=== PATIENT | male | born 1950 | race Caucasian/White ===

== ENCOUNTER 2017-08-03 18:41 | Observation (INO) | payer BC ==
--- OUTSIDE RECORDS SUMMARY | 2017-08-03 18:44 | XMS REPORT | Clinical Summary ---
:1950 Author Organization [facility] Address [address] [place] [address] Phone Care Team Providers Name Role Phone Unavailable Primary Care Provider Unavailable Allergies No Known Allergies Current Medications Prescription Sig. Disp. Refills Start Date End Date Status aspirin 81 MG Take 325 mg by Active chewable tablet mouth daily . cholecalciferol, Take 2,000 Active vitamin D3, 1,000 Units by mouth unit capsule daily . sertraline (ZOLOFT) Take 50 mg by Active 50 MG mouth daily. tabletIndications: Coronary artery disease involving [place] tribe heart without angina pectoris, unspecified vessel or lesion type QUEtiapine Take 50 mg by Active (SEROQUEL) 25 MG mouth nightly. tabletIndications: Coronary artery disease involving [place] heart without angina pectoris, unspecified vessel or lesion type atorvastatin Take 1 tablet 30 tablet 1 01/26/2017 01/26/2018 Active (LIPITOR) 40 MG (40 mg total) tablet by mouth nightly. folic acid Take 1 tablet 30 tablet 1 01/27/2017 01/27/2018 Active (FOLVITE) 1 MG (1 mg total) tablet by mouth daily. furosemide (LASIX) Take 1 tablet 30 tablet 1 01/26/2017 01/26/2018 Active 20 MG tablet (20 mg total) by mouth daily. metoprolol Take 1 tablet 60 tablet 1 01/26/2017 01/26/2018 Active (LOPRESSOR) 50 MG (50 mg total) tablet by mouth 2 (two) times daily. clopidogrel Take 300 mg by 01/11/2017 Discontinued (PLAVIX) 300 mg Tab mouth once. niacin (NIASPAN) Take 1,500 mg 01/11/2017 Discontinued 1000 MG CR tablet by mouth nightly. atorvastatin Take 5 mg by 01/26/2017 Discontinued (LIPITOR) 10 MG mouth daily . tablet multivitamin with Take 1 tablet 01/11/2017 Discontinued minerals tablet by mouth daily. coenzyme Q10 100 mg Take 100 mg by 01/11/2017 Discontinued capsule mouth daily. clopidogrel Take 75 mg by 01/26/2017 Discontinued (PLAVIX) 75 mg mouth daily. tabletIndications: Coronary artery disease involving [place] heart without angina pectoris, unspecified vessel or lesion type acetaminophen-codei Take 1-2 50 tablet 0 01/26/2017 02/05/2017 ne (TYLENOL #3) tablets by 300-30 mg per mouth every 4 tablet (four) hours as needed for up to 10 days. Max Daily Amount: 12 tablets Hospital, Clinic, or Ordered Dose Route Frequency Start Date End Date Status Other Facility Administered Medication chlorhexidine Top Once 01/13/2017 01/26/2017 Discontinued (HIBICLENS) external liquid 4%Indications: Coronary artery disease involving [place] heart without angina pectoris, unspecified vessel or lesion type chlorhexidine Top Once 01/13/2017 01/26/2017 Discontinued (HIBICLENS) external liquid 4%Indications: Coronary artery disease involving [place] heart without angina pectoris, unspecified vessel or lesion type Active Problems Problem Noted Date Acute postoperative pain 01/21/2017 Essential hypertension 01/21/2017 Coronary artery disease involving [place] 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) 01/19/2017 Other shock ([facility]) 01/19/2017 PA (myocardial infarction) ([facility]) 03/08/1997 Overview: Stents x3 2005 x1 Coronary artery disease Carotid artery occlusion High cholesterol Encounters Date Type Specialty Care Team Description 02/03/2017 Clinical Support Cardiology Salvador Burkett, Post-operative state (Primary Dx) 01/19/2017 - Hospital Encounter Cardiology Salvador Burkett, Coronary artery disease 01/26/2017 MD involving [place] tribe heart without angina pectoris, unspecified vessel or lesion type;Other shock ([facility]);Acute blood loss anemia;Acute pulmonary insufficiency following thoracic surgery ([facility]);S/P CABG x 4;Essential hypertension 01/19/2017 Procedure Pass 01/19/2017 Surgery Salvador Burkett, BYPASS,AORTO CORONARY RAVINDRA/SVG 01/11/2017 Hospital Encounter Salvador Burkett MD 01/11/2017 Office Visit Cardiology Salvador Burkett Coronary artery disease involving [place] tribe heart without angina pectoris, unspecified vessel or lesion type (Primary Dx);Coronary artery disease involving s[place]tz tribe coronary artery of s[place] tribe heart without angina pectoris;Occlusion of carotid artery, unspecified laterality;High cholesterol 01/11/2017 Anesthesia Event Isaiah Sloan AA 01/11/2017 Orders Only Cardiology Salvador Burkett Coronary artery disease of s[place]tz tribe artery of [place] tribe heart with stable angina pectoris (HCC) (Primary Dx);Coronary artery disease involving [place] tribe heart without angina pectoris, unspecified vessel or lesion type after 08/02/2016 Family History Medical History Relation Name Comments Heart disease Father Hypertension Mother Relation Name Status Comments Father Mother Social History Tobacco Use Types Packs/Day Years Used Date Former Smoker 2 15 Quit: 1986 Smokeless Tobacco: Never Used Alcohol Use Drinks/Week oz/Week Comments Yes 1 Glasses of wine 5.4 occ 8 Cans of beer 0 Standard drinks or equivalent Sex Assigned at Date Recorded Not on file Last Filed Vital Signs Vital Sign Reading Time Taken Blood Pressure 106/65 02/03/2017 10:37 AM [employer] Pulse 69 02/03/2017 10:37 AM [employer] Temperature 36.7 C (98.1 F) 02/03/2017 10:37 AM [employer] Respiratory Rate 16 02/03/2017 10:37 AM [employer] Oxygen Saturation 99% 02/03/2017 10:37 AM [employer] Inhaled Oxygen Concentration - - Weight 67.6 kg (149 lb) 02/03/2017 10:37 AM [employer] Height 180.3 cm (5' 11") 02/03/2017 10:37 AM [employer] Body Mass Index 20.78 02/03/2017 10:37 AM [employer] Plan of Treatment Health Maintenance Due Date Last Done Comments INFLUENZA VACCINE 12/06/2017 Procedures Procedure Name Priority Date/Time Associated Diagnosis Comments ENDOSCOPIC HARVEST,VEIN 01/19/2017 7:30 AM CAOD [employer] BYPASS,AORTO CORONARY 01/19/2017 7:30 AM CAOD RAVINDRA/SVG [employer] after 08/02/2016 Results RHYTHM STRIP - SCAN (02/18/2017 10:22 AM)Only the most recent of3 resultswithin the time period is included.PERMANENT LAB REPORT - SCAN (01/27/2017 11:20 AM) ECHOCARDIOGRAM REPORT - SCAN (01/26/2017 2:50 PM)CBC (Hemogram only) (2016 4:31 AM) Component Value Ref Range WBC 11.2 (H) 3.5 - 10.5 K/L RBC 2.92 (L) 4.63 - 6.08 M/L Hemoglobin 8.7 (L) 13.7 - 17.5 GM/DL Hematocrit 26.4 (L) 40.1 - 51.0 % MCV 90.4 79.0 - 92.2 fL MCH 29.8 25.7 - 32.2 pg MCHC 33.0 32.3 - 36.5 GM/DL RDW 13.4 11.6 - 14.4 % Platelets 461 (H) 150 - 450 K/CU MM MPV 9.5 9.4 - 12.4 fL nRBC 0 0 - 0 /100 WBC Specimen Performing Laboratory Blood - Arm, [address] [address] Magnesium (01/26/2017 4:31 AM)Only the most recent of6 resultswithin the time period is included. Component Value Ref Range Magnesium 1.7 1.6 - 2.6 mg/dL Specimen Performing Laboratory Blood - Arm, [address] [address] Basic Metabolic Panel (01/26/2017 4:31 AM)Only the most recent of8 resultswithin the time period is included. Component Value Ref Range Sodium 135 (L) 136 - 145 meq/L Potassium 4.2 3.5 - 5.1 meq/L Chloride 101 98 - 107 meq/L CO2 29 22 - 29 meq/L BUN 15 7 - 21 mg/dL Creatinine 0.89 0.57 - 1.25 mg/dL Glucose 91 70 - 105 mg/dL Calcium 8.8 8.4 - 10.2 mg/dL EGFR 86Comment: ESTIMATED GFR IS NOT ACCURATE mL/min/1.73 sq m CREATININE CLEARANCE IN PREDICTING GLOMERULAR FILTRATION RATE. ESTIMATED GFR IS NOT APPLICABLE FOR DIALYSIS PATIENTS. Specimen Performing Laboratory Blood - Arm, [address] [address] 2D Echo W/Doppler(CW/PW/Color) (01/25/2017 11:29 AM) Component Value Ref Range Ejection Fraction Specimen Performing Laboratory [facility] ECHO HEARTLAB MKCKESSON CPACS Narrative Transthoracic Echocardiography Report (TTE) Demographics Patient Name Sandeep MINOR of Study 01/25/2017 KAYLAH [id number] Male Visit Number [id number] Unknown [id number] Room Number 1130 Number Date of Birth2Referring Physician Age66 year(s)Fusion Operator Lazaro Whelan Interpreting Physician DAVE Alejandre Fellow Chayo Crocker Procedure Type of Study TTE procedure:2DECHO W DOPPLER(CW/PW/COLOR) (MI) Indications:Evaluation of LV Function Post AMI. Clinical History HGB 7.9 HCT 23.9 % S/P CABG x4 Acute blood loss anemia acute pulm insufficiency following thoracic surgery HTN PA Contrast Medium: Definity. Amount - 2 ml Height: 71 inches Weight: 65.77 kg (145 lbs) BSA: 1.84 m^2 BMI: 20.22 kg/m^2 HR: 97 bpm BP: 108/64 mmHg Summary LV endocardium is adequately visualized with IV ultrasound enhancing agent. The left ventricle is chamber size (by vol index) is normal. No evidence of LV hypertrophy. All of the LV segments contract normally . Septal motion is abnormal, likely related to prior cardiac surgery . LVEF by Raymundo's method of disk assessment is lower limits of normal (50-55%) . Grade 1 diastolic dysfunction (impaired relaxation and low-normal LA pressure). No significant pericardial effusion is visualized. The estimated RA pressure by IVC dynamics 0-5mmHg . TV structure is normal. A trace of tricuspid regurgitation. Unable to estimate peak systolic PA pressure; inadequate TR velocity signal. Previous Study No prior exam available for comparison. Signature Findings Rhythm/BPRegular sinus rhythm during the exam. Left Ventricle LV endocardium is adequately visualized with IV ultrasound enhancing agent. The left ventricle is chamber size (by vol index) is normal. No evidence of LV hypertrophy. All of the LV segments contract normally . Septal motion is abnormal, likely related to prior cardiac surgery . LVEF by Raymundo's method of disk assessment is lower limits of normal (50-55% ) . Grade 1 diastolic dysfunction (impaired relaxation and low-normal LA pressure). Left AtriumLA is incompletely visualized, but likely normal in size. Right VentricleThe right ventricular chamber size and systolic function are within normal limits. Right Atrium RA size is normal. Aortic Valve Normal AoV structure and function. Mitral Valve Normal MV structure. Trace mitral regurgitation. Tricuspid ValveTV structure is normal. A trace of tricuspid regurgitation. Unable to estimate peak systolic PA pressure; inadequate TR velocity signal. Pulmonic Valve Normal PV structure and function by limited views and Doppler. AortaAortic root size (SInus of Valsalva diameter) is normal . PericardiumNo significant pericardial effusion is visualized. IVC/SVC/PA/PV/PleuralThe estimated RA pressure by IVC dynamics 0-5mmHg . Chambers/Structures Left Ventricle LVEDV Raymundo's:66.38 ml LVESV Raymundo's:32.77 ml LVEF Raymundo's: 50.6 % LVEDVI: 36 ml/m^2 LVOT Diameter: 2.13 cmLVESVI: 18 ml/m^2 Aorta Ao Root S of Claudine.: 2.99 cm Vena Cava IVC Inspirium: 0.76 cmIVC Expirium: 0.88 cm Doppler/Quantitative Measurements Mitral Valve MV Peak E-Wave: 0.5 m/s MV Peak A-Wave: 0.59 m/s E/A Ratio: 0.85 Peak Gradient: 1.01 mmHg MV Iain. Peak: Tissue Doppler E' Lateral Velocity: 0.08 m/s E/E': 6.23 Aortic Valve Peak Velocity: 1.11 m/sMean Velocity: 0.8 m/s Peak Gradient: 4.89 mmHg Mean Gradient: 2.87 mmHg AV Area (continuity): 3.36 cm^2 AV VTI: 14.15 cm AV DVI: 0.94 LVOT Peak Velocity: 0.92 m/s Peak Gradient: 3.41 mmHg Mean Velocity: 0.61 m/s Mean Gradient: 1.7 mmHg LVOT Diameter: 2.13 cmLVOT VTI: 13.34 cm LVOT Area: 3.56 cm^2LVOT SV:47.51 ml LVOT CO: 4.61 l/min LVOT CI: 2.51 l/min/m^2 Tricuspid Valve TR Velocity: 1.31 m/s TR Gradient: 6.82 mmHg Procedure Note Interface, External Ris In - 01/26/2017 2:20 PM [employer] Transthoracic Echocardiography Report (TTE) Demographics Patient Name JERAD MINOR Date of Study 01/25/2017 KAYLAH Gender Male Visit Number [id number] Race Unknown Room Number 1130 Number Date of 1950 Referring Physician Age 66 year(s) Fusion Operator Lazaro Whelan Interpreting Malvin Winkler, Physician Fellow Chayo Crocker Procedure Type of Study TTE procedure:2DECHO W DOPPLER(CW/PW/COLOR) (MI) Indications:Evaluation of LV Function Post AMI. Clinical History HGB 7.9 HCT 23.9 % S/P CABG x4 Acute blood loss anemia acute pulm insufficiency following thoracic surgery HTN PA Contrast Medium: Definity. Amount - 2 ml Height: 71 inches Weight: 65.77 kg (145 lbs) BSA: 1.84 m^2 BMI: 20.22 kg/m^2 HR: 97 bpm BP: 108/64 mmHg Summary LV endocardium is adequately visualized with IV ultrasound enhancing agent. The left ventricle is chamber size (by vol index) is normal. No evidence of LV hypertrophy. All of the LV segments contract normally . Septal motion is abnormal, likely related to prior cardiac surgery . LVEF by Raymundo's method of disk assessment is lower limits of normal (50-55%) . Grade 1 diastolic dysfunction (impaired relaxation and low-normal LA pressure). No significant pericardial effusion is visualized. The estimated RA pressure by IVC dynamics 0-5mmHg . TV structure is normal. A trace of tricuspid regurgitation. Unable to estimate peak systolic PA pressure; inadequate TR velocity signal. Previous Study No prior exam available for comparison. Signature Findings Rhythm/BP Regular sinus rhythm during the exam. Left Ventricle LV endocardium is adequately visualized with IV ultrasound enhancing agent. The left ventricle is chamber size (by vol index) is normal. No evidence of LV hypertrophy. All of the LV segments contract normally . Septal motion is abnormal, likely related to prior cardiac surgery . LVEF by Raymundo's method of disk assessment is lower limits of normal (50-55%) . Grade 1 diastolic dysfunction (impaired relaxation and low-normal LA pressure). Left Atrium LA is incompletely visualized, but likely normal in size. Right Ventricle The right ventricular chamber size and systolic function are within normal limits. Right Atrium RA size is normal. Aortic Valve Normal AoV structure and function. Mitral Valve Normal MV structure. Trace mitral regurgitation. Tricuspid Valve TV structure is normal. A trace of tricuspid regurgitation. Unable to estimate peak systolic PA pressure; inadequate TR velocity signal. Pulmonic Valve Normal PV structure and function by limited views and Doppler. Aorta Aortic root size (SInus of Valsalva diameter) is normal . Pericardium No significant pericardial effusion is visualized. IVC/SVC/PA/PV/Pleural The estimated RA pressure by IVC dynamics 0-5mmHg . Chambers/Structures Left Ventricle LVEDV Raymundo's:66.38 ml LVESV Raymundo's:32.77 ml LVEF Raymundo's: 50.6 % LVEDVI: 36 ml/m^2 LVOT Diameter: 2.13 cm LVESVI: 18 ml/m^2 Aorta Ao Root S of Claudine.: 2.99 cm Vena Cava IVC Inspirium: 0.76 cm IVC Expirium: 0.88 cm Doppler/Quantitative Measurements Mitral Valve MV Peak E-Wave: 0.5 m/s MV Peak A-Wave: 0.59 m/s E/A Ratio: 0.85 Peak Gradient: 1.01 mmHg MV Iain. Peak: Tissue Doppler E' Lateral Velocity: 0.08 m/s E/E': 6.23 Aortic Valve Peak Velocity: 1.11 m/s Mean Velocity: 0.8 m/s Peak Gradient: 4.89 mmHg Mean Gradient: 2.87 mmHg AV Area (continuity): 3.36 cm^2 AV VTI: 14.15 cm AV DVI: 0.94 LVOT Peak Velocity: 0.92 m/s Peak Gradient: 3.41 mmHg Mean Velocity: 0.61 m/s Mean Gradient: 1.7 mmHg LVOT Diameter: 2.13 cm LVOT VTI: 13.34 cm LVOT Area: 3.56 cm^2 LVOT SV:47.51 ml LVOT CO: 4.61 l/min LVOT CI: 2.51 l/min/m^2 Tricuspid Valve TR Velocity: 1.31 m/s TR Gradient: 6.82 mmHg Iron, TIBC, % sat. (without ferritin) (01/25/2017 10:16 AM) Component Value Ref Range Iron 22 (L) 40 - 160 ug/dL TIBC 248 (L) 250 - 450 ug/dL Iron % Saturation 9 (L) 20 - 55 % Specimen Performing Laboratory Blood [address] [address] Ferritin (01/25/2017 10:16 AM) Component Value Ref Range Ferritin 412 (H) 5 - 275 ng/mL Specimen Performing Laboratory Blood [address] [address] XR chest 1 view portable / bedside (01/25/2017 4:52 AM)Only the most recent of9 resultswithin the time period is included. Specimen Performing Laboratory GE RIS Narrative FINAL REPORT Chest one view INDICATION: Pneumothorax COMPARISON: 01/24/2017 IMPRESSION: A small left apical pneumothorax is not significantly changed post chest tube removal. Median sternotomy changes are noted. The cardiomediastinal contours are stable. Bilateral interstitial and groundglass lung opacities are stable with no new consolidation seen. There is pleural thickening with small pleural effusions. Signed: Meme Houston MD Report Verified Date/Time:01/25/2017 07:36:17 Reading Location: [facility] B1 C013V Neuro Reading Room Procedure Note Interface, External Ris In - 01/25/2017 7:38 AM [employer] FINAL REPORT Chest one view INDICATION: Pneumothorax COMPARISON: 01/24/2017 IMPRESSION: A small left apical pneumothorax is not significantly changed post chest tube removal. Median sternotomy changes are noted. The cardiomediastinal contours are stable. Bilateral interstitial and groundglass lung opacities are stable with no new consolidation seen. There is pleural thickening with small pleural effusions. Signed: Meme Houston MD Report Verified Date/Time: 01/25/2017 07:36:17 Reading Location: [facility] C013V Neuro Reading Room with platelet count + automated diff (01/24/2017 5:10 AM)Only the most recent of8 resultswithin the time period is included. Component Value Ref Range WBC 11.2 (H) 3.5 - 10.5 K/L RBC 2.67 (L) 4.63 - 6.08 M/L Hemoglobin 7.9 (L) 13.7 - 17.5 GM/DL Hematocrit 23.9 (L) 40.1 - 51.0 % MCV 89.5 79.0 - 92.2 fL MCH 29.6 25.7 - 32.2 pg MCHC 33.1 32.3 - 36.5 GM/DL RDW 13.4 11.6 - 14.4 % Platelets 340 150 - 450 K/CU MM MPV 9.6 9.4 - 12.4 fL nRBC 0 0 - 0 /100 WBC % Neutros 64 % % Lymphs 13 % % Monos 12 % % Eos 7 % % Baso 1 % # Neutros 7.13 (H) 1.78 - 5.38 K/L # Lymphs 1.50 1.32 - 3.57 K/L # Monos 1.31 (H) 0.30 - 0.82 K/L # Eos 0.79 (H) 0.04 - 0.54 K/L # Baso 0.08 0.01 - 0.08 K/L Immature Granulocytes-Relative 3 (H) 0 - 1 % Specimen Performing Laboratory Blood - Arm, Left [address] [address] CBC with platelet count + automated diff (01/24/2017 5:10 AM)Only the most recent of8 resultswithin the time period is included. Specimen Performing Laboratory Blood Narrative The following orders were created for panel order CBC with platelet count + automated diff. Procedure Abnormality Status --------- ------ CBC with platelet count ...[[id number]]AbnormalFinal result Please view results for these tests on the individual orders. Calcium, Ionized (01/23/2017 4:25 AM)Only the most recent of9 resultswithin the time period is included. Component Value Ref Range Calcium, Ion 1.14 1.12 - 1.27 mmol/L pH, Blood 7.36 Specimen Performing Laboratory Blood [address] [address] TRANSFUSION SERVICE REPORT - SCAN (01/21/2017 5:41 PM)Only the most recent of3 resultswithin the time period is included.Prepare PLT (01/20/2017 11:54 PM) Component Value Ref Range Unit ABO B Pos UNIT NUMBER [id number] Status TRANSFUSED Blood Bank Product PLATELETS PRODUCT CODE W0941E40 Unit ABO O Pos UNIT NUMBER [id number] Status TRANSFUSED Blood Bank Product PLATELETS PRODUCT CODE [id number] Specimen Performing Laboratory [employer] [place] Prepare cryoprecipitate (01/20/2017 11:54 PM) Component Value Ref Range Unit ABO B Pos UNIT NUMBER [id number] Status TRANSFUSED Blood Bank Product CRYOPRECIPITATE PRODUCT CODE [id number] Specimen Performing Laboratory [employer] [place] Prepare RBC (01/20/2017 11:54 PM)Only the most recent of2 resultswithin the time period is included. Component Value Ref Range CROSSMATCH COMPATIBLE Unit ABO O Pos UNIT NUMBER [id number] Status TRANSFUSED Blood Bank Product RED BLOOD CELLS PRODUCT CODE U8671G43 CROSSMATCH COMPATIBLE Unit ABO O Pos UNIT NUMBER [id number] Status TRANSFUSED Blood Bank Product RED BLOOD CELLS PRODUCT CODE [id number] Specimen Performing Laboratory [employer] [place] POC-Glucose meter (01/20/2017 5:47 AM)Only the most recent of5 resultswithin the time period is included. Component Value Ref Range POC-Glucose Meter 149 (H)Comment: TESTED AT [address] 70 - 110 mg/[place] [address] Specimen Performing Laboratory Blood [address] [address] Glucose-Stat Lab (01/19/2017 5:09 PM)Only the most recent of6 resultswithin the time period is included. Component Value Ref Range Glucose 153 (H) 70 - 110 mg/dL Specimen Performing Laboratory Blood, Arterial [address] [address] Blood gas, arterial (01/19/2017 5:09 PM)Only the most recent of7 resultswithin the time period is included. Component Value Ref Range pH, Arterial 7.38 7.35 - 7.45 pCO2, Arterial 42 35 - 45 mmHg pO2, Arterial 187 (H) 80 - 90 mmHg O2 Sat, Arterial 99.3 (H) 96.0 - 97.0 % HCO3, Arterial 25 21 - 29 mmol/L Base Excess, Arterial -0.6 -2.0 - 3.0 mmol/L Patient Temperature 36.7 C FIO2 40.0 % Specimen Performing Laboratory Blood, Arterial [address] [address] ECG 12 lead (01/19/2017 5:09 PM)Only the most recent of2 resultswithin the time period is included. Specimen Performing Laboratory GE MUSE Narrative Ventricular Rate 97 BPM Atrial Rate 97 BPM P-R Interval 158 ms QRS Duration 88 ms Q-T Interval 366 ms QTC Calculation(Bazett) 464 ms P [place] 87 degrees R [place] 76 degrees T [place] 71 degrees Normal sinus rhythm Low voltage QRS ST elevation, consider early repolarization, pericarditis, or injury Prolonged QT Abnormal ECG When compared with ECG of 11-JAN-2017 11:20, Vent. rate has increased BY34 BPM QRS voltage has decreased Criteria for Septal infarct are no longer Present ST elevation now present in Anterolateral leads , consider STEMI QT has lengthened Confirmed by MD DEANDRE, MOISES ([id number]) on 01/20/2017 6:02:59 AM Procedure Note Interface, External Ris In - 01/20/2017 6:03 AM [employer] Ventricular Rate 97 BPM Atrial Rate 97 BPM P-R Interval 158 ms QRS Duration 88 ms Q-T Interval 366 ms QTC Calculation(Bazett) 464 ms P [place] 87 degrees R [place] 76 degrees T [place] 71 degrees Normal sinus rhythm Low voltage QRS ST elevation, consider early repolarization, pericarditis, or injury Prolonged QT Abnormal ECG When compared with ECG of 11-JAN-2017 11:20, Vent. rate has increased BY 34 BPM QRS voltage has decreased Criteria for Septal infarct are no longer Present ST elevation now present in Anterolateral leads , consider STEMI QT has lengthened Confirmed by MD DEANDRE, MOISES ([id number]) on 01/20/2017 6:02:59 AM Hemoglobin and hematocrit (01/19/2017 4:29 PM) Component Value Ref Range Hemoglobin 8.3 (L) 13.7 - 17.5 GM/DL Hematocrit 25.0 (L) 40.1 - 51.0 % Specimen Performing Laboratory Blood [address] [address] Lactic acid, arterial, whole blood (01/19/2017 1:09 PM) Component Value Ref Range Lactate, Art 1.6 0.5 - 2.2 mmol/L Specimen Performing Laboratory Blood, Arterial [address] [address] Narrative Effective 07/10/2015: Units/Reference Range Change New: 0.5-2.2 mmol/LPrevious: 5-20 mg/dL Sodium Na-Stat Lab (01/19/2017 1:07 PM)Only the most recent of6 resultswithin the time period is included. Component Value Ref Range Sodium 136 135 - 148 meq/L Specimen Performing Laboratory Blood, Arterial [address] [address] Oxygen saturation, measured (01/19/2017 1:07 PM) Component Value Ref Range O2 Saturation (Measured) 90.4 % Specimen Performing Laboratory Blood [address] [address] Thromboelastograph (TEG) (01/19/2017 1:07 PM)Only the most recent of2 resultswithin the time period is included. Component Value Ref Range TEG Activated Clotting Time 5.8 4.0 - 7.0 minutes TEG Fibrinogen Activity 71.3 61.0 - 73.0 degrees TEG Platelet Aggregation 59.8 55.0 - 65.0 MM TEG Fibrinolysis 0.1 0.0 - 5.0 % TEG-H Activated Clotting Time 5.4 4.0 - 7.0 minutes TEG-H Fibrinogen Activity 71.8 61.0 - 73.0 degrees TEG-H Platelet Aggregation 64.8 55.0 - 65.0 MM TEG-H Fibrinolysis 0.0 0.0 - 5.0 % Specimen Performing Laboratory Blood [address] [address] aPTT (01/19/2017 1:07 PM)Only the most recent of2 resultswithin the time period is included. Component Value Ref Range PTT 34.2 22.5 - 36.0 seconds Specimen Performing Laboratory [address] [address] Prothrombin time/INR (01/19/2017 1:07 PM)Only the most recent of3 resultswithin the time period is included. Component Value Ref Range Protime 17.4 (H) 11.7 - 14.7 seconds INR 1.4 <=5.9 Specimen Performing Laboratory Blood [address] [address] Narrative RECOMMENDED COUMADIN/WARFARIN INR THERAPY RANGES STANDARD DOSE: 2.0 - 3.0 Includes: PROPHYLAXIS for venous thrombosis, systemic embolization; TREATMENT for venous thrombosis and/or pulmonary embolus. HIGH RISK: Target INR is 2.5-3.5 for patients with mechanical heart valves. Fibrinogen (01/19/2017 1:07 PM)Only the most recent of2 resultswithin the time period is included. Component Value Ref Range Fibrinogen 233 225 - 434 mg/dl Specimen Performing Laboratory Blood [address] [address] [facility] Critical Labs (ABG,NA,K,H&H,GLU) (01/19/2017 12:14 PM)Only the most recent of5 resultswithin the time period is included. Specimen Performing Laboratory Blood, Arterial Narrative The following orders were created for panel order [facility] Critical Labs (ABG,NA,K,H&H,GLU). Procedure Abnormality Status --------- ------ Blood gas, arterial[[id number]]AbnormalFinal result Sodium Na-Stat Lab[[id number]] NormalFinal result Potassium-Stat Lab[[id number]] NormalFinal result Glucose-Stat Lab[[id number]] AbnormalFinal result HGB/HCT (H&H)-Stat Lab[[id number]] Abnormal Final result Please view results for these tests on the individual orders. Potassium-Stat Lab (01/19/2017 12:14 PM)Only the most recent of5 resultswithin the time period is included. Component Value Ref Range Potassium 4.7 3.6 - 5.5 meq/L Specimen Performing Laboratory Blood, Arterial [address] [address] HGB/HCT (H&H)-Stat Lab (01/19/2017 12:14 PM)Only the most recent of5 resultswithin the time period is included. Component Value Ref Range Hemoglobin 9.2 (L) 13.0 - 16.8 g/dL Hematocrit 27.0 (L) 40.0 - 50.0 % Specimen Performing Laboratory Blood, Arterial [address] [address] POC ACTIVATED CLOTTING TIME (01/19/2017 10:00 AM)Only the most recent of3 resultswithin the time period is included. Component Value Ref Range Activated Clotting Time 109Comment: TESTED AT [address] sec [address] Specimen Performing Laboratory Blood [address] [address] Platelet count (01/19/2017 9:48 AM) Component Value Ref Range Platelets 131 (L) 150 - 450 K/CU MM Specimen Performing Laboratory Blood [address] [address] Blood gas, venous (01/19/2017 9:03 AM) Component Value Ref Range pH, Joe 7.36 7.32 - 7.42 pCO2, Joe 42 41 - 51 mmHg pO2, Joe 41 (H) 25 - 40 mmHg O2 Sat, Joe 88.5 (H) 40.0 - 70.0 % HCO3, Joe 25 21 - 29 mmol/L Base Excess, Joe -1.7 -2.0 - 3.0 mmol/L Patient Temperature 31.1 C FIO2 80.0 % Specimen Performing Laboratory Blood [address] [address] Platelet Aggregation: Function Screen (01/19/2017 6:16 AM) Component Value Ref Range Weak ADP 67 60 - 91 % Plt. Function Screen Interpretation 60-100% indicates normal platelet function Pathologist: Nando Olmedo MD (electronic signature) Platelets 272 150 - 450 K/CU MM Specimen Performing Laboratory Blood [address] [address] XR chest 2 views (01/11/2017 11:23 AM) Specimen Performing Laboratory GE RIS Narrative FINAL REPORT Chest x-ray, PA and lateral views Clinical History: Pre-Op Comparison:Correlated with CT dated August 09, 2014 Findings: Cardiomediastinal contours are unremarkable. There is a peripheral opacity in the right upper lung, possibly reflecting scarring versus a persistent cavitary lesion. Suggest CT correlation. Several additional tiny nodular opacities are seen at the right apex. Left lung is clear. No pneumothorax, or pleural effusion. Appear hyperinflated with increased retrosternal space and flattening of the diaphragm. Osseous structures the hamstring mild degenerative changes. Impression: Hyperinflation, suggestive of COPD/emphysema. Peripheral opacity in the right upper lung may reflect scarring versus persistent cavitary lesion. Small nodular opacities at the right apex. Suggest CT correlation if clinically appropriate. Signed: Fiona Walker MD Report Verified Date/Time:01/11/2017 12:03:27 Reading Location: [facility] Radiology Reading Room Procedure Note Interface, External Ris In - 01/11/2017 12:05 PM [employer] FINAL REPORT Chest x-ray, PA and lateral views Clinical History: Pre-Op Comparison: Correlated with CT dated August 09, 2014 Findings: Cardiomediastinal contours are unremarkable. There is a peripheral opacity in the right upper lung, possibly reflecting scarring versus a persistent cavitary lesion. Suggest CT correlation. Several additional tiny nodular opacities are seen at the right apex. Left lung is clear. No pneumothorax, or pleural effusion. Appear hyperinflated with increased retrosternal space and flattening of the diaphragm. Osseous structures the hamstring mild degenerative changes. Impression: Hyperinflation, suggestive of COPD/emphysema. Peripheral opacity in the right upper lung may reflect scarring versus persistent cavitary lesion. Small nodular opacities at the right apex. Suggest CT correlation if clinically appropriate. Signed: Fiona Walker MD Report Verified Date/Time: 01/11/2017 12:03:27 Reading Location: [facility] Radiology Reading Room Type and screen, automated (01/11/2017 10:48 AM) Component Value Ref Range ABO/RH AUTOMATED (BEAKER) O POSITIVE Ab Scrn NEGATIVE Specimen Performing Laboratory Blood [address] [address] Hemoglobin A1c (01/11/2017 10:48 AM) Component Value Ref Range Hemoglobin A1C 5.5 4.3 - 6.1 % Specimen Performing Laboratory Blood [address] [address] after 08/02/2016 Advance Directives Patient has advance directives. For more information, please contact:[address] [phone]
--- OUTSIDE RECORDS SUMMARY | 2017-08-03 18:45 | XMS REPORT ---
:1950 Author Organization [facility] Address [address] [place] [address] Care Team Providers Name Role Phone BEA LEIVA Unavailable Unavailable Problems This patient has no known problems. Allergies, Adverse Reactions, Alerts This patient has no known allergies or adverse reactions. Medications This patient has no known medications. Results Test Description Test Time Test Comments Text Results Atomic Results Result Comments MAGNESIUM 2017-01-26 07:36:00 Test Item Value Reference Range Comments MAGNESIUM (BEAKER) (test qjgd=085) 1.7 mg/dL 1.6-2.6 BASIC METABOLIC [id number] 07:36:00 Test Item Value Reference Range Comments SODIUM (BEAKER) (test 135 meq/L 136-145 oggl=574) POTASSIUM (BEAKER) (test 4.2 meq/L 3.5-5.1 gnjd=202) CHLORIDE (BEAKER) (test 101 meq/L 98-107 uxvy=144) CO2 (BEAKER) (test 29 meq/L 22-29 vfzu=436) BLOOD UREA NITROGEN 15 mg/dL 7-21 (BEAKER) (test esfy=813) CREATININE (BEAKER) (test 0.89 mg/dL 0.57-1.25 kkqn=661) GLUCOSE RANDOM (BEAKER) 91 mg/dL 70-105 (test ztfm=224) CALCIUM (BEAKER) (test 8.8 mg/dL 8.4-10.2 rwsz=149) EGFR (BEAKER) (test 86 mL/min/1.73 sq m ESTIMATED GFR IS NOT xghy=2674) ACCURATE CREATININE CLEARANCE IN PREDICTING GLOMERULAR FILTRATION RATE. ESTIMATED GFR IS NOT APPLICABLE FOR DIALYSIS PATIENTS. CBC (HEMOGRAM ONLY)2017-01-26 07:09:00 Test Item Value Reference Range Comments WHITE BLOOD CELL COUNT (BEAKER) (test fosy=669) 11.2 K/ L 3.5-10.5 RED BLOOD CELL COUNT (BEAKER) (test ohsx=121) 2.92 M/ L 4.63-6.08 HEMOGLOBIN (BEAKER) (test xcjm=051) 8.7 GM/DL 13.7-17.5 HEMATOCRIT (BEAKER) (test txvh=746) 26.4 % 40.1-51.0 MEAN CORPUSCULAR VOLUME (BEAKER) (test aglt=793) 90.4 fL 79.0-92.2 MEAN CORPUSCULAR HEMOGLOBIN (BEAKER) (test 29.8 pg 25.7-32.2 eobm=348) MEAN CORPUSCULAR HEMOGLOBIN CONC (BEAKER) (test 33.0 GM/DL 32.3-36.5 pojv=343) RED CELL DISTRIBUTION WIDTH (BEAKER) (test 13.4 % 11.6-14.4 dsbq=414) PLATELET COUNT (BEAKER) (test zhdi=759) 461 K/CU MM 150-450 MEAN PLATELET VOLUME (BEAKER) (test uruz=339) 9.5 fL 9.4-12.4 NUCLEATED RED BLOOD CELLS (BEAKER) (test 0 /100 WBC 0-0 pdvb=002) [id number] 11:04:00 Test Item Value Reference Range Comments FERRITIN (BEAKER) (test lpio=343) 412 ng/mL 5-275 IRON, TIBC, % SAT. (WITHOUT FERRITIN)2017-01-25 10:47:00 Test Item Value Reference Range Comments IRON (BEAKER) (test rpnt=359) 22 ug/dL 40-160 TOTAL IRON BINDING CAPACITY (BEAKER) (test 248 ug/dL 250-450 arap=138) IRON % SATURATION (2) (BEAKER) (test shnr=5224) 9 % 20-55 RAD, CHEST, 1 VIEW, NON [id number] 07:36:00Reason for exam:->ptxShould this be performed at the bedside?->YesFINAL REPORT Chest one view INDICATION: Pneumothorax COMPARISON: 01/24/2017 IMPRESSION: A small left apical pneumothorax is not significantly changed post chest tube removal. Median sternotomy changes are noted. The cardiomediastinal contours are stable. Bilateral interstitial and groundglass lung opacities are stable with no new consolidation seen. There is pleural thickening with small pleural effusions. Signed: Meme Houston MDReport Verified Date/Time: 2016 07:36:17 Reading Location: [address] Neuro Reading Room RAD, CHEST, 1 VIEW, NON [id number] 08:28:00Reason for exam:->ptxShould this be performed at the bedside?->YesFINAL REPORT CLINICAL HISTORY: ptx TECHNIQUE: 1 view of the chest. COMPARISON: 01/23/2017 IMPRESSION: A trace left apical pneumothorax is unchanged. Left lower chest tube is again seen. Minimal lower lung airspace opacities and trace bilateral pleural effusions are unchanged. The cardiomediastinal silhouette is magnified by technique with sternotomy wires. Signed: Marbella Baird MDReport Verified Date/Time: 01/24/2017 08:28:50 Reading Location: [address] Neuro Reading Room BASIC METABOLIC [id number] 06:24:00 Test Item Value Reference Range Comments SODIUM (BEAKER) (test 135 meq/L 136-145 fgoy=107) POTASSIUM (BEAKER) (test 4.0 meq/L 3.5-5.1 ggct=250) CHLORIDE (BEAKER) (test 104 meq/L 98-107 nmsh=042) CO2 (BEAKER) (test 26 meq/L 22-29 bmmd=046) BLOOD UREA NITROGEN 15 mg/dL 7-21 (BEAKER) (test mpzs=162) CREATININE (BEAKER) (test 0.86 mg/dL 0.57-1.25 iwil=875) GLUCOSE RANDOM (BEAKER) 97 mg/dL 70-105 (test hipf=545) CALCIUM (BEAKER) (test 8.4 mg/dL 8.4-10.2 ftzd=708) EGFR (BEAKER) (test 89 mL/min/1.73 sq m ESTIMATED GFR IS NOT cogo=4073) ACCURATE CREATININE CLEARANCE IN PREDICTING GLOMERULAR FILTRATION RATE. ESTIMATED GFR IS NOT APPLICABLE FOR DIALYSIS PATIENTS. CBC W/PLT COUNT & AUTO [id number] 05:30:00 Test Item Value Reference Range Comments WHITE BLOOD CELL COUNT (BEAKER) (test hazx=861) 11.2 K/ L 3.5-10.5 RED BLOOD CELL COUNT (BEAKER) (test hgdu=102) 2.67 M/ L 4.63-6.08 HEMOGLOBIN (BEAKER) (test srfw=143) 7.9 GM/DL 13.7-17.5 HEMATOCRIT (BEAKER) (test egxf=795) 23.9 % 40.1-51.0 MEAN CORPUSCULAR VOLUME (BEAKER) (test pixg=520) 89.5 fL 79.0-92.2 MEAN CORPUSCULAR HEMOGLOBIN (BEAKER) (test 29.6 pg 25.7-32.2 rosj=293) MEAN CORPUSCULAR HEMOGLOBIN CONC (BEAKER) (test 33.1 GM/DL 32.3-36.5 slfy=950) RED CELL DISTRIBUTION WIDTH (BEAKER) (test 13.4 % 11.6-14.4 jttd=235) PLATELET COUNT (BEAKER) (test vyiy=103) 340 K/CU MM 150-450 MEAN PLATELET VOLUME (BEAKER) (test bxfh=910) 9.6 fL 9.4-12.4 NUCLEATED RED BLOOD CELLS (BEAKER) (test 0 /100 WBC 0-0 mfmc=514) NEUTROPHILS RELATIVE PERCENT (BEAKER) (test 64 % bmeg=008) LYMPHOCYTES RELATIVE PERCENT (BEAKER) (test 13 % kybt=088) MONOCYTES RELATIVE PERCENT (BEAKER) (test 12 % hnra=626) EOSINOPHILS RELATIVE PERCENT (BEAKER) (test 7 % xmfw=811) BASOPHILS RELATIVE PERCENT (BEAKER) (test 1 % epov=540) NEUTROPHILS ABSOLUTE COUNT (BEAKER) (test 7.13 K/ L 1.78-5.38 tghm=379) LYMPHOCYTES ABSOLUTE COUNT (BEAKER) (test 1.50 K/ L 1.32-3.57 hiid=258) MONOCYTES ABSOLUTE COUNT (BEAKER) (test 1.31 K/ L 0.30-0.82 gtwb=722) EOSINOPHILS ABSOLUTE COUNT (BEAKER) (test 0.79 K/ L 0.04-0.54 xtki=740) BASOPHILS ABSOLUTE COUNT (BEAKER) (test 0.08 K/ L 0.01-0.08 lyuy=567) IMMATURE GRANULOCYTES-RELATIVE PERCENT (BEAKER) 3 % 0-1 (test sksq=2305) CBC W/PLT COUNT & AUTO [id number] 06:40:00 Test Item Value Reference Range Comments WHITE BLOOD CELL COUNT (BEAKER) (test mpri=716) 10.7 K/ L 3.5-10.5 RED BLOOD CELL COUNT (BEAKER) (test qkga=425) 3.05 M/ L 4.63-6.08 HEMOGLOBIN (BEAKER) (test frpe=060) 8.9 GM/DL 13.7-17.5 HEMATOCRIT (BEAKER) (test wyma=272) 27.4 % 40.1-51.0 MEAN CORPUSCULAR VOLUME (BEAKER) (test cjub=051) 89.8 fL 79.0-92.2 MEAN CORPUSCULAR HEMOGLOBIN (BEAKER) (test 29.2 pg 25.7-32.2 vskt=183) MEAN CORPUSCULAR HEMOGLOBIN CONC (BEAKER) (test 32.5 GM/DL 32.3-36.5 rukq=822) RED CELL DISTRIBUTION WIDTH (BEAKER) (test 13.5 % 11.6-14.4 psao=065) PLATELET COUNT (BEAKER) (test ybvq=262) 295 K/CU MM 150-450 MEAN PLATELET VOLUME (BEAKER) (test bvut=393) 10.1 fL 9.4-12.4 NUCLEATED RED BLOOD CELLS (BEAKER) (test 0 /100 WBC 0-0 sxnx=403) NEUTROPHILS RELATIVE PERCENT (BEAKER) (test 66 % fjuz=547) LYMPHOCYTES RELATIVE PERCENT (BEAKER) (test 12 % jrwe=313) MONOCYTES RELATIVE PERCENT (BEAKER) (test 11 % ivqv=023) EOSINOPHILS RELATIVE PERCENT (BEAKER) (test 10 % kflt=306) BASOPHILS RELATIVE PERCENT (BEAKER) (test 1 % tqve=517) NEUTROPHILS ABSOLUTE COUNT (BEAKER) (test 7.02 K/ L 1.78-5.38 fxbq=851) LYMPHOCYTES ABSOLUTE COUNT (BEAKER) (test 1.29 K/ L 1.32-3.57 oihn=897) MONOCYTES ABSOLUTE COUNT (BEAKER) (test 1.19 K/ L 0.30-0.82 zgmw=831) EOSINOPHILS ABSOLUTE COUNT (BEAKER) (test 1.04 K/ L 0.04-0.54 hyqh=924) BASOPHILS ABSOLUTE COUNT (BEAKER) (test 0.09 K/ L 0.01-0.08 zxro=789) IMMATURE GRANULOCYTES-RELATIVE PERCENT (BEAKER) 1 % 0-1 (test omgf=0236) [id number] 06:27:00 Test Item Value Reference Range Comments MAGNESIUM (BEAKER) (test 2.0 mg/dL 1.6-2.6 Specimen slightly hemolyzed zzbr=492) BASIC METABOLIC [id number] 06:27:00 Test Item Value Reference Range Comments SODIUM (BEAKER) (test 133 meq/L 136-145 yfut=321) POTASSIUM (BEAKER) (test 4.3 meq/L 3.5-5.1 Specimen slightly hftg=031) hemolyzed CHLORIDE (BEAKER) (test 102 meq/L 98-107 czen=097) CO2 (BEAKER) (test 27 meq/L 22-29 eqdo=272) BLOOD UREA NITROGEN 14 mg/dL 7-21 (BEAKER) (test zand=020) CREATININE (BEAKER) (test 0.84 mg/dL 0.57-1.25 Specimen slightly mjhe=099) hemolyzed GLUCOSE RANDOM (BEAKER) 101 mg/dL 70-105 (test modf=367) CALCIUM (BEAKER) (test 8.2 mg/dL 8.4-10.2 yswz=668) EGFR (BEAKER) (test 92 mL/min/1.73 sq m ESTIMATED GFR IS NOT qdtd=7111) ACCURATE CREATININE CLEARANCE IN PREDICTING GLOMERULAR FILTRATION RATE. ESTIMATED GFR IS NOT APPLICABLE FOR DIALYSIS PATIENTS. RAD, CHEST, 1 VIEW, NON [id number] 05:59:00Reason for exam:->s/p CABG, Chest tube in placeReason for exam:->chest tube found to be clampedShould this be performed at the bedside?->YesFINAL REPORT RAD , CHEST, 1 VIEW, NON DEPT INDICATION: s/p CABG, Chest tube inplacechest tube found to be clamped COMPARISON: Chest x-ray from yesterday TECHNIQUE: Single frontalview of the chest. IMPRESSION:Stable chest tube.Stable to slight improvement in the left apical pneumothorax.Stable cardiomegaly. Silhouette.Stable fibrotic changes in the lung apices and bronchiectasis in the mid and upper lungs which could reflect a remote prior mycobacterial infection.No acute osseous abnormality. Signed: Joe Real MDReport Verified Date/Time: 01/23/2017 05:59:29 Reading Location: [facility] [id number] Ortho Consult Reading Room Electronically signed by: JOE REAL MD on 2016 05:59 AMCALCIUM, [id number] 05:34:00 Test Item Value Reference Range Comments CALCIUM IONIZED (BEAKER) (test ynxy=221) 1.14 mmol/L 1.12-1.27 PH, BLOOD (BEAKER) (test lmvl=0056) 7.36 RAD, CHEST, 1 VIEW, NON [id number] 15:23:00Reason for exam:->ptxShould this be performed at the bedside?->YesFINAL REPORT Chest one view. Clinical history: ptx Comparison: 01/22/2017 Discussion: A frontal chest is provided. Cardiomediastinal contours are unchanged. A left chest tube is in stable position. A tiny left apical pneumothorax is unchanged. There is mild bibasilar atelectasis. Right upper lung lesion is again seen. No large effusion. Signed: Fiona Walker Verified Date/Time: 01/22/2017 15:23: 39 Reading Location: [facility] [id number] Consult Reading Room RAD, CHEST, 1 VIEW, NON [id number] 07:57:00Reason for exam:->s/p ACBx4, chest tubesFINAL REPORT Chest one view. Clinical history: s/p ACBx4, chest tubes Comparison: 01/21/2017 Discussion: A frontal chest is provided. Cardiomediastinal contours are unchanged.Lines and tubes are in stable position. No new consolidation. Small left apical pneumothorax is grossly unchanged. Probable small bilateral effusions. Signed: Fiona Walker Verified Date/Time: 01/22/2017 07:57:14 Reading Location: [facility] Radiology Reading Room Electronically signed by: FIONA WALKER M.D. on 01/22 07:57 [id number] 07:13:00 Test Item Value Reference Range Comments MAGNESIUM (BEAKER) (test hmkt=441) 1.5 mg/dL 1.6-2.6 BASIC METABOLIC [id number] 07:13:00 Test Item Value Reference Range Comments SODIUM (BEAKER) (test 132 meq/L 136-145 iitf=085) POTASSIUM (BEAKER) (test 3.7 meq/L 3.5-5.1 moip=565) CHLORIDE (BEAKER) (test 101 meq/L 98-107 mdpj=384) CO2 (BEAKER) (test 24 meq/L 22-29 mohx=572) BLOOD UREA NITROGEN 13 mg/dL 7-21 (BEAKER) (test cvto=006) CREATININE (BEAKER) (test 0.81 mg/dL 0.57-1.25 asmu=347) GLUCOSE RANDOM (BEAKER) 97 mg/dL 70-105 (test xjja=296) CALCIUM (BEAKER) (test 8.4 mg/dL 8.4-10.2 qsnq=508) EGFR (BEAKER) (test 96 mL/min/1.73 sq m ESTIMATED GFR IS NOT nlzt=3627) ACCURATE CREATININE CLEARANCE IN PREDICTING GLOMERULAR FILTRATION RATE. ESTIMATED GFR IS NOT APPLICABLE FOR DIALYSIS PATIENTS. CBC W/PLT COUNT & AUTO [id number] 07:02:00 Test Item Value Reference Range Comments WHITE BLOOD CELL COUNT (BEAKER) (test hjwg=073) 12.3 K/ L 3.5-10.5 RED BLOOD CELL COUNT (BEAKER) (test ckwm=969) 2.85 M/ L 4.63-6.08 HEMOGLOBIN (BEAKER) (test jhah=479) 8.4 GM/DL 13.7-17.5 HEMATOCRIT (BEAKER) (test hevb=245) 25.5 % 40.1-51.0 MEAN CORPUSCULAR VOLUME (BEAKER) (test jlxr=179) 89.5 fL 79.0-92.2 MEAN CORPUSCULAR HEMOGLOBIN (BEAKER) (test 29.5 pg 25.7-32.2 ipgu=998) MEAN CORPUSCULAR HEMOGLOBIN CONC (BEAKER) (test 32.9 GM/DL 32.3-36.5 aery=919) RED CELL DISTRIBUTION WIDTH (BEAKER) (test 13.5 % 11.6-14.4 efxv=217) PLATELET COUNT (BEAKER) (test nrfa=408) 196 K/CU MM 150-450 MEAN PLATELET VOLUME (BEAKER) (test dcsm=985) 10.6 fL 9.4-12.4 NUCLEATED RED BLOOD CELLS (BEAKER) (test 0 /100 WBC 0-0 kntg=245) NEUTROPHILS RELATIVE PERCENT (BEAKER) (test 74 % xbly=102) LYMPHOCYTES RELATIVE PERCENT (BEAKER) (test 10 % umih=344) MONOCYTES RELATIVE PERCENT (BEAKER) (test 10 % urnt=884) EOSINOPHILS RELATIVE PERCENT (BEAKER) (test 6 % qtrm=714) BASOPHILS RELATIVE PERCENT (BEAKER) (test 0 % jiri=067) NEUTROPHILS ABSOLUTE COUNT (BEAKER) (test 9.12 K/ L 1.78-5.38 mbne=470) LYMPHOCYTES ABSOLUTE COUNT (BEAKER) (test 1.18 K/ L 1.32-3.57 grme=161) MONOCYTES ABSOLUTE COUNT (BEAKER) (test 1.17 K/ L 0.30-0.82 nwwv=760) EOSINOPHILS ABSOLUTE COUNT (BEAKER) (test 0.70 K/ L 0.04-0.54 qgna=871) BASOPHILS ABSOLUTE COUNT (BEAKER) (test 0.04 K/ L 0.01-0.08 memm=438) IMMATURE GRANULOCYTES-RELATIVE PERCENT (BEAKER) 1 % 0-1 (test taez=4349) CALCIUM, [id number] 06:41:00 Test Item Value Reference Range Comments CALCIUM IONIZED (BEAKER) (test ldsx=493) 1.04 mmol/L 1.12-1.27 PH, BLOOD (BEAKER) (test vnic=9064) 7.41 RAD, CHEST, 1 VIEW, NON [id number] 07:38:00Reason for exam:->s/p ACBx4, chest tubesFINAL REPORT Chest one view AP 01/21/2017 7: 37 AM CLINICAL INDICATION: s/p ACBx4, chest tubes COMPARISON: 01/20/2017 IMPRESSION: There is an increasing small volume left pneumothorax, now with a basilar component. Hazy opacity in the right lung base suggests a combination of atelectasis and trace pleural fluid. Cardiomediastinal contours are stable. There is central pulmonary vasculature congestion without remarkable peripheral edema. Remaining support hardware is unchanged inposition. Signed: Magnus Zepeda MDReport Verified Date/Time: 01/21/2017 07:38:09 Reading Location: [address] Neuro Reading Room CALCIUM, [id number] 07:21:00 Test Item Value Reference Range Comments CALCIUM IONIZED (BEAKER) (test life=299) 1.08 mmol/L 1.12-1.27 PH, BLOOD (BEAKER) (test cdrj=3883) 7.44 [id number] 07:00:00 Test Item Value Reference Range Comments MAGNESIUM (BEAKER) (test bonl=093) 1.7 mg/dL 1.6-2.6 BASIC METABOLIC [id number] 07:00:00 Test Item Value Reference Range Comments SODIUM (BEAKER) (test 130 meq/L 136-145 rwwa=835) POTASSIUM (BEAKER) (test 3.9 meq/L 3.5-5.1 jbjt=580) CHLORIDE (BEAKER) (test 98 meq/L 98-107 esvd=503) CO2 (BEAKER) (test 25 meq/L 22-29 jqod=219) BLOOD UREA NITROGEN 10 mg/dL 7-21 (BEAKER) (test iaic=910) CREATININE (BEAKER) (test 0.84 mg/dL 0.57-1.25 upfg=592) GLUCOSE RANDOM (BEAKER) 129 mg/dL 70-105 (test watr=940) CALCIUM (BEAKER) (test 8.6 mg/dL 8.4-10.2 cheg=185) EGFR (BEAKER) (test 92 mL/min/1.73 sq m ESTIMATED GFR IS NOT pzbz=4311) ACCURATE CREATININE CLEARANCE IN PREDICTING GLOMERULAR FILTRATION RATE. ESTIMATED GFR IS NOT APPLICABLE FOR DIALYSIS PATIENTS. CBC W/PLT COUNT & AUTO [id number] 06:43:00 Test Item Value Reference Range Comments WHITE BLOOD CELL COUNT (BEAKER) (test rpml=158) 13.0 K/ L 3.5-10.5 RED BLOOD CELL COUNT (BEAKER) (test wrgc=347) 2.90 M/ L 4.63-6.08 HEMOGLOBIN (BEAKER) (test xtni=102) 8.6 GM/DL 13.7-17.5 HEMATOCRIT (BEAKER) (test wwrr=160) 25.9 % 40.1-51.0 MEAN CORPUSCULAR VOLUME (BEAKER) (test lcmg=595) 89.3 fL 79.0-92.2 MEAN CORPUSCULAR HEMOGLOBIN (BEAKER) (test 29.7 pg 25.7-32.2 ytsv=412) MEAN CORPUSCULAR HEMOGLOBIN CONC (BEAKER) (test 33.2 GM/DL 32.3-36.5 niri=583) RED CELL DISTRIBUTION WIDTH (BEAKER) (test 14.1 % 11.6-14.4 wsqm=061) PLATELET COUNT (BEAKER) (test sccv=126) 195 K/CU MM 150-450 MEAN PLATELET VOLUME (BEAKER) (test pfst=262) 10.4 fL 9.4-12.4 NUCLEATED RED BLOOD CELLS (BEAKER) (test 0 /100 WBC 0-0 ctup=915) NEUTROPHILS RELATIVE PERCENT (BEAKER) (test 82 % rfpm=140) LYMPHOCYTES RELATIVE PERCENT (BEAKER) (test 6 % rdrv=832) MONOCYTES RELATIVE PERCENT (BEAKER) (test 10 % efhp=215) EOSINOPHILS RELATIVE PERCENT (BEAKER) (test 2 % nnnz=167) BASOPHILS RELATIVE PERCENT (BEAKER) (test 0 % jazn=270) NEUTROPHILS ABSOLUTE COUNT (BEAKER) (test 10.62 K/ L 1.78-5.38 vbcu=281) LYMPHOCYTES ABSOLUTE COUNT (BEAKER) (test 0.81 K/ L 1.32-3.57 sgqk=942) MONOCYTES ABSOLUTE COUNT (BEAKER) (test 1.23 K/ L 0.30-0.82 yetq=341) EOSINOPHILS ABSOLUTE COUNT (BEAKER) (test 0.23 K/ L 0.04-0.54 zoet=594) BASOPHILS ABSOLUTE COUNT (BEAKER) (test 0.01 K/ L 0.01-0.08 reka=475) IMMATURE GRANULOCYTES-RELATIVE PERCENT (BEAKER) 1 % 0-1 (test bcyg=5592) RAD, CHEST, 1 VIEW, NON [id number] 13:36:00Reason for exam:-> pneumothoraxReason for exam:->chest tubes placed to gravityShould this be performed at the bedside?->YesFINAL REPORT Chest one view. Clinical history: pneumothoraxchest tubes placed to gravity Comparison: Discussion: A frontal chest is provided. Cardiomediastinal contours are unchanged. Lines and tubes are in stable position. There is a tiny left apical pneumothorax, marginally smaller since the previous study. No new consolidation. Mild bibasilar atelectasis. Unchanged lesion in the right upper lung. Signed: Fiona Walkereport Verified Date/Time: 01/20/2017 13:36:34 Reading Location: [address] Consult Reading Room RAD, CHEST, 1 VIEW, NON [id number] 07:51:00Reason for exam:->s/p ACBx4, chest tubesFINAL REPORT Chest one view. Clinical history: s/p ACBx4, chest tubes Comparison: 01/19/2017 Discussion: A frontal chest is provided. Cardiomediastinal contours are unchanged.ET and feeding tube have been removed. Other lines and tubes are unchanged. Tiny left apical pneumothorax is stable. There is mild nonspecific interstitial prominence, as before. No large effusion. Signed: Fiona Walkereport Verified Date/Time: 01/20/2017 07:51:20 Reading Location: [facility] Radiology Reading Room POCT-GLUCOSE [id number] 05 :56:00 Test Item Value Reference Range Comments POC-GLUCOSE METER (BEAKER) 149 mg/dL 70-110 TESTED AT [facility] [address] [facility] (test kpte=7585) [facility] [address] [id number] 04:56:00 Test Item Value Reference Range Comments MAGNESIUM (BEAKER) (test xbux=677) 2.0 mg/dL 1.6-2.6 BASIC METABOLIC [id number] 04:56:00 Test Item Value Reference Range Comments SODIUM (BEAKER) (test 135 meq/L 136-145 plfs=208) POTASSIUM (BEAKER) (test 4.5 meq/L 3.5-5.1 elxx=279) CHLORIDE (BEAKER) (test 106 meq/L 98-107 nkol=331) CO2 (BEAKER) (test 23 meq/L 22-29 mmxu=692) BLOOD UREA NITROGEN 11 mg/dL 7-21 (BEAKER) (test szpl=024) CREATININE (BEAKER) (test 0.83 mg/dL 0.57-1.25 hyyh=381) GLUCOSE RANDOM (BEAKER) 149 mg/dL 70-105 (test nvxs=878) CALCIUM (BEAKER) (test 8.3 mg/dL 8.4-10.2 rohh=088) EGFR (BEAKER) (test 93 mL/min/1.73 sq m ESTIMATED GFR IS NOT yhph=9237) ACCURATE CREATININE CLEARANCE IN PREDICTING GLOMERULAR FILTRATION RATE. ESTIMATED GFR IS NOT APPLICABLE FOR DIALYSIS PATIENTS. CBC W/PLT COUNT & AUTO [id number] 04:50:00 Test Item Value Reference Range Comments WHITE BLOOD CELL COUNT (BEAKER) (test dgjd=535) 11.7 K/ L 3.5-10.5 RED BLOOD CELL COUNT (BEAKER) (test pxyp=604) 3.02 M/ L 4.63-6.08 HEMOGLOBIN (BEAKER) (test gfhh=529) 8.8 GM/DL 13.7-17.5 HEMATOCRIT (BEAKER) (test mujs=292) 26.3 % 40.1-51.0 MEAN CORPUSCULAR VOLUME (BEAKER) (test ejpf=621) 87.1 fL 79.0-92.2 MEAN CORPUSCULAR HEMOGLOBIN (BEAKER) (test 29.1 pg 25.7-32.2 hide=472) MEAN CORPUSCULAR HEMOGLOBIN CONC (BEAKER) (test 33.5 GM/DL 32.3-36.5 fors=621) RED CELL DISTRIBUTION WIDTH (BEAKER) (test 14.8 % 11.6-14.4 mnkh=689) PLATELET COUNT (BEAKER) (test bqlx=840) 217 K/CU MM 150-450 MEAN PLATELET VOLUME (BEAKER) (test kwva=772) 9.9 fL 9.4-12.4 NUCLEATED RED BLOOD CELLS (BEAKER) (test 0 /100 WBC 0-0 xlfp=718) NEUTROPHILS RELATIVE PERCENT (BEAKER) (test 87 % dvvq=553) LYMPHOCYTES RELATIVE PERCENT (BEAKER) (test 5 % pjeo=090) MONOCYTES RELATIVE PERCENT (BEAKER) (test 8 % bvhv=608) EOSINOPHILS RELATIVE PERCENT (BEAKER) (test 0 % zffe=902) BASOPHILS RELATIVE PERCENT (BEAKER) (test 0 % byxt=031) NEUTROPHILS ABSOLUTE COUNT (BEAKER) (test 10.15 K/ L 1.78-5.38 pkpw=895) LYMPHOCYTES ABSOLUTE COUNT (BEAKER) (test 0.55 K/ L 1.32-3.57 jrpm=403) MONOCYTES ABSOLUTE COUNT (BEAKER) (test 0.87 K/ L 0.30-0.82 xyit=046) EOSINOPHILS ABSOLUTE COUNT (BEAKER) (test 0.00 K/ L 0.04-0.54 ilra=974) BASOPHILS ABSOLUTE COUNT (BEAKER) (test 0.05 K/ L 0.01-0.08 alrf=251) IMMATURE GRANULOCYTES-RELATIVE PERCENT (BEAKER) 0 % 0-1 (test lbob=7600) CALCIUM, [id number] 04:40:00 Test Item Value Reference Range Comments CALCIUM IONIZED (BEAKER) (test oizu=751) 1.11 mmol/L 1.12-1.27 PH, BLOOD (BEAKER) (test isvn=7023) 7.42 POCT-GLUCOSE [id number] 02:43:00 Test Item Value Reference Range Comments POC-GLUCOSE METER (BEAKER) 157 mg/dL 70-110 TESTED AT [address] (test tpvz=5838) [facility] [address] POCT-GLUCOSE [id number] 00:53:00 Test Item Value Reference Range Comments POC-GLUCOSE METER (BEAKER) 149 mg/dL 70-110 TESTED AT [address] (test zclq=0589) [place] [id number] POCT-GLUCOSE [id number] 18:55:00 Test Item Value Reference Range Comments POC-GLUCOSE METER (BEAKER) 158 mg/dL 70-110 TESTED AT [address] (test oktu=3000) [place] [id number] POCT-GLUCOSE [id number] 18:55:00 Test Item Value Reference Range Comments POC-GLUCOSE METER (BEAKER) 153 mg/dL 70-110 TESTED AT [facility] [address] (test bigg=4835) [facility] [address] BLOOD GAS, [id number] 17:14:00 Test Item Value Reference Range Comments PH ARTERIAL (BEAKER) (test zdpt=997) 7.38 7.35-7.45 PCO2 ARTERIAL (BEAKER) (test ukpp=632) 42 mmHg 35-45 PO2 ARTERIAL (BEAKER) (test ioyq=944) 187 mmHg 80-90 O2 SATURATION ARTERIAL (BEAKER) (test pgmj=190) 99.3 % 96.0-97.0 HCO3 ARTERIAL (BEAKER) (test ehwz=888) 25 mmol/L 21-29 BASE EXCESS ARTERIAL (BEAKER) (test wpmi=590) -0.6 mmol/L -2.0-3.0 PATIENT TEMPERATURE (BEAKER) (test vpec=2837) 36.7 C FIO2 (BEAKER) (test msah=2830) 40.0 % GLUCOSE-STAT [id number] 17:14:00 Test Item Value Reference Range Comments GLUCOSE RANDOM (BEAKER) (test eocw=785) 153 mg/dL 70-110 HEMOGLOBIN AND [id number] 16:51:00 Test Item Value Reference Range Comments HEMOGLOBIN (BEAKER) (test lbtk=830) 8.3 GM/DL 13.7-17.5 HEMATOCRIT (BEAKER) (test xpei=928) 25.0 % 40.1-51.0 CBC W/PLT COUNT & AUTO [id number] 15:46:00 Test Item Value Reference Range Comments WHITE BLOOD CELL COUNT (BEAKER) (test evos=882) 12.1 K/ L 3.5-10.5 RED BLOOD CELL COUNT (BEAKER) (test hqcf=324) 2.78 M/ L 4.63-6.08 HEMOGLOBIN (BEAKER) (test dlaq=344) 8.4 GM/DL 13.7-17.5 HEMATOCRIT (BEAKER) (test jpln=179) 25.1 % 40.1-51.0 MEAN CORPUSCULAR VOLUME (BEAKER) (test dbfj=523) 90.3 fL 79.0-92.2 MEAN CORPUSCULAR HEMOGLOBIN (BEAKER) (test 30.2 pg 25.7-32.2 eixa=072) MEAN CORPUSCULAR HEMOGLOBIN CONC (BEAKER) (test 33.5 GM/DL 32.3-36.5 iwoc=225) RED CELL DISTRIBUTION WIDTH (BEAKER) (test 14.3 % 11.6-14.4 tgpq=366) PLATELET COUNT (BEAKER) (test fnpm=421) 197 K/CU MM 150-450 MEAN PLATELET VOLUME (BEAKER) (test uims=355) 9.9 fL 9.4-12.4 NUCLEATED RED BLOOD CELLS (BEAKER) (test 0 /100 WBC 0-0 sfyp=405) NEUTROPHILS RELATIVE PERCENT (BEAKER) (test 87 % kmtm=252) LYMPHOCYTES RELATIVE PERCENT (BEAKER) (test 5 % qbcc=887) MONOCYTES RELATIVE PERCENT (BEAKER) (test 7 % pvob=477) EOSINOPHILS RELATIVE PERCENT (BEAKER) (test 0 % pxwx=579) BASOPHILS RELATIVE PERCENT (BEAKER) (test 0 % xaax=384) NEUTROPHILS ABSOLUTE COUNT (BEAKER) (test 10.55 K/ L 1.78-5.38 crhq=843) LYMPHOCYTES ABSOLUTE COUNT (BEAKER) (test 0.55 K/ L 1.32-3.57 wqkl=012) MONOCYTES ABSOLUTE COUNT (BEAKER) (test 0.85 K/ L 0.30-0.82 mgft=681) EOSINOPHILS ABSOLUTE COUNT (BEAKER) (test 0.02 K/ L 0.04-0.54 ylif=653) BASOPHILS ABSOLUTE COUNT (BEAKER) (test 0.01 K/ L 0.01-0.08 dznr=928) IMMATURE GRANULOCYTES-RELATIVE PERCENT (BEAKER) 1 % 0-1 (test hmga=7706) THROMBOELASTOGRAPH (TEG)[id number] 14:40:00 Test Item Value Reference Range Comments TEG ACTIVATED CLOTTING TIME (BEAKER) (test 5.8 minutes 4.0-7.0 zdit=4116) TEG FIBRINOGEN ACTIVITY (BEAKER) (test 71.3 degrees 61.0-73.0 aezl=0179) TEG PLT. AGGREGATION (BEAKER) (test nycf=4292) 59.8 MM 55.0-65.0 TEG FIBRINOLYSIS (BEAKER) (test ttwr=3493) 0.1 % 0.0-5.0 TGH ACTIVATED CLOTTING TIME (BEAKER) (test 5.4 minutes 4.0-7.0 xpgy=7931) [facility] FIBRINOGEN ACTIVITY (BEAKER) (test 71.8 degrees 61.0-73.0 uddd=1759) TGH PLT. AGGREGATION (BEAKER) (test mffj=7569) 64.8 MM 55.0-65.0 TGH FIBRINOLYSIS (BEAKER) (test iixq=8169) 0.0 % 0.0-5.0 [id number] 13:46:00 Test Item Value Reference Range Comments FIBRINOGEN LEVEL (BEAKER) (test ujbp=786) 233 mg/dl 225-434 [id number] 13:46:00 Test Item Value Reference Range Comments PARTIAL THROMBOPLASTIN TIME (BEAKER) (test 34.2 seconds 22.5-36.0 yxto=547) PROTHROMBIN TIME/[id number] 13:45:00 Test Item Value Reference Range Comments PROTIME (BEAKER) (test owky=538) 17.4 seconds 11.7-14.7 INR (BEAKER) (test pdoa=766) 1.4 <=5.9 RECOMMENDED COUMADIN/WARFARIN INR THERAPY RANGESSTANDARD DOSE: 2.0 - 3.0 Includes: PROPHYLAXIS forvenous thrombosis, systemic embolization; TREATMENT for venous thrombosis and/or pulmonary embolus.HIGH RISK: Target INR is 2.5-3.5 for patients with mechanical heart valves.LACTIC ACID, ARTERIAL, WHOLE [id number] 13:43:00 Test Item Value Reference Range Comments LACTATE BLOOD ARTERIAL (2) (BEAKER) (test 1.6 mmol/L 0.5-2.2 aoew=8251) Effective 07/10/2015: Units/Reference Range ChangeNew: 0.5-2.2 mmol/L Previous: 5 -20 mg/[id number] 13:43:00 Test Item Value Reference Range Comments MAGNESIUM (BEAKER) (test hmnt=014) 1.8 mg/dL 1.6-2.6 BASIC METABOLIC [id number] 13:43:00 Test Item Value Reference Range Comments SODIUM (BEAKER) (test 138 meq/L 136-145 nnsb=537) POTASSIUM (BEAKER) (test 4.4 meq/L 3.5-5.1 kwdx=580) CHLORIDE (BEAKER) (test 108 meq/L 98-107 wdfy=230) CO2 (BEAKER) (test 23 meq/L 22-29 fknv=334) BLOOD UREA NITROGEN 14 mg/dL 7-21 (BEAKER) (test filu=819) CREATININE (BEAKER) (test 0.88 mg/dL 0.57-1.25 szlr=469) GLUCOSE RANDOM (BEAKER) 148 mg/dL 70-105 (test ybcl=846) CALCIUM (BEAKER) (test 8.4 mg/dL 8.4-10.2 wuhg=826) EGFR (BEAKER) (test 87 mL/min/1.73 sq m ESTIMATED GFR IS NOT vslu=8201) ACCURATE CREATININE CLEARANCE IN PREDICTING GLOMERULAR FILTRATION RATE. ESTIMATED GFR IS NOT APPLICABLE FOR DIALYSIS PATIENTS. CBC W/PLT COUNT & AUTO [id number] 13:35:00 Test Item Value Reference Range Comments WHITE BLOOD CELL COUNT (BEAKER) (test udnc=329) 14.4 K/ L 3.5-10.5 RED BLOOD CELL COUNT (BEAKER) (test uagj=952) 3.05 M/ L 4.63-6.08 HEMOGLOBIN (BEAKER) (test vlxx=104) 9.2 GM/DL 13.7-17.5 HEMATOCRIT (BEAKER) (test rfwh=481) 27.5 % 40.1-51.0 MEAN CORPUSCULAR VOLUME (BEAKER) (test fbjp=526) 90.2 fL 79.0-92.2 MEAN CORPUSCULAR HEMOGLOBIN (BEAKER) (test 30.2 pg 25.7-32.2 oxdr=769) MEAN CORPUSCULAR HEMOGLOBIN CONC (BEAKER) (test 33.5 GM/DL 32.3-36.5 mvlj=610) RED CELL DISTRIBUTION WIDTH (BEAKER) (test 13.8 % 11.6-14.4 sbrw=226) PLATELET COUNT (BEAKER) (test mspx=630) 232 K/CU MM 150-450 MEAN PLATELET VOLUME (BEAKER) (test jtak=723) 9.7 fL 9.4-12.4 NUCLEATED RED BLOOD CELLS (BEAKER) (test 0 /100 WBC 0-0 ryjb=754) NEUTROPHILS RELATIVE PERCENT (BEAKER) (test 79 % avma=829) LYMPHOCYTES RELATIVE PERCENT (BEAKER) (test 13 % zapq=711) MONOCYTES RELATIVE PERCENT (BEAKER) (test 7 % pmgm=326) EOSINOPHILS RELATIVE PERCENT (BEAKER) (test 1 % onde=355) BASOPHILS RELATIVE PERCENT (BEAKER) (test 0 % ihpk=449) NEUTROPHILS ABSOLUTE COUNT (BEAKER) (test 11.32 K/ L 1.78-5.38 qpbm=484) LYMPHOCYTES ABSOLUTE COUNT (BEAKER) (test 1.84 K/ L 1.32-3.57 rvcs=017) MONOCYTES ABSOLUTE COUNT (BEAKER) (test 0.99 K/ L 0.30-0.82 jhvx=344) EOSINOPHILS ABSOLUTE COUNT (BEAKER) (test 0.08 K/ L 0.04-0.54 dbli=336) BASOPHILS ABSOLUTE COUNT (BEAKER) (test 0.01 K/ L 0.01-0.08 yhsd=385) IMMATURE GRANULOCYTES-RELATIVE PERCENT (BEAKER) 1 % 0-1 (test pktt=9132) RAD, CHEST, 1 VIEW, NON [id number] 13:16:00Reason for exam:->s/p ACBx4 immediate post opFINAL REPORT Chest one view. Clinical history: s/p ACBx4 immediate post op Comparison: January 11, 2017 Discussion: A frontal chest is provided. Cardiomediastinal contours are unchanged. ET is approximately 5 cm above the fer. A feeding tube projects over the level of trachea, repositioning is needed. A right IJ line projects over the proximal SVC. There is a left-sided chest tube, and a mediastinal drain. A rounded opacity in the right upper lung is again seen. There mynor small left-sided apical pneumothorax. There is mild nonspecific interstitial prominence. No significant effusion. Status post median sternotomy. Signed: Fiona Walker Verified Date/Time: 01/19/2017 13:16:37 Reading Location: [facility] C0[facility] [place] Consult Reading Room 01: 16 PMSODIUM NA-STAT [id number] 13:14:00 Test Item Value Reference Range Comments SODIUM (BEAKER) (test ewzk=775) 136 meq/L 135-148 OXYGEN SATURATION, [id number] 13:14:00 Test Item Value Reference Range Comments O2 SATURATION (MEASURED) (BEAKER) (test etaz=4696) 90.4 % CALCIUM, [id number] 13:14:00 Test Item Value Reference Range Comments CALCIUM IONIZED (BEAKER) (test oaov=904) 1.17 mmol/L 1.12-1.27 PH, BLOOD (BEAKER) (test zeuf=9287) 7.32 BLOOD GAS, [id number] 13:14:00 Test Item Value Reference Range Comments PH ARTERIAL (BEAKER) (test mymq=199) 7.33 7.35-7.45 PCO2 ARTERIAL (BEAKER) (test hhii=252) 48 mmHg 35-45 PO2 ARTERIAL (BEAKER) (test ewkr=956) 191 mmHg 80-90 O2 SATURATION ARTERIAL (BEAKER) (test vkcx=007) 99.2 % 96.0-97.0 HCO3 ARTERIAL (BEAKER) (test liok=170) 25 mmol/L 21-29 BASE EXCESS ARTERIAL (BEAKER) (test xrrr=017) -1.6 mmol/L -2.0-3.0 PATIENT TEMPERATURE (BEAKER) (test cajp=8387) 36.1 C FIO2 (BEAKER) (test pcoo=4137) 60.0 % BLOOD GAS, [id number] 12:20:00 Test Item Value Reference Range Comments PH ARTERIAL (BEAKER) (test mtqu=549) 7.28 7.35-7.45 PCO2 ARTERIAL (BEAKER) (test gbvb=579) 55 mmHg 35-45 PO2 ARTERIAL (BEAKER) (test kcca=344) 421 mmHg 80-90 O2 SATURATION ARTERIAL (BEAKER) (test syxg=642) 99.8 % 96.0-97.0 HCO3 ARTERIAL (BEAKER) (test jddt=593) 25 mmol/L 21-29 BASE EXCESS ARTERIAL (BEAKER) (test ekiz=264) -1.9 mmol/L -2.0-3.0 PATIENT TEMPERATURE (BEAKER) (test kloq=3635) 36.4 C FIO2 (BEAKER) (test simg=9095) 100.0 % GLUCOSE-STAT [id number] 12:20:00 Test Item Value Reference Range Comments GLUCOSE RANDOM (BEAKER) (test mokl=336) 142 mg/dL 70-110 HGB/HCT (H&H) - STAT [id number] 12:20:00 Test Item Value Reference Range Comments HEMOGLOBIN (BEAKER) (test lira=864) 9.2 g/dL 13.0-16.8 HEMATOCRIT (BEAKER) (test txkw=609) 27.0 % 40.0-50.0 CALCIUM, [id number] 12:20:00 Test Item Value Reference Range Comments CALCIUM IONIZED (BEAKER) (test pxgp=411) 1.03 mmol/L 1.12-1.27 PH, BLOOD (BEAKER) (test sxji=7396) 7.27 SODIUM NA-STAT [id number] 12:18:00 Test Item Value Reference Range Comments SODIUM (BEAKER) (test iuin=842) 137 meq/L 135-148 POTASSIUM-STAT [id number] 12:18:00 Test Item Value Reference Range Comments POTASSIUM (BEAKER) (test mrgj=791) 4.7 meq/L 3.6-5.5 THROMBOELASTOGRAPH (TEG)[id number] 11:10:00 Test Item Value Reference Range Comments TEG ACTIVATED CLOTTING TIME (BEAKER) (test 6.8 minutes 4.0-7.0 ebox=3123) TEG FIBRINOGEN ACTIVITY (BEAKER) (test 68.8 degrees 61.0-73.0 jiag=1263) TEG PLT. AGGREGATION (BEAKER) (test dldt=1553) 46.6 MM 55.0-65.0 TGH ACTIVATED CLOTTING TIME (BEAKER) (test 6.2 minutes 4.0-7.0 igrw=3680) TGH FIBRINOGEN ACTIVITY (BEAKER) (test 68.6 degrees 61.0-73.0 qvup=3083) TGH PLT. AGGREGATION (BEAKER) (test jild=5914) 58.4 MM 55.0-65.0 CALCIUM, [id number] 10:55:00 Test Item Value Reference Range Comments CALCIUM IONIZED (BEAKER) (test otay=595) 1.08 mmol/L 1.12-1.27 PH, BLOOD (BEAKER) (test hlcf=4973) 7.23 BLOOD GAS, [id number] 10:55:00 Test Item Value Reference Range Comments PH ARTERIAL (BEAKER) (test lcqv=873) 7.24 7.35-7.45 PCO2 ARTERIAL (BEAKER) (test qezm=497) 59 mmHg 35-45 PO2 ARTERIAL (BEAKER) (test higk=404) 379 mmHg 80-90 O2 SATURATION ARTERIAL (BEAKER) (test fdln=944) 99.7 % 96.0-97.0 HCO3 ARTERIAL (BEAKER) (test bheb=180) 25 mmol/L 21-29 BASE EXCESS ARTERIAL (BEAKER) (test cqji=383) -2.6 mmol/L -2.0-3.0 PATIENT TEMPERATURE (BEAKER) (test syco=8299) 35.9 C FIO2 (BEAKER) (test euch=3305) 100.0 % GLUCOSE-STAT [id number] 10:55:00 Test Item Value Reference Range Comments GLUCOSE RANDOM (BEAKER) (test jgjb=980) 131 mg/dL 70-110 HGB/HCT (H&H) - STAT [id number] 10:55:00 Test Item Value Reference Range Comments HEMOGLOBIN (BEAKER) (test qfld=442) 8.5 g/dL 13.0-16.8 HEMATOCRIT (BEAKER) (test quia=701) 25.0 % 40.0-50.0 SODIUM NA-STAT [id number] 10:54:00 Test Item Value Reference Range Comments SODIUM (BEAKER) (test wvec=232) 135 meq/L 135-148 POTASSIUM-STAT [id number] 10:54:00 Test Item Value Reference Range Comments POTASSIUM (BEAKER) (test fvla=521) 4.2 meq/L 3.6-5.5 [id number] 10:32:00 Test Item Value Reference Range Comments FIBRINOGEN LEVEL (BEAKER) (test vsjq=444) 185 mg/dl 225-434 PROTHROMBIN [id number] 10:31:00 Test Item Value Reference Range Comments PROTIME (BEAKER) (test fbiq=056) 18.0 seconds 11.7-14.7 INR (BEAKER) (test jikc=797) 1.5 <=5.9 RECOMMENDED COUMADIN/WARFARIN INR THERAPY RANGESSTANDARD DOSE: 2.0 - 3.0 Includes: PROPHYLAXIS forvenous thrombosis, systemic embolization; TREATMENT for venous thrombosis and/or pulmonary embolus.HIGH RISK: Target INR is 2.5-3.5 for patients with mechanical heart valves.[id number] 10:31:00 Test Item Value Reference Range Comments PARTIAL THROMBOPLASTIN TIME (BEAKER) (test 33.5 seconds 22.5-36.0 ercb=006) [id number] 10:20:00 Test Item Value Reference Range Comments ACTIVATED CLOTTING TIME 109 sec TESTED AT [address] (BEAKER) (test ttos=773) [place] [address] [id number] 10:20:00 Test Item Value Reference Range Comments ACTIVATED CLOTTING TIME 780 sec TESTED AT [address] (BEAKER) (test mfij=465) [place] [address] [id number] 10:20:00 Test Item Value Reference Range Comments ACTIVATED CLOTTING TIME 483 sec TESTED AT [address] (BEAKER) (test apij=995) [place] [id number] PLATELET [id number] 10:07:00 Test Item Value Reference Range Comments PLATELET COUNT (BEAKER) (test jthr=716) 131 K/CU MM 150-450 CALCIUM, [id number] 10:06:00 Test Item Value Reference Range Comments CALCIUM IONIZED (BEAKER) (test ipzz=027) 1.17 mmol/L 1.12-1.27 PH, BLOOD (BEAKER) (test dyxn=9801) 7.30 BLOOD GAS, [id number] 10:05:00 Test Item Value Reference Range Comments PH ARTERIAL (BEAKER) (test dvqm=107) 7.32 7.35-7.45 PCO2 ARTERIAL (BEAKER) (test ebbl=954) 47 mmHg 35-45 PO2 ARTERIAL (BEAKER) (test dbdt=423) 436 mmHg 80-90 O2 SATURATION ARTERIAL (BEAKER) (test isev=675) 99.8 % 96.0-97.0 HCO3 ARTERIAL (BEAKER) (test gual=501) 24 mmol/L 21-29 BASE EXCESS ARTERIAL (BEAKER) (test qdkh=970) -2.4 mmol/L -2.0-3.0 PATIENT TEMPERATURE (BEAKER) (test grez=7997) 35.8 C FIO2 (BEAKER) (test ndxw=4320) 100.0 % SODIUM NA-STAT [id number] 10:05:00 Test Item Value Reference Range Comments SODIUM (BEAKER) (test kxce=571) 132 meq/L 135-148 HGB/HCT (H&H) - STAT [id number] 10:05:00 Test Item Value Reference Range Comments HEMOGLOBIN (BEAKER) (test zjol=507) 10.1 g/dL 13.0-16.8 HEMATOCRIT (BEAKER) (test qzml=999) 30.0 % 40.0-50.0 GLUCOSE-STAT [id number] 10:04:00 Test Item Value Reference Range Comments GLUCOSE RANDOM (BEAKER) (test hepa=310) 110 mg/dL 70-110 POTASSIUM-STAT [id number] 10:04:00 Test Item Value Reference Range Comments POTASSIUM (BEAKER) (test wkyj=331) 4.2 meq/L 3.6-5.5 CALCIUM, [id number] 09:15:00 Test Item Value Reference Range Comments CALCIUM IONIZED (BEAKER) (test vnxb=821) 0.97 mmol/L 1.12-1.27 PH, BLOOD (BEAKER) (test ksac=9357) 7.35 BLOOD GAS, [id number] 09:14:00 Test Item Value Reference Range Comments PH ARTERIAL (BEAKER) (test qzqp=426) 7.44 7.35-7.45 PCO2 ARTERIAL (BEAKER) (test hsrk=756) 34 mmHg 35-45 PO2 ARTERIAL (BEAKER) (test oaae=253) 390 mmHg 80-90 O2 SATURATION ARTERIAL (BEAKER) (test caoi=288) 99.8 % 96.0-97.0 HCO3 ARTERIAL (BEAKER) (test rgyt=098) 24 mmol/L 21-29 BASE EXCESS ARTERIAL (BEAKER) (test qstq=253) -2.0 mmol/L -2.0-3.0 PATIENT TEMPERATURE (BEAKER) (test qigb=2692) 31.1 C FIO2 (BEAKER) (test fruc=9942) 80.0 % SODIUM NA-STAT [id number] 09:14:00 Test Item Value Reference Range Comments SODIUM (BEAKER) (test hxsw=431) 132 meq/L 135-148 GLUCOSE-STAT [id number] 09:14:00 Test Item Value Reference Range Comments GLUCOSE RANDOM (BEAKER) (test eshl=474) 117 mg/dL 70-110 HGB/HCT (H&H) - STAT [id number] 09:14:00 Test Item Value Reference Range Comments HEMOGLOBIN (BEAKER) (test rkxk=172) 8.7 g/dL 13.0-16.8 HEMATOCRIT (BEAKER) (test kbsn=175) 26.0 % 40.0-50.0 BLOOD GAS, [id number] 09:14:00 Test Item Value Reference Range Comments PH VENOUS (BEAKER) (test moky=521) 7.36 7.32-7.42 PCO2 VENOUS (BEAKER) (test jxbq=527) 42 mmHg 41-51 PO2 VENOUS (BEAKER) (test gswj=438) 41 mmHg 25-40 O2 SATURATION VENOUS (BEAKER) (test lyyp=194) 88.5 % 40.0-70.0 HCO3 VENOUS (BEAKER) (test crtb=597) 25 mmol/L 21-29 BASE EXCESS VENOUS (BEAKER) (test obar=767) -1.7 mmol/L -2.0-3.0 PATIENT TEMPERATURE (BEAKER) (test bouj=6091) 31.1 C FIO2 (BEAKER) (test jvja=2141) 80.0 % POTASSIUM-STAT [id number] 09:12:00 Test Item Value Reference Range Comments POTASSIUM (BEAKER) (test nsqq=985) 4.3 meq/L 3.6-5.5 PLATELET AGGREGATION: FUNCTION [id number] 08:41:00 Test Item Value Reference Range Comments WEAK ADP RESULT(BEAKER) (test 67 % 60-91 ijmi=2009) PLATELET FUNCTION SCREEN 60-100% indicates normal INTERP (BEAKER) (test platelet function nvsn=6722) [id number] (BEAKER) Nando Olmedo MD (electronic (test byie=9092) signature) PLATELET COUNT AGG (BEAKER) 272 K/CU MM 150-450 (test zhau=8425) GLUCOSE-STAT [id number] 08:27:00 Test Item Value Reference Range Comments GLUCOSE RANDOM (BEAKER) (test ihaj=751) 108 mg/dL 70-110 SODIUM NA-STAT [id number] 08:27:00 Test Item Value Reference Range Comments SODIUM (BEAKER) (test qtfs=572) 136 meq/L 135-148 POTASSIUM-STAT [id number] 08:27:00 Test Item Value Reference Range Comments POTASSIUM (BEAKER) (test jihi=389) 3.8 meq/L 3.6-5.5 HGB/HCT (H&H) - STAT [id number] 08:27:00 Test Item Value Reference Range Comments HEMOGLOBIN (BEAKER) (test yigv=497) 13.6 g/dL 13.0-16.8 HEMATOCRIT (BEAKER) (test yzan=693) 40.0 % 40.0-50.0 BLOOD GAS, [id number] 08:27:00 Test Item Value Reference Range Comments PH ARTERIAL (BEAKER) (test mduy=049) 7.38 7.35-7.45 PCO2 ARTERIAL (BEAKER) (test esvj=461) 46 mmHg 35-45 PO2 ARTERIAL (BEAKER) (test hdix=402) 528 mmHg 80-90 O2 SATURATION ARTERIAL (BEAKER) (test obkl=799) 99.9 % 96.0-97.0 HCO3 ARTERIAL (BEAKER) (test yfim=470) 26 mmol/L 21-29 BASE EXCESS ARTERIAL (BEAKER) (test xpzx=274) 0.4 mmol/L -2.0-3.0 PATIENT TEMPERATURE (BEAKER) (test uptl=6161) 37.0 C FIO2 (BEAKER) (test kfuy=6530) 98.0 % HEMOGLOBIN [id number] 12:23:00 Test Item Value Reference Range Comments HEMOGLOBIN A1C (BEAKER) (test yurv=381) 5.5 % 4.3-6.1 RAD, CHEST, 2 [id number] 12:03:00Reason for Exam:->Pre-OpFINAL REPORT Chest x-ray, PA and lateral views Clinical History: Pre- Op Comparison: Correlated with CT dated August 09, 2014 Findings: Cardiomediastinal contours are unremarkable.There is a peripheral opacity in the right [...] Hyperinflation, suggestive of COPD/emphysema. Peripheral opacity in theright upper lung may reflect scarring versus persistent cavitary lesion. Small nodular opacities at the right apex. Suggest CT correlation if clinically appropriate. Signed: Fiona Walker Verified Date/Time: 01/11/2017 12:03:27 Reading Location: [facility] Radiology Reading Room BASI METABOLIC [id number] 11:26:00 Test Item Value Reference Range Comments SODIUM (BEAKER) (test 136 meq/L 136-145 ppxt=723) POTASSIUM (BEAKER) (test 4.5 meq/L 3.5-5.1 vpiv=345) CHLORIDE (BEAKER) (test 102 meq/L 98-107 vgaa=431) CO2 (BEAKER) (test 28 meq/L 22-29 cgby=288) BLOOD UREA NITROGEN 12 mg/dL 7-21 (BEAKER) (test mmxm=316) CREATININE (BEAKER) (test 0.95 mg/dL 0.57-1.25 udcn=392) GLUCOSE RANDOM (BEAKER) 98 mg/dL 70-105 (test zyzf=484) CALCIUM (BEAKER) (test 9.5 mg/dL 8.4-10.2 alch=950) EGFR (BEAKER) (test 80 mL/min/1.73 sq m ESTIMATED GFR IS NOT pzos=4081) ACCURATE CREATININE CLEARANCE IN PREDICTING GLOMERULAR FILTRATION RATE. ESTIMATED GFR IS NOT APPLICABLE FOR DIALYSIS PATIENTS. PROTHROMBIN TIME/[id number] 11:12:00 Test Item Value Reference Range Comments PROTIME (BEAKER) (test czre=390) 13.0 seconds 11.7-14.7 INR (BEAKER) (test uoxy=211) 1.0 <=5.9 RECOMMENDED COUMADIN/WARFARIN INR THERAPY RANGESSTANDARD DOSE: 2.0 - 3.0 Includes: PROPHYLAXIS forvenous thrombosis, systemic embolization; TREATMENT for venous thrombosis and/or pulmonary embolus.HIGH RISK: Target INR is 2.5-3.5 for patients with mechanical heart valves.CBC W/PLT COUNT & AUTO [id number] 11:05:00 Test Item Value Reference Range Comments WHITE BLOOD CELL COUNT (BEAKER) (test wumm=959) 5.5 K/ L 3.5-10.5 RED BLOOD CELL COUNT (BEAKER) (test igmv=033) 4.56 M/ L 4.63-6.08 HEMOGLOBIN (BEAKER) (test ftji=396) 13.8 GM/DL 13.7-17.5 HEMATOCRIT (BEAKER) (test gnko=114) 41.7 % 40.1-51.0 MEAN CORPUSCULAR VOLUME (BEAKER) (test czsq=583) 91.4 fL 79.0-92.2 MEAN CORPUSCULAR HEMOGLOBIN (BEAKER) (test 30.3 pg 25.7-32.2 xfwu=190) MEAN CORPUSCULAR HEMOGLOBIN CONC (BEAKER) (test 33.1 GM/DL 32.3-36.5 exjo=585) RED CELL DISTRIBUTION WIDTH (BEAKER) (test 12.9 % 11.6-14.4 uwek=444) PLATELET COUNT (BEAKER) (test aqrn=372) 279 K/CU MM 150-450 MEAN PLATELET VOLUME (BEAKER) (test gtbu=267) 9.9 fL 9.4-12.4 NUCLEATED RED BLOOD CELLS (BEAKER) (test 0 /100 WBC 0-0 wwfa=788) NEUTROPHILS RELATIVE PERCENT (BEAKER) (test 60 % ufwd=741) LYMPHOCYTES RELATIVE PERCENT (BEAKER) (test 22 % izsj=130) MONOCYTES RELATIVE PERCENT (BEAKER) (test 13 % twly=152) EOSINOPHILS RELATIVE PERCENT (BEAKER) (test 3 % vgqg=252) BASOPHILS RELATIVE PERCENT (BEAKER) (test 2 % ezlc=129) NEUTROPHILS ABSOLUTE COUNT (BEAKER) (test 3.31 K/ L 1.78-5.38 lxkg=800) LYMPHOCYTES ABSOLUTE COUNT (BEAKER) (test 1.22 K/ L 1.32-3.57 ahqx=690) MONOCYTES ABSOLUTE COUNT (BEAKER) (test 0.69 K/ L 0.30-0.82 wqpn=914) EOSINOPHILS ABSOLUTE COUNT (BEAKER) (test 0.17 K/ L 0.04-0.54 qdjz=293) BASOPHILS ABSOLUTE COUNT (BEAKER) (test 0.10 K/ L 0.01-0.08 mwyn=344) IMMATURE GRANULOCYTES-RELATIVE PERCENT (BEAKER) 1 % 0-1 (test zooz=7944)
[2017-08-03] MEDS ORDERED: ACETAMINOPHEN 500 MG TAB ONE (19:17)
[2017-08-03] MEDS ORDERED: NA CHLORIDE 0.9% 1,000 ML ONE (19:17)
[2017-08-03 19:38] LABS: Absolute Lymphocytes (CBC) 0.8 K/uL (0.7-4.9); Absolute Monocytes 0.9 K/uL (0.1-1.3); Basophils % 0.2 % (0-1.3); Eosinophils % 0.2 % (0-4.4); Hematocrit 37.3 % (39.6-49.0); Lymphocytes % 5.9 % (15.3-44.8); MCH 29.2 pg (27.0-35.0); MCV 86.6 fL (80-100); MPV 8.5 fL (7.6-11.3); Monocytes % 6.6 % (3.3-12.3); RBC Red Blood Cell Count 4.31 M/uL (4.33-5.43)
[2017-08-03 19:43] LABS: Protime INR 1.14
[2017-08-03 19:48] LABS: Potassium 3.8 mEq/L (3.6-5.0)
[2017-08-03 19:54] LABS: Albumin 3.8 g/dL (3.2-5.5); Bilirubin Direct 0.1 mg/dL (0-0.2); Bilirubin Total 0.5 mg/dL (0.3-1.2); Protein, Total 7.6 g/dL (6.0-8.3)
--- NOTE | 2017-08-03 20:33 | RAD REPORT ---
EXAM DESCRIPTION: RAD - Chest Single View - 08/03/2017 7:55 pm CLINICAL HISTORY: Cough, dyspnea, altered mental status, possible heat exhaustion COMPARISON: January 2017, July 2014 TECHNIQUE: AP portable chest image was obtained 1922 hours . FINDINGS: Lungs are fibrotic. There is increased interstitial and patchy alveolar opacities in the l ower left lung field not seen on the most recent examination. Finding is concerning for left base pne umonia and needs correlation with any exam or lab findings. Necrotic or cavitary mass in the lateral right upper lung field has not changed from January 2017. This mass has been present and some form b ack to 2014. CABG surgical changes are noted. Heart and vasculature are normal. No measurable pleural effusion and no pneumothorax. No gross bony abnormality seen. No acute aortic findings suspected. IMPRESSION: Chronic interstitial lung disease with suspected left lung base pneumonia. Lateral right apical mass is present not clearly different from prior imaging. No prior CT imaging se en to help with full characterization.
[2017-08-03] MEDS ORDERED: CEFTRIAXONE 1000 MG/VIAL ONE (20:36)
[2017-08-03] MEDS ORDERED: AZITHROMYCIN 500 MG/250 ML BAG ONE (20:37)
[2017-08-03] MEDS ORDERED: NA CHLORIDE 0.9% 100 ML IV ONE (20:37)
--- NOTE | 2017-08-03 20:37 | ER ---
Nurse's Notes [facility] Name: Jerad Minor Age: 67 yrs Sex: Male : 1950 Arrival Date: 08/03/2017 Time: 18:44 Bed 3 Private MD: Kenny Butler Diagnosis: Left Lung Base Pneumonia Presentation: 08/03 18:47 Presenting complaint: Patient states: that he was working outside and felt SOB. c/o sv vomiting. Spouse states that when he got home he was not acting right, stated that he was staggering while walking. c/o fever at home of 102.4. Transition of care: patient was not received from another setting of care. Onset of symptoms was August 03, 2017. Care prior to arrival: None. 18:47 Method Of Arrival: Wheelchair sv 18:47 Acuity: QUINTON 2 sv 19:00 Risk Assessment: Do you want to hurt yourself or someone else? Patient reports no tl2 desire to harm self or others. Initial Sepsis Screen: Does the patient meet any 2 criteria? Temp <36.0*C (96.8*F)) or > 38.3*C (100.4*F). HR > 90 bpm. Yes Does the patient have a suspected source of infection? Yes: Productive cough/pneumonia If YES to both, name of provider notified: Michael Eric MD. Historical: - Allergies: 18:52 No Known Allergies; sv - Home Meds: 22:39 Ecotrin 81 mg Oral [Active]; metoprolol tartrate 25 mg Oral tab .5 tab 2 times per day tl2 [Active]; Lipitor 40 mg Oral tab 1 tab once daily [Active]; sertraline oral oral [Active]; quetiapine oral oral [Active]; - PMHx: 18:52 CA; arterial blockage; Mycobacterium intracellulare infection of the lung; sv - PSHx: 18:52 cardiac stents; Toney hernia; cataract; Skin cancer; CABG; sv - Immunization history:: Adult Immunizations up to date. - Social history:: Smoking status: Patient/guardian denies using tobacco. - Ebola Screening: : No symptoms or risks identified at this time. - Family history:: not pertinent. - Hospitalizations: : No recent hospitalization is reported. Screenin:00 Abuse screen: Denies threats or abuse. Nutritional screening: No deficits noted. tl2 Tuberculosis screening: No symptoms or risk factors identified. Fall Risk None identified. Assessment: 19:30 General: Appears in no apparent distress. comfortable, Behavior is calm, cooperative, tl2 appropriate for age. Pain: Denies pain. Neuro: Level of Consciousness is awake, alert, obeys commands, Oriented to person, place, time, situation. Neuro: Reports weakness. Cardiovascular: Denies chest pain. Respiratory: Airway is patent Respiratory effort is even, unlabored, Respiratory pattern is regular, symmetrical. GI: No signs and/or symptoms were reported involving the gastrointestinal system. : No signs and/or symptoms were reported regarding the genitourinary system. Derm: Skin is pink, warm \T\ dry. 20:33 Reassessment: Patient appears in no apparent distress at this time. Patient and/or tl2 family updated on plan of care and expected duration. Pain level reassessed. Patient is alert, oriented x 3, equal unlabored respirations, skin warm/dry/pink. Patient states feeling better. 21:30 Reassessment: Patient appears in no apparent distress at this time. Patient and/or tl2 family updated on plan of care and expected duration. Pain level reassessed. Patient is alert, oriented x 3, equal unlabored respirations, skin warm/dry/pink. 22:30 Reassessment: Patient appears in no apparent distress at this time. Patient and/or tl2 family updated on plan of care and expected duration. Pain level reassessed. Patient is alert, oriented x 3, equal unlabored respirations, skin warm/dry/pink. Patient states feeling better. Vital Signs: 18:52 BP 126 / 84; Pulse 124; Resp 18; Temp 102.2; Pulse Ox 95% ; Weight 68.95 kg; Height 5 sv ft. 11 in. (180.34 cm); Pain 0/10; 19:30 BP 128 / 84; Pulse 107; Resp 21; Pulse Ox 97% on R/A; tl2 20:32 BP 131 / 82; Pulse 102; Resp 22; Temp 100.9(O); Pulse Ox 96% on R/A; tl2 21:59 BP 107 / 73; Pulse 106; Resp 20; Temp 98.6(O); Pulse Ox 95% on R/A; tl2 22:30 BP 111 / 70; Pulse 101; Resp 18; Pulse Ox 97% on R/A; tl2 18:52 Body Mass Index 21.20 (68.95 kg, 180.34 cm) sv ED Course: 18:44 Patient arrived in ED. mr 18:45 Kenny Butler MD is Private Physician. mr 18:50 Triage completed. sv 19:00 No provider procedures requiring assistance completed. Inserted saline lock: 20 gauge tl2 in right antecubital area, using aseptic technique. Blood collected. placed by TYLER Acosta. 19:00 Patient has correct armband on for positive identification. Placed in gown. Bed in low tl2 position. Call light in reach. Side rails up X2. Adult w/ patient. 19:00 Arm band placed on right wrist. tl2 19:01 Michael Eric MD is Attending Physician. rn 19:03 EKG done, by ED staff, reviewed by Michael Eric MD. dh3 19:30 X-ray completed. Portable x-ray completed in exam room. Patient tolerated procedure mh1 well. 19:31 XRAY CXR (1 view) In Process Unspecified. EDMS 19:56 María Rueda, TYLER is Primary Nurse. tl2 20:36 Santa Maynard MD is Hospitalizing Provider. rn 22:56 Urine Dipstick--Ancillary (enter results) Sent. cc 23:[address] via wheelchair. vm2 23:03 CT completed. Patient tolerated procedure well. Patient moved back from CT. vm2 23:09 Patient admitted, IV remains in place. tl2 Administered Medications: 19:22 Drug: Tylenol 1000 mg Route: PO; tl2 20:42 Follow up: Response: Temperature is decreased tl2 19:22 Drug: NS 0.9% 500 ml Route: IV; Rate: bolus; Site: right antecubital; tl2 23:09 Follow up: IV Status: Completed infusion tl2 20:41 Drug: Rocephin - (cefTRIAXone) 1 grams Route: IVPB; Infused Over: 30 mins; Site: right tl2 antecubital; 21:11 Follow up: IV Status: Completed infusion; IV Intake: 100ml tl2 21:10 Drug: AZITHromycin 500 mg Route: IVPB; Infused Over: 1 hrs; Site: right antecubital; tl2 23:09 Follow up: IV Status: Completed infusion; IV Intake: 250ml tl2 21:10 Drug: Xopenex 1.25 mg Route: Inhalation; tl2 Intake: 21:11 IV: 100ml; Total: 100ml. tl2 23:09 IV: 250ml; Total: 350ml. tl2 Outcome: 20:36 Decision to Hospitalize by Provider. rn 23:07 Admitted to Med/surg accompanied by tech, family with patient, via wheelchair, room tl2 229, with chart, Report called to TYLER Guallpa 23:07 Condition: stable 23:07 Discharge instructions given to patient, family, Instructed on the need for admit. 23:10 Patient left the ED. tl2 Signatures: Dispatcher [employer] EDMS Patricia Bailey RN RN sv Rivera, Maria Deven Hayesha 1 Michael Eric MD MD rn Christian, Chelsea cc Knox, Taylor, RN RN 2 Sania Farmer 2 Yessi Carmona 3 Corrections: (The following items were deleted from the chart) 18:53 18:47 Presenting complaint: Patient states: that he was working outside and felt SOB. sv c/o vomiting. Spouse states that when he got home he was not acting right. c/o fever at home of 102.4. sv
--- NOTE | 2017-08-03 20:37 | EDPHYS ---
Physician Documentation [facility] Name: Jerad Minor Age: 67 yrs Sex: Male : 1950 Arrival Date: 08/03/2017 Time: 18:44 Bed 3 Private MD: Kenny Butler ED Physician Michael Eric HPI: 08/03 19:13 This 67 yrs old Male presents to ER via Wheelchair with complaints of Fever, rn cough. 19:13 The patient reports fever, that was measured at 102.2 degrees Fahrenheit. Onset: The rn symptoms/episode began/occurred today. Modifying factors: there are no obvious modifying factors. Associated signs and symptoms: Pertinent positives: chills, cough, shortness of breath, vomiting. Associated signs and symptoms: Pertinent negatives: abdominal pain. Severity of symptoms: At their worst the symptoms were moderate in the emergency department the symptoms have improved. The patient has experienced similar episodes in the past. Reports fever to 102, began today, + several days of cough, + smoking history but no COPD, + mild sob, productive cough. No urinary symptoms. No abd pain. Vomited once but attributes it to cough induced.. Historical: - Allergies: 18:52 No Known Allergies; sv - Home Meds: 22:39 Ecotrin 81 mg Oral [Active]; metoprolol tartrate 25 mg Oral tab .5 tab 2 times per day tl2 [Active]; Lipitor 40 mg Oral tab 1 tab once daily [Active]; sertraline oral oral [Active]; quetiapine oral oral [Active]; - PMHx: 18:52 NE; arterial blockage; Mycobacterium intracellulare infection of the lung; sv - PSHx: 18:52 cardiac stents; Toney hernia; cataract; Skin cancer; CABG; sv - Immunization history:: Adult Immunizations up to date. - Social history:: Smoking status: Patient/guardian denies using tobacco. - Ebola Screening: : No symptoms or risks identified at this time. - Family history:: not pertinent. - Hospitalizations: : No recent hospitalization is reported. ROS: 19:13 Constitutional: + fever, chills Eyes: Negative for injury, pain, redness, and industrial design intern, ENT: Negative for injury, pain, and discharge, Neck: Negative for injury, pain, and swelling, Cardiovascular: Negative for chest pain, palpitations, and edema, Respiratory: + sob and cough Abdomen/GI: Negative for abdominal pain, diarrhea, and constipation, MS/Extremity: Negative for injury and deformity, Skin: Negative for injury, rash, and discoloration, Neuro: Negative for headache, numbness, tingling, and seizure. Exam: 19:13 Constitutional: This is a well developed, well nourished patient who is awake, alert, rn and in no acute distress. Head/Face: Normocephalic, atraumatic. Eyes: Pupils equal round and reactive to light, extra-ocular motions intact. Lids and lashes normal. Conjunctiva and sclera are non-icteric and not injected. Cornea within normal limits. Periorbital areas with no swelling, redness, or edema. ENT: Nares patent. No nasal discharge, no septal abnormalities noted. Oropharynx with no redness, swelling, or masses, exudates, or evidence of obstruction, uvula midline. Dry MM Neck: Trachea midline, no thyromegaly or masses palpated, and no cervical lymphadenopathy. Supple, full range of motion without nuchal rigidity, or vertebral point tenderness. No Meningismus. Cardiovascular: Regular rate and rhythm with a normal S1 and S2. No gallops, murmurs, or rubs. Normal PMI, no JVD. No pulse deficits. Respiratory: Mild tachypnea, diminished breath sounds bilaterally Abdomen/GI: Soft, non-tender, with normal bowel sounds. No distension or tympany. No guarding or rebound. No evidence of tenderness throughout. MS/ Extremity: Pulses equal, no cyanosis. Neurovascular intact. Full, normal range of motion. LLE slightly greater circumference than RLE (baseline from grafting) Neuro: Awake and alert, GCS 15, oriented to person, place, time, and situation. Cranial nerves II-XII grossly intact. Motor strength 5/5 in all extremities. Sensory grossly intact. Cerebellar exam normal. Vital Signs: 18:52 BP 126 / 84; Pulse 124; Resp 18; Temp 102.2; Pulse Ox 95% ; Weight 68.95 kg; Height 5 sv ft. 11 in. (180.34 cm); Pain 0/10; 19:30 BP 128 / 84; Pulse 107; Resp 21; Pulse Ox 97% on R/A; tl2 20:32 BP 131 / 82; Pulse 102; Resp 22; Temp 100.9(O); Pulse Ox 96% on R/A; tl2 21:59 BP 107 / 73; Pulse 106; Resp 20; Temp 98.6(O); Pulse Ox 95% on R/A; tl2 22:30 BP 111 / 70; Pulse 101; Resp 18; Pulse Ox 97% on R/A; tl2 18:52 Body Mass Index 21.20 (68.95 kg, 180.34 cm) sv MDM: 19:01 Patient medically screened. rn 20:35 Differential diagnosis: viral Infection, bacterial infection, URI, pneumonia. Data rn reviewed: vital signs, nurses notes, lab test result(s), EKG, radiologic studies, plain films, and as a result, I will admit patient. Counseling: I had a detailed discussion with the patient and/or guardian regarding: the historical points, exam findings, and any diagnostic results supporting the discharge/admit diagnosis, lab results, radiology results, the need for further work-up and treatment in the hospital. Response to treatment: the patient's symptoms have mildly improved after treatment, and as a result, I will admit patient. 20:35 Admission orders: after a detailed discussion of the patient's condition and case, the returner orders are written by me. 08/03 19:10 Order name: Blood Culture Adult (2) rn 08/03 19:10 Order name: BMP; Complete Time: 20:25 08/03 19:10 Order name: BNP; Complete Time: 20:25 08/03 19:10 Order name: CBC with Diff rn 08/03 19:10 Order name: Hepatic Function; Complete Time: 20:25 08/03 19:10 Order name: Lipase; Complete Time: 20:25 08/03 19:10 Order name: PT-INR; Complete Time: 20:25 08/03 19:10 Order name: Ptt, Activated; Complete Time: 20:25 08/03 19:10 Order name: Troponin (emerg Dept Use Only); Complete Time: 20:25 08/03 19:10 Order name: Procalcitonin; Complete Time: 20:32 08/03 19:10 Order name: Urine Culture 08/03 20:31 Order name: Sputum Culture 08/03 21:10 Order name: Urine Dipstick--Ancillary (enter results) eb 08/03 21:15 Order name: Urine Dipstick-Ancillary EDMS 08/03 19:10 Order name: XRAY CXR (1 view); Complete Time: 20:34 rn 08/03 19:10 Order name: EKG; Complete Time: 19:10 rn 08/03 19:10 Order name: Cardiac monitoring; Complete Time: 19:13 rn 08/03 19:10 Order name: EKG - Nurse/Tech; Complete Time: 19:13 rn 08/03 19:10 Order name: IV Saline Lock; Complete Time: 19:13 rn 08/03 19:10 Order name: Labs collected and sent; Complete Time: 19:14 rn 08/03 19:10 Order name: O2 Per Protocol; Complete Time: 19:14 rn 08/03 19:10 Order name: O2 Sat Monitoring; Complete Time: 19:14 rn 08/03 19:10 Order name: Urine Dipstick-Ancillary (obtain specimen); Complete Time: 20:42 rn 08/03 21:33 Order name: CBC Smear Scan EDMS Administered Medications: 19:22 Drug: Tylenol 1000 mg Route: PO; tl2 20:42 Follow up: Response: Temperature is decreased tl2 19:22 Drug: NS 0.9% 500 ml Route: IV; Rate: bolus; Site: right antecubital; tl2 23:09 Follow up: IV Status: Completed infusion tl2 20:41 Drug: Rocephin - (cefTRIAXone) 1 grams Route: IVPB; Infused Over: 30 mins; Site: right tl2 antecubital; 21:11 Follow up: IV Status: Completed infusion; IV Intake: 100ml tl2 21:10 Drug: AZITHromycin 500 mg Route: IVPB; Infused Over: 1 hrs; Site: right antecubital; tl2 23:09 Follow up: IV Status: Completed infusion; IV Intake: 250ml tl2 21:10 Drug: Xopenex 1.25 mg Route: Inhalation; tl2 Disposition: 08/03/17 20:36 Hospitalization ordered by Santa Maynard for Inpatient Admission. Preliminary diagnosis is Left Lung Base Pneumonia. - Bed requested for Telemetry/MedSurg (Inpatient). - Status is Inpatient Admission. tl2 - Condition is Stable. - Problem is new. - Symptoms have improved. UTI on Admission? No Signatures: Dispatcher [employer] EDMO Patricia Bailey, RN RN sv Michael Eric MD MD rn Knox, Taylor, RN RN tl2 Carley Leroy Corrections: (The following items were deleted from the chart) 20:44 20:36 Hospitalization Ordered by Santa Maynard MD for Inpatient Admission. Preliminary eb diagnosis is Left Lung Base Pneumonia. Bed requested for Telemetry/MedSurg (Inpatient). Status is Inpatient Admission. Condition is Stable. Problem is new. Symptoms have improved. UTI on Admission? No. rn 20:45 20:44 08/03/2017 20:36 Hospitalization Ordered by Santa Maynard MD for Inpatient eb Admission. Preliminary diagnosis is Left Lung Base Pneumonia. Bed requested for Telemetry/MedSurg (Inpatient). Status is Inpatient Admission. Condition is Stable. Problem is new. Symptoms have improved. UTI on Admission? No. eb 23:10 20:45 08/03/2017 20:36 Hospitalization Ordered by Santa Maynard MD for Inpatient tl2 Admission. Preliminary diagnosis is Left Lung Base Pneumonia. Bed requested for Telemetry/MedSurg (Inpatient). Status is Inpatient Admission. Condition is Stable. Problem is new. Symptoms have improved. UTI on Admission? No. eb
[2017-08-03] MEDS ORDERED: LEVALBUTEROL 1.25 MG/3 ML NEB ONE (20:59)
[2017-08-03 21:15] LABS: Urine Blood TRACE (NEG); Urine Glucose NEGATIVE (NEG); Urine Protein 1+ (NEG); Urine Specific Gravity 1.015 (1.005-1.030)
[2017-08-03 21:33] LABS: Blood Morphology Comment NOT SEEN (NOT SEEN); Platelet Estimate ADEQ; Urine White Blood Cell Casts OK
--- NOTE | 2017-08-03 21:42 | P.HP ---
Certification for Inpatient Patient admitted to: Inpatient With expected LOS: >2 Midnights Practitioner: I am a practitioner with admitting privileges, knowledge of patient current condition, hospital course, and medical plan of care. Services: Services provided to patient in accordance with Admission requirements found in Title 42 Section 412.3 of the Code of Federal Regulations Patient History Date of Service: 08/03/17 Reason for admission: Pneuonia History of Present Illness: Mr Minor is a 67 years old male with history of CAD s/p CABG, Mycobacterium intracellulare infection of the lung, treated at [facility] for a period of 2 years ([id number]), former smoker, who start about 1 month ago with productive cough and SOB. His PCP gave him a course of antibiotics, and he is still taking azithromycin. Since this morning the patient has been with more SOB and had fever of 102.2 at home. His secretions are greenish/yellowish, no blood on it. He has had some night sweats lately. He did not lose weight according to his statement. In ER the patient is dyspneic, febrile 102.2F, CXR shows left base infiltrate consistent with pneumonia, lateral right apical mass previously seen without changes. Lab work shows leukocytosis, with normal procalcitonin. Allergies No Known Allergies Allergy (Unverified 01/06/17 09:19) - Past Medical/Surgical History -: CAD -: Mycobacterium intracellulare infection of the lung -: CABG - Family History Family History: Reviewed- Non-Contributory - Social History Smoking Status: Former smoker Alcohol use: No CD- Drugs: No Place of Residence: Home Review of Systems 10-point ROS is otherwise unremarkable Physical Examination - Physical Exam General: Alert, In no apparent distress HEENT: Atraumatic, PERRLA, Mucous membr. moist/pink, EOMI, Sclerae nonicteric Neck: Supple, 2+ carotid pulse no bruit, No LAD, Without JVD or thyroid abnormality Respiratory: Clear to auscultation bilaterally, Normal air movement Cardiovascular: Regular rate/rhythm, Normal S1 S2 Gastrointestinal: Normal bowel sounds, No tenderness Musculoskeletal: No tenderness Integumentary: No rashes Neurological: Normal speech, Normal strength at 5/5 x4 extr, Normal tone, Normal affect Lymphatics: No axilla or inguinal lymphadenopathy - Studies Laboratory Data (last 24 hrs) 08/03/17 19:07: PT 13.5 H, INR 1.14, APTT 27.3 08/03/17 19:07: WBC 13.8 H, Hgb 12.6 L, Hct 37.3 L, Plt Count 314 08/03/17 19:07: B-Natriuretic Peptide 33 08/03/17 19:07: Sodium 132 L, Potassium 3.8, BUN 16, Creatinine 1.20, Glucose 129 H, Total Bilirubin 0.5, AST 44 H, ALT 36, Alkaline Phosphatase 78, Lipase 24 Assessment and Plan - Problems (Diagnosis) (1) Pneumonia Current Visit: Yes Status: Acute Qualifiers: Pneumonia type: due to unspecified organism Laterality: left Lung location: lower lobe of lung Qualified Code(s): J18.1 - Lobar pneumonia, unspecified organism (2) CAD (coronary artery disease) Current Visit: Yes Status: Acute Qualifiers: Coronary Disease-Associated Artery/Lesion type: bypass graft, other Associated angina: without angina Qualified Code(s): I25.810 - Atherosclerosis of coronary artery bypass graft(s) without angina pectoris - Plan Will admit the patient due to left base pneumonia. Will order empiric Levaquin, IV fluids, sputum culture, Acid-bacilli sputum culture, porcelain finish sprayer consult, CT chest, records from [facility] of previous admission in 2015. - Advance Directives Does patient have a Living Will: No Does patient have a Durable POA for Healthcare: No - Code Status/Comfort Care Code Status Assessed: Yes Code Status: Full Code
[2017-08-03] MEDS ORDERED: Levofloxacin 750mg IV 750 MG/150 ML BAG IV SCH (22:37)
[2017-08-03] MEDS ORDERED: IPRATROPIUM BROM 0.5MG/2.5ML NEB PRN (22:37)
[2017-08-03] MEDS ORDERED: ALBUTEROL 2.5 MG/3 ML NEB SOL NEB PRN (22:37)
[2017-08-03] MEDS ORDERED: ONDANSETRON 4 MG/2 ML VIAL IV PRN (22:37)
[2017-08-03 23:18] VITALS: O2SAT 98
[2017-08-03 23:57] VITALS: BMI 21.2
[2017-08-04] MEDS: NA CHLORIDE 0.9% 1,000 ML IV SCH ×2 (00:08→08:37)
[2017-08-04] MEDS: ACETAMINOPHEN 500 MG TAB PO PRN ×2 (01:50→11:42)
[2017-08-04 05:38] LABS: Absolute Lymphocytes (CBC) 1.5 K/uL (0.7-4.9); Absolute Monocytes 1.5 K/uL (0.1-1.3); Absolute Neutrophil 14.2 K/uL (1.8-8.0); Basophils % 0.2 % (0-1.3); Eosinophils % 0.1 % (0-4.4); Hematocrit 35.6 % (39.6-49.0); Lymphocytes % 8.9 % (15.3-44.8); MCH 29.5 pg (27.0-35.0); MCV 88.5 fL (80-100); MPV 8.5 fL (7.6-11.3); Monocytes % 8.6 % (3.3-12.3); RBC Red Blood Cell Count 4.02 M/uL (4.33-5.43)
[2017-08-04 05:54] LABS: Magnesium 1.5 mg/dL (1.8-2.5); Potassium 3.7 mEq/L (3.6-5.0)
[2017-08-04] MEDS ORDERED: POTASSIUM 25 MEQ EFFERV TAB PO ONE (06:47)
[2017-08-04] MEDS ORDERED: MAGNESIUM SULFATE 1 gm IVPB 1 GM/100 ML BAG IV ONE (06:48)
--- NOTE | 2017-08-04 07:44 | EKG ---
Test Date: 2017-08-03 Test Time: 19:03:47 Screen Room Operator: ANN MARIE MEASUREMENT RESULTS: Intervals: Rate: 118 CT: 152 QRSD: 82 QT: 310 QTc: 434 [place]: P: 77 CT: 152 QRS: 63 T: 78 INTERPRETIVE STATEMENTS: Sinus tachycardia Possible Left atrial enlargement Borderline ECG Compared to ECG 11/21/2011 12:19:16 Sinus rhythm no longer present Electronically Signed On 08-04-17 07:43:06 CDT by Nicolas Mcdonald
--- NOTE | 2017-08-04 08:39 | P.CNS ---
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 outside in intense heat with little confused is a mention of fever past 2 weeks he has been having some cough congestion denies any hemoptysis and was admitted to the hospital CT scan is very suggestive of recurrence of his atypical mycobacterium infection denies any shortness of breath no other symptoms Allergies No Known Allergies Allergy (Unverified 01/06/17 09:19) Home Medications: Aspirin [Ecotrin 81 MG] 81 mg PO DAILY 08/04/17 Atorvastatin Calcium [Lipitor] 40 mg PO BEDTIME 08/04/17 Metoprolol Succinate 12.5 mg PO BID 08/04/17 Quetiapine [Seroquel*] 25 mg PO PRN 08/04/17 - Past Medical/Surgical History Diabetic: No -: CAD -: Mycobacterium intracellulare infection of the lung -: Squamous cell CA -: CABG -: cataract sx [id number] -: Bilateral Hernia -: Cardiac Stent - Family History Father Medical History: Heart disease, Cancer Notes: abdominal aneurysm Mother Medical History: Hypertension, Other (see notes) Notes: Dementia,Arthritis - Social History Alcohol use: Yes CD- Drugs: No Caffeine use: Yes Place of Residence: Home Review of Systems 10-point ROS is otherwise unremarkable General: Weakness Respiratory: Cough, Shortness of Breath Physical Examination Temp Pulse Resp BP Pulse Ox 97.4 F 96 H 18 109/69 96 08/04/17 04:00 08/04/17 04:00 08/04/17 04:00 08/04/17 04:00 08/04/17 04:00 General: Alert, Oriented x3 HEENT: Atraumatic Neck: Supple Respiratory: Clear to auscultation bilaterally Cardiovascular: No edema, Regular rate/rhythm, Normal S1 S2 Gastrointestinal: Normal bowel sounds, Soft and benign Laboratory Data (last 24 hrs) 08/03/17 19:07: PT 13.5 H, INR 1.14, APTT 27.3 08/03/17 19:07: WBC 13.8 H, Hgb 12.6 L, Hct 37.3 L, Plt Count 314 08/03/17 19:07: B-Natriuretic Peptide 33 08/03/17 19:07: Sodium 132 L, Potassium 3.8, BUN 16, Creatinine 1.20, Glucose 129 H, Total Bilirubin 0.5, AST 44 H, ALT 36, Alkaline Phosphatase 78, Lipase 24 - Problems (1) Atypical mycobacterium infection Current Visit: Yes Status: Acute Plan: Patient is 67 years of age admitted with cough congestion slight fever CT scan is very suggestive of his recurrence of his atypical mycobacterium infection would tree-in-bud changes in the middle lobes also has a slight cyst in the right upper lobe 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
[2017-08-04] MEDS ORDERED: CEFUROXIME 250 MG TAB PO SCH (09:00)
[2017-08-04] MEDS ORDERED: ENOXAPARIN 40 MG/0.4 ML SQ SCH (09:00)
--- NOTE | 2017-08-04 09:14 | RAD REPORT ---
EXAM DESCRIPTION: CT - Thorax Wo Con - 08/03/2017 11:03 pm CLINICAL HISTORY: sob COMPARISON: August 03, 2017 chest x-ray January 2017 chest x-ray TECHNIQUE: Computed axial tomography of the chest was obtained. Contrast was not requested. All CT scans are performed using dose optimization technique as appropriate and may include automated exposure control or mA/KV adjustment according to patient size. FINDINGS: The evaluation of mediastinum, crispin and vessels is limited secondary to lack of IV contras t administration. A 29 millimeter right upper lobe cavitary lesion is mildly enlarged from January 2017. Right middle lobe and lingular bronchiectasis is present. Mild right lower lobe bronchiectasis is not ed. Patchy lingular and left lower lobe opacities are noted. Mild tree-in-bud opacities are present w ithin the lungs bilaterally. . No mediastinal or hilar lymphadenopathy is seen. A pleural effusion is not present. 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
--- NOTE | 2017-08-04 09:49 | P.PN ---
Subjective Date of Service: 08/04/17 Primary Care Provider: Dr. Butler Chief Complaint: Pneumonia Subjective: Improving Physical Examination - Vital Signs Temperature: 97.4 F Blood Pressure: 109/69 Pulse: 96 Respirations: 18 Pulse Ox (%): 96 - Physical Exam General: Alert, In no apparent distress, Oriented x3, Cooperative HEENT: Atraumatic Neck: Supple Respiratory: Clear to auscultation bilaterally, Normal air movement Cardiovascular: Normal pulses, Regular rate/rhythm Gastrointestinal: Normal bowel sounds, Soft and benign, Non-distended, No tenderness, No masses, No rebound, No guarding Musculoskeletal: No erythema, No tenderness, No warmth Integumentary: No tenderness/swelling, No erythema, No warmth, No cyanosis Neurological: Normal speech, Normal strength at 5/5 x4 extr, Normal tone, Normal affect - Studies Laboratory Data (last 24 hrs) 08/03/17 19:07: PT 13.5 H, INR 1.14, APTT 27.3 08/03/17 19:07: WBC 13.8 H, Hgb 12.6 L, Hct 37.3 L, Plt Count 314 08/03/17 19:07: B-Natriuretic Peptide 33 08/03/17 19:07: Sodium 132 L, Potassium 3.8, BUN 16, Creatinine 1.20, Glucose 129 H, Total Bilirubin 0.5, AST 44 H, ALT 36, Alkaline Phosphatase 78, Lipase 24 Medications List Reviewed: Yes Assessment & Plan - Problems (Diagnosis) (1) Atypical mycobacterium infection Current Visit: Yes Status: Acute Plan: CT scan reviewed. CT scan shows 29 mm right upper lobe cavitary lesion that is mildly enlarged since January 2017. Right middle lobe and lingular bronchiectasis is present. Mild right lower lobe bronchiectasis noted. Patchy lingular and left lower lobe opacities noted. 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 Patient will need to provide sputum culture x2 for AFB. Will continue to hydrate. Antibiotics adjusted by pulmonology. Anticipate discharge tomorrow after 2 cultures for AFB had been provided. Patient will need to continue with Ceftin and follow up with pulmonology at discharge. (2) CAD (coronary artery disease) Onset Date: 08/04/17 Current Visit: Yes Status: Chronic Plan: Will continue with his medication Qualifiers: Coronary Disease-Associated Artery/Lesion type: bypass graft, other Associated angina: without angina Qualified Code(s): I25.810 - Atherosclerosis of coronary artery bypass graft(s) without angina pectoris (3) Pneumonia Onset Date: 08/04/17 Current Visit: Yes Status: Acute Plan: Continue as above. Patient with recurrent and YUDITH infection Qualifiers: Laterality: bilateral Lung location: upper lobe of lung (4) Bronchiectasis Current Visit: Yes Status: Acute Plan: Continue as above Qualifiers: Bronchiectasis type: with acute exacerbation Qualified Code(s): J47.1 - Bronchiectasis with (acute) exacerbation (5) Renal insufficiency Current Visit: Yes Status: Acute Plan: Patient with mild dehydration. Will continue with IV fluids. Will monitor and adjust electrolytes appropriately. (6) Hyponatremia Current Visit: Yes Status: Acute Plan: Likely from falling depletion. Will continue with IV fluids. Electrolytes to be addressed. (7) Elevated liver function tests Current Visit: Yes Status: Acute Plan: Will send for hepatitis panell Discharge Plan: Home Plan to discharge in: 24 Hours Time Spent Managing Pts Care (In Minutes): 55
[2017-08-04] MEDS ORDERED: BENZONATATE 100 MG CAP PO PRN (09:52)
[2017-08-04] MEDS ORDERED: NA CHLORIDE 0.9% 1,000 ML IV SCH (10:00)
--- NOTE | 2017-08-04 10:51 | P.DS ---
Admission Date: 08/03/17 Discharge Date: 08/04/17 Primary Care Provider: Dr. Butler Disposition: ROUTINE DISCHARGE Discharge Condition: GOOD Reason for Admission: Pneumonia Consultations: Pulmonology-Dr. Muñoz Procedures: CT scan: COMPARISON: August 03, 2017 chest x-ray January 2017 chest x-ray TECHNIQUE: Computed axial tomography of the chest was obtained. Contrast was not requested. All CT scans are performed using dose optimization technique as appropriate and may include automated exposure control or mA/KV djustment according to patient size. FINDINGS: The evaluation of mediastinum, crispin and vessels is limited secondary to lack of IV contrast administration. A 29 millimeter right upper lobe cavitary lesion is mildly enlarged from January 2017. Right middle lobe and lingular bronchiectasis is present. Mild right lower lobe bronchiectasis is noted. Patchy lingular and left lower lobe opacities are noted. Mild tree-in-bud opacities are present within the lungs bilaterally. . No mediastinal or hilar lymphadenopathy is seen. A pleural effusion is not present. A pericardial effusion is not seen IMPRESSION: These findings may indicate mycobacterium avium intracellular - Problems (1) Atypical mycobacterium infection Current Visit: Yes Status: Acute (2) CAD (coronary artery disease) Onset Date: 08/04/17 Current Visit: Yes Status: Chronic Qualifiers: Coronary Disease-Associated Artery/Lesion type: bypass graft, other Associated angina: without angina Qualified Code(s): I25.810 - Atherosclerosis of coronary artery bypass graft(s) without angina pectoris (3) Pneumonia Onset Date: 08/04/17 Current Visit: Yes Status: Acute Qualifiers: Laterality: bilateral Lung location: upper lobe of lung (4) Bronchiectasis Current Visit: Yes Status: Acute Qualifiers: Bronchiectasis type: with acute exacerbation Qualified Code(s): J47.1 - Bronchiectasis with (acute) exacerbation (5) Renal insufficiency Current Visit: Yes Status: Acute (6) Hyponatremia Current Visit: Yes Status: Acute (7) Elevated liver function tests Current Visit: Yes Status: Acute (8) Hypertension Current Visit: Yes Status: Chronic Qualifiers: Hypertension type: essential hypertension Qualified Code(s): I10 - Essential (primary) hypertension (9) Hyperlipidemia Current Visit: Yes Status: Chronic Qualifiers: Hyperlipidemia type: unspecified Qualified Code(s): E78.5 - Hyperlipidemia , unspecified (10) Depression Current Visit: Yes Status: Chronic Qualifiers: Depression Type: unspecified Qualified Code(s): F32.9 - Major depressive disorder, single episode, unspecified Brief History of Present Illness: 67-year-old male presented emergency room with cough, congestion. He also reported a fever. Patient had seen his PCP recently and started on Zithromax. Patient with history of mycobacterium avium intracellular. Patient was treated for mycobacterium 4 years ago at [facility]. He received 14 months of treatment. Patient came to the ER for evaluation. Patient was admitted for observation. Hospital Course: During the course of his stay patient receive IV fluids and IV antibiotic therapy. 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 Case discussed at length with pulmonology. CT scan showed 29 mm right upper lobe cavitary lesion, mildly enlarged from January 2017. Right middle lobe and lingular bronchiectasis was also present. Mild right lower lobe bronchiectasis was noted. Patchy lingular and left lower lobe opacities were noted as well. Case was seen and evaluated by pulmonology. At discharge she is without any significant shortness of breath. He has not required any oxygen. White count slightly elevated. At discharge pulmonology recommends to continue with Ceftin 500 mg 1 pill twice daily for 10 days. Patient will need a follow up with pulmonology in 1 week to follow up this hospitalization. Prior to discharge induced sputum cultures will be obtained for AFB. This will need to be followed up by pulmonology. Pulmonology recommends not to use Zithromax or quinolones in the future as this may activate mycobacterium in the future. Recommendation is to recheck chest x-ray in 2-4 weeks to monitor his progress. Patient has hypertension. Patient will continue with his medication metoprolol 12.5 mg 1 pill twice daily. Recommendation is to maintain blood pressures less 150/80. Further adjustment can be done by his PCP. He is to hold his blood pressure medication if blood pressure systolic less than 120. Patient has hyperlipidemia. Patient will continue with his medication-Lipitor Patient with history of depression. Patient will continue with Zoloft and Seroquel as directed. Patient had mild elevation in liver function test. Hepatitis panel obtained. This will need be followed up by his PCP. Recommendation is to recheck lab-CBC and BMP in 1 week to monitor his progress. Recommendation to recheck chest x-ray in 2-4 weeks to monitor his progress. Vital Signs/Physical Exam: Temp Pulse Resp BP Pulse Ox 97.4 F 96 H 18 109/69 96 08/04/17 09:51 08/04/17 09:51 08/04/17 09:51 08/04/17 09:51 08/04/17 09:51 General: Alert, In no apparent distress, Oriented x3, Cooperative HEENT: Atraumatic Neck: Supple Respiratory: Clear to auscultation bilaterally, Normal air movement Cardiovascular: Normal pulses, Regular rate/rhythm Gastrointestinal: Normal bowel sounds, Soft and benign, Non-distended, No ascites, No tenderness, No masses, No rebound, No guarding Musculoskeletal: No erythema, No tenderness, No warmth Integumentary: No tenderness/swelling, No erythema, No warmth, No cyanosis Neurological: Normal speech, Normal strength at 5/5 x4 extr, Normal tone, Normal affect Laboratory Data at Discharge: WBC 17.3 K/uL (4.3-10.9) H D 08/04/17 04:56 Hgb 11.9 g/dL (13.6-17.9) L 08/04/17 04:56 Hct 35.6 % (39.6-49.0) L 08/04/17 04:56 Plt Count 333 K/uL (152-406) 08/04/17 04:56 PT 13.5 SECONDS (9.5-12.5) H 08/03/17 19:07 INR 1.14 08/03/17 19:07 APTT 27.3 SECONDS (24.3-36.9) 08/03/17 19:07 Sodium 136 mEq/L (135-145) 08/04/17 04:56 Potassium 3.7 mEq/L (3.6-5.0) 08/04/17 04:56 BUN 11 mg/dL (6-20) 08/04/17 04:56 Creatinine 1.12 mg/dL (0.61-1.24) 08/04/17 04:56 Glucose 132 mg/dL (65-120) H 08/04/17 04:56 Magnesium Cancelled 08/04/17 05:00 Total Bilirubin 0.5 mg/dL (0.3-1.2) 08/03/17 19:07 AST 44 IU/L (10-42) H 08/03/17 19:07 ALT 36 IU/L (10-60) 08/03/17 19:07 Alkaline Phosphatase 78 IU/L (42-121) 08/03/17 19:07 B-Natriuretic Peptide 33 pg/ml (<=100) 08/03/17 19:07 Lipase 24 U/L (22-51) 08/03/17 19:07 Home Medications: Albuterol Sulfate [Proair Hfa] 8.5 gm IH TID PRN #1 hfa.aer.ad 08/04/17 Aspirin [Ecotrin 81 MG] 81 mg PO DAILY 08/04/17 Atorvastatin Calcium [Lipitor] 40 mg PO BEDTIME 08/04/17 Benzonatate [Tessalon Perle*] 200 mg PO TID PRN #30 cap 08/04/17 Cefuroxime [Ceftin*] 500 mg PO BID #40 tab 08/04/17 Cholecalciferol (Vitamin D3) [Vitamin D 1000 Iu Tab*] 1,000 unit PO DAILY Folic Acid 1 mg PO DAILY 08/04/17 Metoprolol Succinate 12.5 mg PO BID 08/04/17 Quetiapine [Seroquel*] 50 mg PO BEDTIME 08/04/17 Sertraline [Zoloft*] 50 mg PO DAILY 08/04/17 New Medications: Albuterol Sulfate [Proair Hfa] 8.5 gm IH TID PRN #1 hfa.aer.ad PRN Reason: Shortness Of Breath Benzonatate [Tessalon Perle*] 200 mg PO TID PRN #30 cap PRN Reason: Cough Cefuroxime [Ceftin*] 500 mg PO BID #40 tab Patient Discharge Instructions: 1. Patient will need to follow up with his PCP in 1 week to follow up this hospitalization. 2. Patient presented with cough, fever. 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 Patient evaluated by pulmonology. At discharge patient will continue with Ceftin 500 mg 1 pill twice daily for 10 days. Tessalon Perles 200 mg 1 pill 3 times a day as needed for cough will be provided. Pro air 2 puffs 3 times a day as needed for shortness of breath will also be provided. Recommendation is for the patient to follow up with pulmonology in 1 week to follow up this hospitalization. Pulmonology will go over AFB sputum culture results. Education on mycobacterium will be provided. Patient encouraged to increase fluid intake. Patient may take Tylenol or ibuprofen as needed for fever. Recommendation to recheck chest x-ray in 2-4 weeks to monitor his progress. 3. Patient has hypertension. Patient will continue with his medication- metoprolol 12.5 mg 1 pill twice daily. Recommendation is to maintain blood pressures less 150/80. Further adjustment can be done by his PCP. Patient may hold his blood pressure medication if systolic blood pressure less than 120. 4. Patient has hyperlipidemia. Patient continue with Lipitor. 5. Patient with history of depression. Patient will continue with Zoloft answer recalls directed. 6. Patient had mild elevation in liver function tests. Hepatitis panel is pending at discharge. This can be followed up by his PCP. 7. Recommendation is to recheck CBC and BMP in 1 week Diet: AHA Activity: Fall precautions Time spent managing pt's care (in minutes): 55
[2017-08-04 15:09] VITALS: BP 134/76; TEMP 97.8
[2017-08-04] MEDS ORDERED: METOPROLOL XL 25 MG TAB PO SCH ×2 (21:00)
[2017-08-04] MEDS ORDERED: QUETIAPINE 25 MG TAB PO SCH (21:00)
[2017-08-04] MEDS ORDERED: ATORVASTATIN 40 MG TAB PO SCH (21:00)
[2017-08-05] MEDS ORDERED: PANTOPRAZOLE 40MG TABLET PO SCH (06:30)
[2017-08-05] MEDS ORDERED: FOLIC ACID 1 MG TABLET PO SCH (09:00)
[2017-08-05] MEDS ORDERED: VITAMIN D 1000 UNIT TAB PO SCH (09:00)
[2017-08-05] MEDS ORDERED: ASPIRIN EC 81 MG TAB PO SCH (09:00)
[2017-08-05] MEDS ORDERED: SERTRALINE HCL 50 MG TAB PO SCH (09:00)
[2017-08-06 12:45] LABS: HBsAG Nonreactive (Nonreactive); Hepatitis A IgM Antibody Nonreactive
== END 2017-08-04 13:47 | disposition home or self-care (01) ==
LOC: ER 18:41 → ERHOLD 20:37 → INTOOBSV 20:37 → 2ND 22:33
PROVIDERS: ADMIT Internal Medicine; ATTEND Internal Medicine
DX: A31.0 Pulmonary mycobacterial infection (principal); J47.9 Bronchiectasis, uncomplicated; I10 Essential (primary) hypertension; E78.5 Hyperlipidemia, unspecified; F32.9 Major depressive disorder, single episode, unspecified; R79.89 Other specified abnormal findings of blood chemistry; I25.10 Atherosclerotic heart disease of native coronary artery without angina pectoris; Z95.1 Presence of aortocoronary bypass graft; Z95.5 Presence of coronary angioplasty implant and graft
CPT/HCPCS: 36415; 71045; 71250; 80048; 80074; 80076; 81003; 83690; 83735; 83880; 84145; 84484; 85025; 85610; 85730; 87015; 87040; 87070; 87086; 87088; 87116; 87184; 87205; 87206; 93005; 94760; 96361; 96365; 96366; 96368; 99285; G0378; J0456; J1650; J3475; J7030

== ENCOUNTER 2019-11-08 18:41 | Emergency (ER) | payer OTHER ==
--- OUTSIDE RECORDS SUMMARY | 2019-11-08 18:43 | XMS REPORT | Clinical Summary ---
:1950 Author Organization [facility] Address [address] [place] [address] Care Team Providers Name Role Phone Kris Butler Primary Care Provider Margarito Duggan Unavailable Allergies No Known Allergies Medications Medication Sig Dispensed Refills Start Date End Date Status aspirin 81 MG chewable Take 325 mg by 0 Active tablet mouth daily . cholecalciferol, Take 2,000 Units 0 Active vitamin D3, 1,000 unit by mouth daily . capsule sertraline (ZOLOFT) 50 Take 50 mg by 0 Active MG tabletIndications: mouth daily. Coronary artery disease involving [place] heart without angina pectoris, unspecified vessel or lesion type QUEtiapine (SEROQUEL) Take 50 mg by 0 Active 25 MG mouth nightly. tabletIndications: Coronary artery disease involving [place] heart without angina pectoris, unspecified vessel or lesion type Active Problems Problem Noted Date Acute postoperative pain 01/21/2017 Essential hypertension 01/21/2017 Coronary artery disease involving [place] heart without angina pectoris, 01/19/2017 unspecified vessel or lesion type S/P CABG x 4 01/19/2017 Acute blood loss anemia 01/19/2017 Acute pulmonary insufficiency following thoracic surge ry 01/19/2017 Other shock 01/19/2017 RI (myocardial infarction) 03/08/1997 Overview: Stents x3 2005 x1 Coronary artery disease Carotid artery occlusion High cholesterol Family History Medical History Relation Name Comments [...] Assigned at Date Recorded Not on file Job Start Date Occupation Industry Not on file Not on file Not on file Travel History Travel Start Travel End No recent travel history available. Last Filed Vital Signs Not on file Plan of Treatment Health Maintenance Due Date Last Done Comments COLON CANCER SCREENING COLONOSCOPY 1950 PNEUMOCOCCAL 65+ LOW/MEDIUM RISK (1 of 2 - PCV13) 05/17/2016 INFLUENZA VACCINE (#1) 2019 Results Not on fileafter 11/07/2018 Insurance Payer Benefit Plan / Subscriber ID Type Phone Address Group MEDICARE MEDICARE PART A xxxxxxxxxx Medicare BLUE CROSS/BLUE BCBS OS xxxxxxxxxxxxxxx PPO [phone] [address] [place] [place] [address] Advance Directives Patient has advance care planning documents, and code status on file. For more information, please contact:[id number] [place], [place] [phone] Code Status Date Activated Date Inactivated Comments Full Code 01/19/2017 5:41 AM 01/26/2017 3:16 PM This code status was determined by: Patient
--- OUTSIDE RECORDS SUMMARY | 2019-11-08 18:44 | XMS REPORT | Continuity of Care Document ---
:1950 Author Organization [facility] t Address [address] [place] [address] Care Team Providers Name Role Phone Kris Butler Primary Care Physician JOSE LEIVA Attending Clinician Unavailable JOSE LEIVA Admitting Clinician Unavailable Problems Condition Condition Condition Status Onset Resolution Last Treating Co mments Source Name Details Category Date Date Treatment Clinician Date Acute Acute Disease Active 2016-[address] [facility] postoperat postoperat 1-16 Johanna kes - thaddeus pain thaddeus pain 00:00: Medica [place] Essential Essential Disease Active 2016-[address] [facility] hypertensi hypertensi 1-16 Johanna kes - on on 00:00: Medical [place] S/P CABG x S/P CABG x Disease Active 2016-[address] 4 4 1-14 [facility] [place] Acute Acute Disease Active 2016-[address] [facility] blood loss blood loss 1-14 Johanna kes - anemia anemia 00:00: Medical 00 [place] Acute Acute Disease Active 2016-[address] [facility] [address] pulmonary pulmonary 1-14 [facility] - insufficie insufficie 00:00: Me dical ncy ncy 00 Center following following thoracic thoracic surgery surgery Other Other Disease Active 2016-[address] [facility] shock shock 1-14 [facility] [place] Disease Active Overview: [facility] (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 Family History Family Member Diagnosis Comments Start Date Stop Date Source Natural father Heart disease [facility] Natural mother Hypertension [facility] Social History Social Habit Start Date Stop Date Quantity Comments Source History of tobacco Current smoker I [facility] - use [facility] Sex Assigned At [facility] Cigarettes smoked 2017-01-26 2017-01-26 [facility] - current (pack per 00:00:00 00:00:00 [facility] Center day) - Reported Cigarette 2017-01-26 2017-01-26 [facility] - pack-years 00:00:00 00:00:00 [facility] Alcohol Comment 2014-08-08 2014-08-08 occ [facility] - 00:00:00 00:00:00 [facility] Smoking Status Start Date Stop Date Source Former smoker 2017-01-26 00:00:00 2017-01-26 00:00:00 [facility] Medications Ordered Filled Start Stop Current Ordering Indication Dosage Frequency Signature Comments Components Source Medication Medication Date Date Medication? Clinician (SIG) Name Name aspirin 81 2016-03 Yes 325mg QD Take [address] MG chewable 1-06 mg by [facility] - tablet 07:28: mouth Medical 05 daily . [place] cholecalcif 2016-03 Yes 2000U QD Take 2,[address] [facility] [address] melania, 1-06 Units by [facility] - vitamin D3, 07:28: mouth Medic al 1,000 unit 05 daily . [place] capsule sertraline 2016-03 Yes Coronary 50mg QD Take [address] [facility] (ZOLOFT) 50 1-06 artery by mouth Johanna kes - MG tablet 07:28: disease daily. Med ical 05 involving [facility] [place] heart without angina pectoris, unspecified vessel or lesion type QUEtiapine 2016-03 Yes Coronary 50mg QD Take [address] (SEROQUEL) 1-06 artery by mouth Bertin es - 25 MG 07:28: disease nightly. Medic al tablet 05 involving [place] heart without angina pectoris, unspecified vessel or lesion type Procedures This patient has no known procedures. Plan of Care Planned Activity Planned Date Details Comments Source Future Scheduled 2019-11-07 INFLUENZA VACCINE (#1) [facility] - Test 00:00:00 [code = INFLUENZA Medical Ce nter VACCINE (#1)] Future Scheduled 2016-05-17 PNEUMOCOCCAL [address] - Test 00:00:00 LOW/MEDIUM RISK (1 of [facility] 2 - PCV13) [code = PNEUMOCOCCAL 65+ LOW/MEDIUM RISK (1 of 2 - PCV13)] Future Scheduled [address] [facility] Bertin [facility] - Test 00:00:00 malignant neoplasm of [facility] colon (procedure) [code = 556708231] Results Test Description Test Time Test Comments Results Result Comments Source MAGNESIUM 2017-01-26 07:36:00 Test Item Value Reference Range Interpretation Comme nts MAGNESIUM (BEAKER) (test code = 627) 1.7 mg/dL 1.6-2.6 BASIC METABOLIC [id number] 07:36:00 Test Item Value Reference Range Interpretation Comments SODIUM (BEAKER) 135 meq/L 136-145 L (test code = 381) POTASSIUM (BEAKER) 4.2 meq/L 3.5-5.1 (test code = 379) CHLORIDE (BEAKER) 101 meq/L 98-107 (test code = 382) CO2 (BEAKER) (test 29 meq/L 22-29 code = 355) BLOOD UREA NITROGEN 15 mg/dL 7-21 (BEAKER) (test code = 354) CREATININE (BEAKER) 0.89 mg/dL 0.57-1.25 (test code = 358) GLUCOSE RANDOM 91 mg/dL 70-105 (BEAKER) (test code = 652) CALCIUM (BEAKER) 8.8 mg/dL 8.4-10.2 (test code = 697) EGFR (BEAKER) (test 86 mL/min/1.73 ESTIMA PRO GFR IS code = 1092) sq m NOT ACCURATE CREATININE CLEARANCE IN PREDICTING GLOMERULAR FILTRATION RATE . ESTIMATED GFR I S NOT APPLICABLE FOR DIALYSIS PATIEN TS. CBC (HEMOGRAM ONLY)2017-01-26 07:09:00 Test Item Value Reference Range Interpretation Comments WHITE BLOOD CELL COUNT (BEAKER) 11.2 K/ L 3.5-10.5 H (test code = 775) RED BLOOD CELL COUNT (BEAKER) 2.92 M/ L 4.63-6.08 L (test code = 761) HEMOGLOBIN (BEAKER) (test code = 8.7 GM/DL 13.7-17.5 L 410) HEMATOCRIT (BEAKER) (test code = 26.4 % 40.1-51.0 L 411) MEAN CORPUSCULAR VOLUME (BEAKER) 90.4 fL 79.0-92.2 (test code = 753) MEAN CORPUSCULAR HEMOGLOBIN 29.8 pg 25.7-32.2 (BEAKER) (test code = 751) MEAN CORPUSCULAR HEMOGLOBIN CONC 33.0 GM/DL 32.3-36.5 (BEAKER) (test code = 752) RED CELL DISTRIBUTION WIDTH 13.4 % 11.6-14.4 (BEAKER) (test code = 412) PLATELET COUNT (BEAKER) (test 461 K/CU MM 150-450 H code = 756) MEAN PLATELET VOLUME (BEAKER) 9.5 fL 9.4-12.4 (test code = 754) NUCLEATED RED BLOOD CELLS 0 /100 WBC 0-0 (BEAKER) (test code = 413) [id number] 11:04:00 Test Item Value Reference Range Interpretation Comments FERRITIN (BEAKER) (test code = 361) 412 ng/mL 5-275 H IRON, TIBC, % SAT. (WITHOUT FERRITIN)2017-01-25 10:47:00 Test Item Value Reference Range Interpretation Comments IRON (BEAKER) (test code = 547) 22 ug/dL 40-160 L TOTAL IRON BINDING CAPACITY 248 ug/dL 250-450 L (BEAKER) (test code = 769) IRON % SATURATION (2) (BEAKER) 9 % 20-55 L (test code = 2590) RAD, CHEST, 1 VIEW, NON [id number] 07:36:00Reason for exam:->ptxShould this be performed at [...] effusions. Signed: Meme Houston MDReport Verified Date/Time: 01/25/2017 07:36:17 Reading Location: [facility] C013 Neuro Reading Room RAD, CHEST, 1 VIEW, NON [id number] 08:28:00Reason for exam:->ptxShould this be performed at [...] MDReport Verified Date/Time: 01/24/2017 08:28:50 Reading Location: [facility] C013 Neuro Reading Room BASIC METABOLIC [id number] 06:24:00 Test Item Value Reference Range Interpretation Comments SODIUM (BEAKER) 135 meq/L 136-145 L (test code = 381) POTASSIUM (BEAKER) 4.0 meq/L 3.5-5.1 (test code = 379) CHLORIDE (BEAKER) 104 meq/L 98-107 (test code = 382) CO2 (BEAKER) (test 26 meq/L 22-29 code = 355) BLOOD UREA NITROGEN 15 mg/dL 7-21 (BEAKER) (test code = 354) CREATININE (BEAKER) 0.86 mg/dL 0.57-1.25 (test code = 358) GLUCOSE RANDOM 97 mg/dL 70-105 (BEAKER) (test code = 652) CALCIUM (BEAKER) 8.4 mg/dL 8.4-10.2 (test code = 697) EGFR (BEAKER) (test 89 mL/min/1.73 ESTIMA PRO GFR IS code = 1092) sq m NOT ACCURATE CREATININE CLEARANCE IN PREDICTING GLOMERULAR FILTRATION RATE . ESTIMATED GFR I S NOT APPLICABLE FOR DIALYSIS PATIEN TS. CBC W/PLT COUNT & AUTO [id number] 05:30:00 Test Item Value Reference Range Interpretation Comments WHITE BLOOD CELL COUNT (BEAKER) 11.2 K/ L 3.5-10.5 H (test code = 775) RED BLOOD CELL COUNT (BEAKER) 2.67 M/ L 4.63-6.08 L (test code = 761) HEMOGLOBIN (BEAKER) (test code = 7.9 GM/DL 13.7-17.5 L 410) HEMATOCRIT (BEAKER) (test code = 23.9 % 40.1-51.0 L 411) MEAN CORPUSCULAR VOLUME (BEAKER) 89.5 fL 79.0-92.2 (test code = 753) MEAN CORPUSCULAR HEMOGLOBIN 29.6 pg 25.7-32.2 (BEAKER) (test code = 751) MEAN CORPUSCULAR HEMOGLOBIN CONC 33.1 GM/DL 32.3-36.5 (BEAKER) (test code = 752) RED CELL DISTRIBUTION WIDTH 13.4 % 11.6-14.4 (BEAKER) (test code = 412) PLATELET COUNT (BEAKER) (test 340 K/CU MM 150-450 code = 756) MEAN PLATELET VOLUME (BEAKER) 9.6 fL 9.4-12.4 (test code = 754) NUCLEATED RED BLOOD CELLS 0 /100 WBC 0-0 (BEAKER) (test code = 413) NEUTROPHILS RELATIVE PERCENT 64 % (BEAKER) (test code = 429) LYMPHOCYTES RELATIVE PERCENT 13 % (BEAKER) (test code = 430) MONOCYTES RELATIVE PERCENT 12 % (BEAKER) (test code = 431) EOSINOPHILS RELATIVE PERCENT 7 % (BEAKER) (test code = 432) BASOPHILS RELATIVE PERCENT 1 % (BEAKER) (test code = 437) NEUTROPHILS ABSOLUTE COUNT 7.13 K/ L 1.78-5.38 H (BEAKER) (test code = 670) LYMPHOCYTES ABSOLUTE COUNT 1.50 K/ L 1.32-3.57 (BEAKER) (test code = 414) MONOCYTES ABSOLUTE COUNT (BEAKER) 1.31 K/ L 0.30-0.82 H (test code = 415) EOSINOPHILS ABSOLUTE COUNT 0.79 K/ L 0.04-0.54 H (BEAKER) (test code = 416) BASOPHILS ABSOLUTE COUNT (BEAKER) 0.08 K/ L 0.01-0.08 (test code = 417) IMMATURE GRANULOCYTES-RELATIVE 3 % 0-1 H PERCENT (BEAKER) (test code = 2801) CBC W/PLT COUNT & AUTO [id number] 06:40:00 Test Item Value Reference Range Interpretation Comments WHITE BLOOD CELL COUNT (BEAKER) 10.7 K/ L 3.5-10.5 H (test code = 775) RED BLOOD CELL COUNT (BEAKER) 3.05 M/ L 4.63-6.08 L (test code = 761) HEMOGLOBIN (BEAKER) (test code = 8.9 GM/DL 13.7-17.5 L 410) HEMATOCRIT (BEAKER) (test code = 27.4 % 40.1-51.0 L 411) MEAN CORPUSCULAR VOLUME (BEAKER) 89.8 fL 79.0-92.2 (test code = 753) MEAN CORPUSCULAR HEMOGLOBIN 29.2 pg 25.7-32.2 (BEAKER) (test code = 751) MEAN CORPUSCULAR HEMOGLOBIN CONC 32.5 GM/DL 32.3-36.5 (BEAKER) (test code = 752) RED CELL DISTRIBUTION WIDTH 13.5 % 11.6-14.4 (BEAKER) (test code = 412) PLATELET COUNT (BEAKER) (test 295 K/CU MM 150-450 code = 756) MEAN PLATELET VOLUME (BEAKER) 10.1 fL 9.4-12.4 (test code = 754) NUCLEATED RED BLOOD CELLS 0 /100 WBC 0-0 (BEAKER) (test code = 413) NEUTROPHILS RELATIVE PERCENT 66 % (BEAKER) (test code = 429) LYMPHOCYTES RELATIVE PERCENT 12 % (BEAKER) (test code = 430) MONOCYTES RELATIVE PERCENT 11 % (BEAKER) (test code = 431) EOSINOPHILS RELATIVE PERCENT 10 % (BEAKER) (test code = 432) BASOPHILS RELATIVE PERCENT 1 % (BEAKER) (test code = 437) NEUTROPHILS ABSOLUTE COUNT 7.02 K/ L 1.78-5.38 H (BEAKER) (test code = 670) LYMPHOCYTES ABSOLUTE COUNT 1.29 K/ L 1.32-3.57 L (BEAKER) (test code = 414) MONOCYTES ABSOLUTE COUNT (BEAKER) 1.19 K/ L 0.30-0.82 H (test code = 415) EOSINOPHILS ABSOLUTE COUNT 1.04 K/ L 0.04-0.54 H (BEAKER) (test code = 416) BASOPHILS ABSOLUTE COUNT (BEAKER) 0.09 K/ L 0.01-0.08 H (test code = 417) IMMATURE GRANULOCYTES-RELATIVE 1 % 0-1 PERCENT (BEAKER) (test code = 2801) [id number] 06:27:00 Test Item Value Reference Range Interpretation Comments MAGNESIUM (BEAKER) 2.0 mg/dL 1.6-2.6 Specimen slightly (test code = 627) hemolyzed BASIC METABOLIC [id number] 06:27:00 Test Item Value Reference Range Interpretation Comments SODIUM (BEAKER) 133 meq/L 136-145 L (test code = 381) POTASSIUM (BEAKER) 4.3 meq/L 3.5-5.1 Specimen slightly (test code = 379) hemolyzed CHLORIDE (BEAKER) 102 meq/L 98-107 (test code = 382) CO2 (BEAKER) (test 27 meq/L 22-29 code = 355) BLOOD UREA NITROGEN 14 mg/dL 7-21 (BEAKER) (test code = 354) CREATININE (BEAKER) 0.84 mg/dL 0.57-1.25 Specimen slightly (test code = 358) hemolyzed GLUCOSE RANDOM 101 mg/dL 70-105 (BEAKER) (test code = 652) CALCIUM (BEAKER) 8.2 mg/dL 8.4-10.2 L (test code = 697) EGFR (BEAKER) (test 92 mL/min/1.73 ESTIMA PRO GFR IS code = 1092) sq m NOT ACCURATE CREATININE CLEARANCE IN PREDICTING GLOMERULAR FILTRATION RATE . ESTIMATED GFR I S NOT APPLICABLE FOR DIALYSIS PATIEN TS. RAD, CHEST, 1 VIEW, NON [id number] 05:59:00Reason for exam:->s/p CABG, Chest tube in placeReason for exam:->chest tube found to be clampedShould this be performed at the bedside?->YesFINAL REPORT RAD, CHEST, 1 VIEW, NON DEPT INDICATION: s/p [...] mycobacterial infection.No acute osseous abnormality. Signed: Joe Realeport Verified Date/Time: 01/23/2017 05:59:29 Reading Location: [facility] [id number] Ortho Consult Reading Room Electronically signed by: JOE REAL MD on 1 03/25/2016 05:59 AMCALCIUM, [id number] 05:34:00 Test Item Value Reference Range Interpretation Comments CALCIUM IONIZED (BEAKER) (test 1.14 mmol/L 1.12-1.27 code = 698) PH, BLOOD (BEAKER) (test code = 7.36 1810) RAD, CHEST, 1 VIEW, NON [id number] 15:23:00Reason for exam:->ptxShould this be performed at [...] effusion. Signed: Fiona Walker Verified Date/Time: 01/22/2017 15:23:39 Reading Location: [facility] C013 Consult Reading Room RAD, CHEST, 1 VIEW, NON [id number] 07:57:00Reason for exam:->s/p ACBx4, chest tubes FINAL REPORT Chest one view. Clinical history: s/p ACBx4, chest tubes Comparison: 01/21/2017 Discussion: A frontal chest is provided. Cardiomediastinal contours are unchanged.Lines and tubes are in stable position. No new consolidation. Small left apical pneumothorax is grossly unchanged. Probable small bilateral effusions. Signed: Fiona Walker Verified Date/Time: 01/22/2017 07:57:14 Reading Location: [facility] Radiology Reading Room [id number] 07:13:00 Test Item Value Reference Range Interpretation Comments MAGNESIUM (BEAKER) (test code = 1.5 mg/dL 1.6-2.6 L 627) BASIC METABOLIC [id number] 07:13:00 Test Item Value Reference Range Interpretation Comments SODIUM (BEAKER) 132 meq/L 136-145 L (test code = 381) POTASSIUM (BEAKER) 3.7 meq/L 3.5-5.1 (test code = 379) CHLORIDE (BEAKER) 101 meq/L 98-107 (test code = 382) CO2 (BEAKER) (test 24 meq/L 22-29 code = 355) BLOOD UREA NITROGEN 13 mg/dL 7-21 (BEAKER) (test code = 354) CREATININE (BEAKER) 0.81 mg/dL 0.57-1.25 (test code = 358) GLUCOSE RANDOM 97 mg/dL 70-105 (BEAKER) (test code = 652) CALCIUM (BEAKER) 8.4 mg/dL 8.4-10.2 (test code = 697) EGFR (BEAKER) (test 96 mL/min/1.73 ESTIMA PRO GFR IS code = 1092) sq m NOT ACCURATE CREATININE CLEARANCE IN PREDICTING GLOMERULAR FILTRATION RATE . ESTIMATED GFR I S NOT APPLICABLE FOR DIALYSIS PATIEN TS. CBC W/PLT COUNT & AUTO [id number] 07:02:00 Test Item Value Reference Range Interpretation Comments WHITE BLOOD CELL COUNT (BEAKER) 12.3 K/ L 3.5-10.5 H (test code = 775) RED BLOOD CELL COUNT (BEAKER) 2.85 M/ L 4.63-6.08 L (test code = 761) HEMOGLOBIN (BEAKER) (test code = 8.4 GM/DL 13.7-17.5 L 410) HEMATOCRIT (BEAKER) (test code = 25.5 % 40.1-51.0 L 411) MEAN CORPUSCULAR VOLUME (BEAKER) 89.5 fL 79.0-92.2 (test code = 753) MEAN CORPUSCULAR HEMOGLOBIN 29.5 pg 25.7-32.2 (BEAKER) (test code = 751) MEAN CORPUSCULAR HEMOGLOBIN CONC 32.9 GM/DL 32.3-36.5 (BEAKER) (test code = 752) RED CELL DISTRIBUTION WIDTH 13.5 % 11.6-14.4 (BEAKER) (test code = 412) PLATELET COUNT (BEAKER) (test 196 K/CU MM 150-450 code = 756) MEAN PLATELET VOLUME (BEAKER) 10.6 fL 9.4-12.4 (test code = 754) NUCLEATED RED BLOOD CELLS 0 /100 WBC 0-0 (BEAKER) (test code = 413) NEUTROPHILS RELATIVE PERCENT 74 % (BEAKER) (test code = 429) LYMPHOCYTES RELATIVE PERCENT 10 % (BEAKER) (test code = 430) MONOCYTES RELATIVE PERCENT 10 % (BEAKER) (test code = 431) EOSINOPHILS RELATIVE PERCENT 6 % (BEAKER) (test code = 432) BASOPHILS RELATIVE PERCENT 0 % (BEAKER) (test code = 437) NEUTROPHILS ABSOLUTE COUNT 9.12 K/ L 1.78-5.38 H (BEAKER) (test code = 670) LYMPHOCYTES ABSOLUTE COUNT 1.18 K/ L 1.32-3.57 L (BEAKER) (test code = 414) MONOCYTES ABSOLUTE COUNT (BEAKER) 1.17 K/ L 0.30-0.82 H (test code = 415) EOSINOPHILS ABSOLUTE COUNT 0.70 K/ L 0.04-0.54 H (BEAKER) (test code = 416) BASOPHILS ABSOLUTE COUNT (BEAKER) 0.04 K/ L 0.01-0.08 (test code = 417) IMMATURE GRANULOCYTES-RELATIVE 1 % 0-1 PERCENT (BEAKER) (test code = 2801) CALCIUM, [id number] 06:41:00 Test Item Value Reference Range Interpretation Comments CALCIUM IONIZED (BEAKER) (test 1.04 mmol/L 1.12-1.27 L code = 698) PH, BLOOD (BEAKER) (test code = 7.41 1810) RAD, CHEST, 1 VIEW, NON [id number] 07:38:00Reason for exam:->s/p ACBx4, chest tubesFINAL REPORT Chest one view AP 01/21/2017 7:37 AM CLINICAL INDICATION: s/p ACBx4, chest tubes [...] MDReport Verified Date/Time: 01/21/2017 07:38:09 Reading Location: [address] Neuro Reading Room CALCIUM, [id number] 07:21:00 Test Item Value Reference Range Interpretation Comments CALCIUM IONIZED (BEAKER) (test 1.08 mmol/L 1.12-1.27 L code = 698) PH, BLOOD (BEAKER) (test code = 7.44 1810) [id number] 07:00:00 Test Item Value Reference Range Interpretation Comments MAGNESIUM (BEAKER) (test code = 1.7 mg/dL 1.6-2.6 627) BASIC METABOLIC [id number] 07:00:00 Test Item Value Reference Range Interpretation Comments SODIUM (BEAKER) 130 meq/L 136-145 L (test code = 381) POTASSIUM (BEAKER) 3.9 meq/L 3.5-5.1 (test code = 379) CHLORIDE (BEAKER) 98 meq/L 98-107 (test code = 382) CO2 (BEAKER) (test 25 meq/L 22-29 code = 355) BLOOD UREA NITROGEN 10 mg/dL 7-21 (BEAKER) (test code = 354) CREATININE (BEAKER) 0.84 mg/dL 0.57-1.25 (test code = 358) GLUCOSE RANDOM 129 mg/dL 70-105 H (BEAKER) (test code = 652) CALCIUM (BEAKER) 8.6 mg/dL 8.4-10.2 (test code = 697) EGFR (BEAKER) (test 92 mL/min/1.73 ESTIMA PRO GFR IS code = 1092) sq m NOT ACCURATE CREATININE CLEARANCE IN PREDICTING GLOMERULAR FILTRATION RATE . ESTIMATED GFR I S NOT APPLICABLE FOR DIALYSIS PATIEN TS. CBC W/PLT COUNT & AUTO [id number] 06:43:00 Test Item Value Reference Range Interpretation Comments WHITE BLOOD CELL COUNT (BEAKER) 13.0 K/ L 3.5-10.5 H (test code = 775) RED BLOOD CELL COUNT (BEAKER) 2.90 M/ L 4.63-6.08 L (test code = 761) HEMOGLOBIN (BEAKER) (test code = 8.6 GM/DL 13.7-17.5 L 410) HEMATOCRIT (BEAKER) (test code = 25.9 % 40.1-51.0 L 411) MEAN CORPUSCULAR VOLUME (BEAKER) 89.3 fL 79.0-92.2 (test code = 753) MEAN CORPUSCULAR HEMOGLOBIN 29.7 pg 25.7-32.2 (BEAKER) (test code = 751) MEAN CORPUSCULAR HEMOGLOBIN CONC 33.2 GM/DL 32.3-36.5 (BEAKER) (test code = 752) RED CELL DISTRIBUTION WIDTH 14.1 % 11.6-14.4 (BEAKER) (test code = 412) PLATELET COUNT (BEAKER) (test 195 K/CU MM 150-450 code = 756) MEAN PLATELET VOLUME (BEAKER) 10.4 fL 9.4-12.4 (test code = 754) NUCLEATED RED BLOOD CELLS 0 /100 WBC 0-0 (BEAKER) (test code = 413) NEUTROPHILS RELATIVE PERCENT 82 % (BEAKER) (test code = 429) LYMPHOCYTES RELATIVE PERCENT 6 % (BEAKER) (test code = 430) MONOCYTES RELATIVE PERCENT 10 % (BEAKER) (test code = 431) EOSINOPHILS RELATIVE PERCENT 2 % (BEAKER) (test code = 432) BASOPHILS RELATIVE PERCENT 0 % (BEAKER) (test code = 437) NEUTROPHILS ABSOLUTE COUNT 10.62 K/ L 1.78-5.38 H (BEAKER) (test code = 670) LYMPHOCYTES ABSOLUTE COUNT 0.81 K/ L 1.32-3.57 L (BEAKER) (test code = 414) MONOCYTES ABSOLUTE COUNT (BEAKER) 1.23 K/ L 0.30-0.82 H (test code = 415) EOSINOPHILS ABSOLUTE COUNT 0.23 K/ L 0.04-0.54 (BEAKER) (test code = 416) BASOPHILS ABSOLUTE COUNT (BEAKER) 0.01 K/ L 0.01-0.08 (test code = 417) IMMATURE GRANULOCYTES-RELATIVE 1 % 0-1 PERCENT (BEAKER) (test code = 2801) RAD, CHEST, 1 VIEW, NON [id number] 13:36:00Reason for exam:- >pneumothoraxReason for exam:->chest tubes placed to gravityShould this be performed at the bedside?->YesFINAL REPORT Chest one view. Clinical history: pneumothoraxchest tubes placed to gravity Comparison: 01/20/2017 Discussion: A frontal chest is provided. Cardiomediastinal contours are unchanged. Lines and tubes are in stable position. There is a tiny left apical pneumothorax, marginally smaller since the previous study. No new consolidation. Mild bibasilar atelectasis. Unchanged lesion in the right upper lung. Signed: Fiona Walker Verified Date/Time: 01/20/2017 13:36:34 Reading Location: [address] Consult Reading Room RAD, CHEST, 1 VIEW, NON [id number] 07:51:00Reason for exam:->s/p ACBx4, chest tubesFINAL REPORT Chest one view. Clinical history: s/p ACBx4, chest tubes Comparison: 01/19/2017 Discussion: A frontal chest is provided. Cardiomediastinal contours are unchanged.ET and feeding tube have been removed. Other lines and tubes are unchanged. Tiny left apical pneumothorax is stable. There is mild nonspecific interstitial prominence, as before. No large effusion. Signed: Fiona Walker Verified Date/Time: 01/20/2017 07:51:20 Reading Location: [facility], [place], operated by [facility] Reading Room POCT-GLUCOSE [id number] 05:56:00 Test Item Value Reference Range Interpretation Comments POC-GLUCOSE METER 149 mg/dL 70-110 H TESTED AT [facility] 6720 (BEAKER) (test code = [place] 1538) [address] [id number] 04:56:00 Test Item Value Reference Range Interpretation Comments MAGNESIUM (BEAKER) (test code = 2.0 mg/dL 1.6-2.6 627) BASIC METABOLIC [id number] 04:56:00 Test Item Value Reference Range Interpretation Comments SODIUM (BEAKER) 135 meq/L 136-145 L (test code = 381) POTASSIUM (BEAKER) 4.5 meq/L 3.5-5.1 (test code = 379) CHLORIDE (BEAKER) 106 meq/L 98-107 (test code = 382) CO2 (BEAKER) (test 23 meq/L 22-29 code = 355) BLOOD UREA NITROGEN 11 mg/dL 7-21 (BEAKER) (test code = 354) CREATININE (BEAKER) 0.83 mg/dL 0.57-1.25 (test code = 358) GLUCOSE RANDOM 149 mg/dL 70-105 H (BEAKER) (test code = 652) CALCIUM (BEAKER) 8.3 mg/dL 8.4-10.2 L (test code = 697) EGFR (BEAKER) (test 93 mL/min/1.73 ESTIMA PRO GFR IS code = 1092) sq m NOT ACCURATE CREATININE CLEARANCE IN PREDICTING GLOMERULAR FILTRATION RATE . ESTIMATED GFR I S NOT APPLICABLE FOR DIALYSIS PATIEN TS. CBC W/PLT COUNT & AUTO [id number] 04:50:00 Test Item Value Reference Range Interpretation Comments WHITE BLOOD CELL COUNT (BEAKER) 11.7 K/ L 3.5-10.5 H (test code = 775) RED BLOOD CELL COUNT (BEAKER) 3.02 M/ L 4.63-6.08 L (test code = 761) HEMOGLOBIN (BEAKER) (test code = 8.8 GM/DL 13.7-17.5 L 410) HEMATOCRIT (BEAKER) (test code = 26.3 % 40.1-51.0 L 411) MEAN CORPUSCULAR VOLUME (BEAKER) 87.1 fL 79.0-92.2 (test code = 753) MEAN CORPUSCULAR HEMOGLOBIN 29.1 pg 25.7-32.2 (BEAKER) (test code = 751) MEAN CORPUSCULAR HEMOGLOBIN CONC 33.5 GM/DL 32.3-36.5 (BEAKER) (test code = 752) RED CELL DISTRIBUTION WIDTH 14.8 % 11.6-14.4 H (BEAKER) (test code = 412) PLATELET COUNT (BEAKER) (test 217 K/CU MM 150-450 code = 756) MEAN PLATELET VOLUME (BEAKER) 9.9 fL 9.4-12.4 (test code = 754) NUCLEATED RED BLOOD CELLS 0 /100 WBC 0-0 (BEAKER) (test code = 413) NEUTROPHILS RELATIVE PERCENT 87 % (BEAKER) (test code = 429) LYMPHOCYTES RELATIVE PERCENT 5 % (BEAKER) (test code = 430) MONOCYTES RELATIVE PERCENT 8 % (BEAKER) (test code = 431) EOSINOPHILS RELATIVE PERCENT 0 % (BEAKER) (test code = 432) BASOPHILS RELATIVE PERCENT 0 % (BEAKER) (test code = 437) NEUTROPHILS ABSOLUTE COUNT 10.15 K/ L 1.78-5.38 H (BEAKER) (test code = 670) LYMPHOCYTES ABSOLUTE COUNT 0.55 K/ L 1.32-3.57 L (BEAKER) (test code = 414) MONOCYTES ABSOLUTE COUNT (BEAKER) 0.87 K/ L 0.30-0.82 H (test code = 415) EOSINOPHILS ABSOLUTE COUNT 0.00 K/ L 0.04-0.54 L (BEAKER) (test code = 416) BASOPHILS ABSOLUTE COUNT (BEAKER) 0.05 K/ L 0.01-0.08 (test code = 417) IMMATURE GRANULOCYTES-RELATIVE 0 % 0-1 PERCENT (BEAKER) (test code = 2801) CALCIUM, [id number] 04:40:00 Test Item Value Reference Range Interpretation Comments CALCIUM IONIZED (BEAKER) (test 1.11 mmol/L 1.12-1.27 L code = 698) PH, BLOOD (BEAKER) (test code = 7.42 1810) POCT-GLUCOSE [id number] 02:43:00 Test Item Value Reference Range Interpretation Comments POC-GLUCOSE METER 157 mg/dL 70-110 H [facility] AT [facility] (test code = [facility] 1538) [id number] POCT-GLUCOSE [id number] 00:53:00 Test Item Value Reference Range Interpretation Comments POC-GLUCOSE METER 149 mg/dL 70-110 H [facility] (test code = [facility] 1538) [id number] POCT-GLUCOSE [id number] 18:55:00 Test Item Value Reference Range Interpretation Comments POC-GLUCOSE METER 158 mg/dL 70-110 H TESTED AT [facility] [address] (BEAKER) (test code = ESTIVEN Boggs [place] 1538) [address] POCT-GLUCOSE [id number] 18:55:00 Test Item Value Reference Range Interpretation Comments POC-GLUCOSE METER 153 mg/dL 70-110 H TESTED AT [facility] 6720 (BEAKER) (test code = ESTIVEN Boggs [place] 1538) [address] BLOOD GAS, [id number] 17:14:00 Test Item Value Reference Range Interpretation Comments PH ARTERIAL (BEAKER) (test code = 7.38 7.35-7.45 383) PCO2 ARTERIAL (BEAKER) (test code 42 mmHg 35-45 = 384) PO2 ARTERIAL (BEAKER) (test code 187 mmHg 80-90 H = 385) O2 SATURATION ARTERIAL (BEAKER) 99.3 % 96.0-97.0 H (test code = 386) HCO3 ARTERIAL (BEAKER) (test code 25 mmol/L 21-29 = 388) BASE EXCESS ARTERIAL (BEAKER) -0.6 mmol/L -2.0-3.0 (test code = 387) PATIENT TEMPERATURE (BEAKER) 36.7 C (test code = 1818) FIO2 (BEAKER) (test code = 1819) 40.0 % GLUCOSE-STAT [id number] 17:14:00 Test Item Value Reference Range Interpretation Comments GLUCOSE RANDOM (BEAKER) (test code 153 mg/dL 70-110 H = 652) HEMOGLOBIN AND [id number] 16:51:00 Test Item Value Reference Range Interpretation Comments HEMOGLOBIN (BEAKER) (test code = 8.3 GM/DL 13.7-17.5 L 410) HEMATOCRIT (BEAKER) (test code = 25.0 % 40.1-51.0 L 411) CBC W/PLT COUNT & AUTO [id number] 15:46:00 Test Item Value Reference Range Interpretation Comments WHITE BLOOD CELL COUNT (BEAKER) 12.1 K/ L 3.5-10.5 H (test code = 775) RED BLOOD CELL COUNT (BEAKER) 2.78 M/ L 4.63-6.08 L (test code = 761) HEMOGLOBIN (BEAKER) (test code = 8.4 GM/DL 13.7-17.5 L 410) HEMATOCRIT (BEAKER) (test code = 25.1 % 40.1-51.0 L 411) MEAN CORPUSCULAR VOLUME (BEAKER) 90.3 fL 79.0-92.2 (test code = 753) MEAN CORPUSCULAR HEMOGLOBIN 30.2 pg 25.7-32.2 (BEAKER) (test code = 751) MEAN CORPUSCULAR HEMOGLOBIN CONC 33.5 GM/DL 32.3-36.5 (BEAKER) (test code = 752) RED CELL DISTRIBUTION WIDTH 14.3 % 11.6-14.4 (BEAKER) (test code = 412) PLATELET COUNT (BEAKER) (test 197 K/CU MM 150-450 code = 756) MEAN PLATELET VOLUME (BEAKER) 9.9 fL 9.4-12.4 (test code = 754) NUCLEATED RED BLOOD CELLS 0 /100 WBC 0-0 (BEAKER) (test code = 413) NEUTROPHILS RELATIVE PERCENT 87 % (BEAKER) (test code = 429) LYMPHOCYTES RELATIVE PERCENT 5 % (BEAKER) (test code = 430) MONOCYTES RELATIVE PERCENT 7 % (BEAKER) (test code = 431) EOSINOPHILS RELATIVE PERCENT 0 % (BEAKER) (test code = 432) BASOPHILS RELATIVE PERCENT 0 % (BEAKER) (test code = 437) NEUTROPHILS ABSOLUTE COUNT 10.55 K/ L 1.78-5.38 H (BEAKER) (test code = 670) LYMPHOCYTES ABSOLUTE COUNT 0.55 K/ L 1.32-3.57 L (BEAKER) (test code = 414) MONOCYTES ABSOLUTE COUNT (BEAKER) 0.85 K/ L 0.30-0.82 H (test code = 415) EOSINOPHILS ABSOLUTE COUNT 0.02 K/ L 0.04-0.54 L (BEAKER) (test code = 416) BASOPHILS ABSOLUTE COUNT (BEAKER) 0.01 K/ L 0.01-0.08 (test code = 417) IMMATURE GRANULOCYTES-RELATIVE 1 % 0-1 PERCENT (BEAKER) (test code = 2801) THROMBOELASTOGRAPH (TEG)2017-01-19 14:40:00 Test Item Value Reference Range Interpretation Comments TEG ACTIVATED CLOTTING TIME 5.8 minutes 4.0-7.0 (BEAKER) (test code = 1407) TEG FIBRINOGEN ACTIVITY (BEAKER) 71.3 degrees 61.0-73.0 (test code = 1408) TEG PLT. AGGREGATION (BEAKER) 59.8 MM 55.0-65.0 (test code = 1409) TEG FIBRINOLYSIS (BEAKER) (test 0.1 % 0.0-5.0 code = 1410) TGH ACTIVATED CLOTTING TIME 5.4 minutes 4.0-7.0 (BEAKER) (test code = 1411) TGH FIBRINOGEN ACTIVITY (BEAKER) 71.8 degrees 61.0-73.0 (test code = 1412) TGH PLT. AGGREGATION (BEAKER) 64.8 MM 55.0-65.0 (test code = 1413) TGH FIBRINOLYSIS (BEAKER) (test 0.0 % 0.0-5.0 code = 1414) [id number] 13:46:00 Test Item Value Reference Range Interpretation Comments FIBRINOGEN LEVEL (BEAKER) (test 233 mg/dl 225-434 code = 658) [id number] 13:46:00 Test Item Value Reference Range Interpretation Comments PARTIAL THROMBOPLASTIN TIME 34.2 seconds 22.5-36.0 (BEAKER) (test code = 760) PROTHROMBIN [id number] 13:45:00 Test Item Value Reference Range Interpretation Comments PROTIME (BEAKER) (test code = 17.4 seconds 11.7-14.7 H 759) INR (BEAKER) (test code = 370) 1.4 <=5.9 RECOMMENDED COUMADIN/WARFARIN INR THERAPY RANGESSTANDARD DOSE: 2.0 - 3.0 Includes: PROPHYLAXIS forvenous thrombosis, systemic embolization; TREATMENT for venous thrombosis and/or pulmonary embolus.HIGH RISK: Target INR is 2.5-3.5 for patients with mechanical heart valves.LACTIC ACID, ARTERIAL, WHOLE BLOOD 2017-01-19 13:43:00 Test Item Value Reference Range Interpretation Comments LACTATE BLOOD ARTERIAL (2) 1.6 mmol/L 0.5-2.2 (BEAKER) (test code = 2874) Effective 07/10/2015: Units/Reference Range ChangeNew: 0.5-2.2 mmol/L Previous: 5-20 mg/[id number] 13:43:00 Test Item Value Reference Range Interpretation Comments MAGNESIUM (BEAKER) (test code = 1.8 mg/dL 1.6-2.6 627) BASIC METABOLIC [id number] 13:43:00 Test Item Value Reference Range Interpretation Comments SODIUM (BEAKER) 138 meq/L 136-145 (test code = 381) POTASSIUM (BEAKER) 4.4 meq/L 3.5-5.1 (test code = 379) CHLORIDE (BEAKER) 108 meq/L 98-107 H (test code = 382) CO2 (BEAKER) (test 23 meq/L 22-29 code = 355) BLOOD UREA NITROGEN 14 mg/dL 7-21 (BEAKER) (test code = 354) CREATININE (BEAKER) 0.88 mg/dL 0.57-1.25 (test code = 358) GLUCOSE RANDOM 148 mg/dL 70-105 H (BEAKER) (test code = 652) CALCIUM (BEAKER) 8.4 mg/dL 8.4-10.2 (test code = 697) EGFR (BEAKER) (test 87 mL/min/1.73 ESTIMA PRO GFR IS code = 1092) sq m NOT ACCURATE CREATININE CLEARANCE IN PREDICTING GLOMERULAR FILTRATION RATE . ESTIMATED GFR I S NOT APPLICABLE FOR DIALYSIS PATIEN TS. CBC W/PLT COUNT & AUTO [id number] 13:35:00 Test Item Value Reference Range Interpretation Comments WHITE BLOOD CELL COUNT (BEAKER) 14.4 K/ L 3.5-10.5 H (test code = 775) RED BLOOD CELL COUNT (BEAKER) 3.05 M/ L 4.63-6.08 L (test code = 761) HEMOGLOBIN (BEAKER) (test code = 9.2 GM/DL 13.7-17.5 L 410) HEMATOCRIT (BEAKER) (test code = 27.5 % 40.1-51.0 L 411) MEAN CORPUSCULAR VOLUME (BEAKER) 90.2 fL 79.0-92.2 (test code = 753) MEAN CORPUSCULAR HEMOGLOBIN 30.2 pg 25.7-32.2 (BEAKER) (test code = 751) MEAN CORPUSCULAR HEMOGLOBIN CONC 33.5 GM/DL 32.3-36.5 (BEAKER) (test code = 752) RED CELL DISTRIBUTION WIDTH 13.8 % 11.6-14.4 (BEAKER) (test code = 412) PLATELET COUNT (BEAKER) (test 232 K/CU MM 150-450 code = 756) MEAN PLATELET VOLUME (BEAKER) 9.7 fL 9.4-12.4 (test code = 754) NUCLEATED RED BLOOD CELLS 0 /100 WBC 0-0 (BEAKER) (test code = 413) NEUTROPHILS RELATIVE PERCENT 79 % (BEAKER) (test code = 429) LYMPHOCYTES RELATIVE PERCENT 13 % (BEAKER) (test code = 430) MONOCYTES RELATIVE PERCENT 7 % (BEAKER) (test code = 431) EOSINOPHILS RELATIVE PERCENT 1 % (BEAKER) (test code = 432) BASOPHILS RELATIVE PERCENT 0 % (BEAKER) (test code = 437) NEUTROPHILS ABSOLUTE COUNT 11.32 K/ L 1.78-5.38 H (BEAKER) (test code = 670) LYMPHOCYTES ABSOLUTE COUNT 1.84 K/ L 1.32-3.57 (BEAKER) (test code = 414) MONOCYTES ABSOLUTE COUNT (BEAKER) 0.99 K/ L 0.30-0.82 H (test code = 415) EOSINOPHILS ABSOLUTE COUNT 0.08 K/ L 0.04-0.54 (BEAKER) (test code = 416) BASOPHILS ABSOLUTE COUNT (BEAKER) 0.01 K/ L 0.01-0.08 (test code = 417) IMMATURE GRANULOCYTES-RELATIVE 1 % 0-1 PERCENT (BEAKER) (test code = 2801) RAD, CHEST, 1 VIEW, NON [id number] 13:16:00Reason for exam:->s/p ACBx4 immediate post opFINAL [...] significant effusion. Status post median sternotomy. Signed: Denise, Fiona MDReport Verified Date/Time: 01/19/2017 13:16:37 Reading Location: [facility] C0[facility] Consult Reading Room UM NA-STAT [id number] 13:14:00 Test Item Value Reference Range Interpretation Comments SODIUM (BEAKER) (test code = 381) 136 meq/L 135-148 OXYGEN SATURATION, [id number] 13:14:00 Test Item Value Reference Range Interpretation Comments O2 SATURATION (MEASURED) (BEAKER) 90.4 % (test code = 1455) CALCIUM, [id number] 13:14:00 Test Item Value Reference Range Interpretation Comments CALCIUM IONIZED (BEAKER) (test 1.17 mmol/L 1.12-1.27 code = 698) PH, BLOOD (BEAKER) (test code = 7.32 1810) BLOOD GAS, [id number] 13:14:00 Test Item Value Reference Range Interpretation Comments PH ARTERIAL (BEAKER) (test code = 7.33 7.35-7.45 L 383) PCO2 ARTERIAL (BEAKER) (test code 48 mmHg 35-45 H = 384) PO2 ARTERIAL (BEAKER) (test code 191 mmHg 80-90 H = 385) O2 SATURATION ARTERIAL (BEAKER) 99.2 % 96.0-97.0 H (test code = 386) HCO3 ARTERIAL (BEAKER) (test code 25 mmol/L 21-29 = 388) BASE EXCESS ARTERIAL (BEAKER) -1.6 mmol/L -2.0-3.0 (test code = 387) PATIENT TEMPERATURE (BEAKER) 36.1 C (test code = 1818) FIO2 (BEAKER) (test code = 1819) 60.0 % BLOOD GAS, [id number] 12:20:00 Test Item Value Reference Range Interpretation Comments PH ARTERIAL (BEAKER) (test code = 7.28 7.35-7.45 L 383) PCO2 ARTERIAL (BEAKER) (test code 55 mmHg 35-45 H = 384) PO2 ARTERIAL (BEAKER) (test code 421 mmHg 80-90 H = 385) O2 SATURATION ARTERIAL (BEAKER) 99.8 % 96.0-97.0 H (test code = 386) HCO3 ARTERIAL (BEAKER) (test code 25 mmol/L 21-29 = 388) BASE EXCESS ARTERIAL (BEAKER) -1.9 mmol/L -2.0-3.0 (test code = 387) PATIENT TEMPERATURE (BEAKER) 36.4 C (test code = 1818) FIO2 (BEAKER) (test code = 1819) 100.0 % GLUCOSE-STAT [id number] 12:20:00 Test Item Value Reference Range Interpretation Comments GLUCOSE RANDOM (BEAKER) (test code 142 mg/dL 70-110 H = 652) HGB/HCT (H&H) - STAT [id number] 12:20:00 Test Item Value Reference Range Interpretation Comments HEMOGLOBIN (BEAKER) (test code = 9.2 g/dL 13.0-16.8 L 410) HEMATOCRIT (BEAKER) (test code = 27.0 % 40.0-50.0 L 411) CALCIUM, [id number] 12:20:00 Test Item Value Reference Range Interpretation Comments CALCIUM IONIZED (BEAKER) (test 1.03 mmol/L 1.12-1.27 L code = 698) PH, BLOOD (BEAKER) (test code = 7.27 1810) SODIUM NA-STAT [id number] 12:18:00 Test Item Value Reference Range Interpretation Comments SODIUM (BEAKER) (test code = 381) 137 meq/L 135-148 POTASSIUM-STAT [id number] 12:18:00 Test Item Value Reference Range Interpretation Comments POTASSIUM (BEAKER) (test code = 4.7 meq/L 3.6-5.5 379) THROMBOELASTOGRAPH (TEG)2017-01-19 11:10:00 Test Item Value Reference Range Interpretation Comments TEG ACTIVATED CLOTTING TIME 6.8 minutes 4.0-7.0 (BEAKER) (test code = 1407) TEG FIBRINOGEN ACTIVITY (BEAKER) 68.8 degrees 61.0-73.0 (test code = 1408) TEG PLT. AGGREGATION (BEAKER) 46.6 MM 55.0-65.0 L (test code = 1409) TGH ACTIVATED CLOTTING TIME 6.2 minutes 4.0-7.0 (BEAKER) (test code = 1411) TGH FIBRINOGEN ACTIVITY (BEAKER) 68.6 degrees 61.0-73.0 (test code = 1412) TGH PLT. AGGREGATION (BEAKER) 58.4 MM 55.0-65.0 (test code = 1413) CALCIUM, [id number] 10:55:00 Test Item Value Reference Range Interpretation Comments CALCIUM IONIZED (BEAKER) (test 1.08 mmol/L 1.12-1.27 L code = 698) PH, BLOOD (BEAKER) (test code = 7.23 1810) BLOOD GAS, [id number] 10:55:00 Test Item Value Reference Range Interpretation Comments PH ARTERIAL (BEAKER) (test code = 7.24 7.35-7.45 L 383) PCO2 ARTERIAL (BEAKER) (test code 59 mmHg 35-45 H = 384) PO2 ARTERIAL (BEAKER) (test code 379 mmHg 80-90 H = 385) O2 SATURATION ARTERIAL (BEAKER) 99.7 % 96.0-97.0 H (test code = 386) HCO3 ARTERIAL (BEAKER) (test code 25 mmol/L 21-29 = 388) BASE EXCESS ARTERIAL (BEAKER) -2.6 mmol/L -2.0-3.0 L (test code = 387) PATIENT TEMPERATURE (BEAKER) 35.9 C (test code = 1818) FIO2 (BEAKER) (test code = 1819) 100.0 % GLUCOSE-STAT [id number] 10:55:00 Test Item Value Reference Range Interpretation Comments GLUCOSE RANDOM (BEAKER) (test code 131 mg/dL 70-110 H = 652) HGB/HCT (H&H) - STAT [id number] 10:55:00 Test Item Value Reference Range Interpretation Comments HEMOGLOBIN (BEAKER) (test code = 8.5 g/dL 13.0-16.8 L 410) HEMATOCRIT (BEAKER) (test code = 25.0 % 40.0-50.0 L 411) SODIUM NA-STAT [id number] 10:54:00 Test Item Value Reference Range Interpretation Comments SODIUM (BEAKER) (test code = 381) 135 meq/L 135-148 POTASSIUM-STAT [id number] 10:54:00 Test Item Value Reference Range Interpretation Comments POTASSIUM (BEAKER) (test code = 4.2 meq/L 3.6-5.5 379) [id number] 10:32:00 Test Item Value Reference Range Interpretation Comments FIBRINOGEN LEVEL ([facility]) (test 185 mg/dl 225-434 L code = 658) PROTHROMBIN [id number] 10:31:00 Test Item Value Reference Range Interpretation Comments PROTIME ([facility]) (test code = 18.0 seconds 11.7-14.7 H 759) INR ([facility]) (test code = 370) 1.5 <=5.9 RECOMMENDED COUMADIN/WARFARIN INR THERAPY RANGESSTANDARD DOSE: 2.0 - 3.0 Includes: PROPHYLAXIS forvenous thrombosis, systemic embolization; TREATMENT for venous thrombosis and/or pulmonary embolus.HIGH RISK: Target INR is 2.5-3.5 for patients with mechanical heart valves.[id number] 10:31:00 Test Item Value Reference Range Interpretation Comments PARTIAL THROMBOPLASTIN TIME 33.5 seconds 22.5-36.0 ([facility]) (test code = 760) [id number] 10:20:00 Test Item Value Reference Range Interpretation Comments ACTIVATED CLOTTING TIME 109 sec TEST ED AT [place] [address] ([facility]) (test code = [facility] [place] [address]) [address] [id number] 10:20:00 Test Item Value Reference Range Interpretation Comments ACTIVATED CLOTTING TIME 780 sec TEST ED AT [place] [address] ([facility]) (test code = [facility] [place] [address]) [address] [id number] 10:20:00 Test Item Value Reference Range Interpretation Comments ACTIVATED CLOTTING TIME 483 sec TEST ED AT [place] [address] ([facility]) (test code = [place] [address]) [address] PLATELET [id number] 10:07:00 Test Item Value Reference Range Interpretation Comments PLATELET COUNT ([facility]) (test 131 K/CU MM 150-450 L code = 756) CALCIUM, [id number] 10:06:00 Test Item Value Reference Range Interpretation Comments CALCIUM IONIZED ([facility]) (test 1.17 mmol/L 1.12-1.27 code = 698) PH, BLOOD ([facility]) (test code = 7.30 9060) BLOOD GAS, [id number] 10:05:00 Test Item Value Reference Range Interpretation Comments PH ARTERIAL ([facility]) (test code = 7.32 7.35-7.45 L 383) PCO2 ARTERIAL (BEAKER) (test code 47 mmHg 35-45 H = 384) PO2 ARTERIAL (BEAKER) (test code 436 mmHg 80-90 H = 385) O2 SATURATION ARTERIAL (BEAKER) 99.8 % 96.0-97.0 H (test code = 386) HCO3 ARTERIAL (BEAKER) (test code 24 mmol/L 21-29 = 388) BASE EXCESS ARTERIAL (BEAKER) -2.4 mmol/L -2.0-3.0 L (test code = 387) PATIENT TEMPERATURE (BEAKER) 35.8 C (test code = 1818) FIO2 (BEAKER) (test code = 1819) 100.0 % SODIUM NA-STAT [id number] 10:05:00 Test Item Value Reference Range Interpretation Comments SODIUM (BEAKER) (test code = 381) 132 meq/L 135-148 L HGB/HCT (H&H) - STAT [id number] 10:05:00 Test Item Value Reference Range Interpretation Comments HEMOGLOBIN (BEAKER) (test code = 10.1 g/dL 13.0-16.8 L 410) HEMATOCRIT (BEAKER) (test code = 30.0 % 40.0-50.0 L 411) GLUCOSE-STAT [id number] 10:04:00 Test Item Value Reference Range Interpretation Comments GLUCOSE RANDOM (BEAKER) (test code 110 mg/dL 70-110 = 652) POTASSIUM-STAT [id number] 10:04:00 Test Item Value Reference Range Interpretation Comments POTASSIUM (BEAKER) (test code = 4.2 meq/L 3.6-5.5 379) CALCIUM, [id number] 09:15:00 Test Item Value Reference Range Interpretation Comments CALCIUM IONIZED (BEAKER) (test 0.97 mmol/L 1.12-1.27 L code = 698) PH, BLOOD (BEAKER) (test code = 7.35 1810) BLOOD GAS, [id number] 09:14:00 Test Item Value Reference Range Interpretation Comments PH ARTERIAL (BEAKER) (test code = 7.44 7.35-7.45 383) PCO2 ARTERIAL (BEAKER) (test code 34 mmHg 35-45 L = 384) PO2 ARTERIAL (BEAKER) (test code 390 mmHg 80-90 H = 385) O2 SATURATION ARTERIAL (BEAKER) 99.8 % 96.0-97.0 H (test code = 386) HCO3 ARTERIAL (BEAKER) (test code 24 mmol/L 21-29 = 388) BASE EXCESS ARTERIAL (BEAKER) -2.0 mmol/L -2.0-3.0 (test code = 387) PATIENT TEMPERATURE (BEAKER) 31.1 C (test code = 1818) FIO2 (BEAKER) (test code = 1819) 80.0 % SODIUM NA-STAT [id number] 09:14:00 Test Item Value Reference Range Interpretation Comments SODIUM (BEAKER) (test code = 381) 132 meq/L 135-148 L GLUCOSE-STAT [id number] 09:14:00 Test Item Value Reference Range Interpretation Comments GLUCOSE RANDOM (BEAKER) (test code 117 mg/dL 70-110 H = 652) HGB/HCT (H&H) - STAT [id number] 09:14:00 Test Item Value Reference Range Interpretation Comments HEMOGLOBIN (BEAKER) (test code = 8.7 g/dL 13.0-16.8 L 410) HEMATOCRIT (BEAKER) (test code = 26.0 % 40.0-50.0 L 411) BLOOD GAS, [id number] 09:14:00 Test Item Value Reference Range Interpretation Comments PH VENOUS (BEAKER) (test code = 7.36 7.32-7.42 701) PCO2 VENOUS (BEAKER) (test code = 42 mmHg 41-51 755) PO2 VENOUS (BEAKER) (test code = 41 mmHg 25-40 H 702) O2 SATURATION VENOUS (BEAKER) 88.5 % 40.0-70.0 H (test code = 703) HCO3 VENOUS (BEAKER) (test code = 25 mmol/L 21-29 705) BASE EXCESS VENOUS (BEAKER) (test -1.7 mmol/L -2.0-3.0 code = 704) PATIENT TEMPERATURE (BEAKER) 31.1 C (test code = 1818) FIO2 (BEAKER) (test code = 1819) 80.0 % POTASSIUM-STAT [id number] 09:12:00 Test Item Value Reference Range Interpretation Comments POTASSIUM (BEAKER) (test code = 4.3 meq/L 3.6-5.5 379) PLATELET AGGREGATION: FUNCTION [id number] 08:41:00 Test Item Value Reference Range Interpretation Comments WEAK ADP 67 % 60-91 RESULT(BEAKER) (test code = 2135) PLATELET FUNCTION 60-100% indicates SCREEN INTERP (BEAKER) normal platelet (test code = 2173) function [id number] Nando Olmedo MD (BEAKER) (test code = (electronic signature) 7653) PLATELET COUNT AGG 272 K/CU MM 150-450 (BEAKER) (test code = 2656) GLUCOSE-STAT [id number] 08:27:00 Test Item Value Reference Range Interpretation Comments GLUCOSE RANDOM (BEAKER) (test code 108 mg/dL 70-110 = 652) SODIUM NA-STAT [id number] 08:27:00 Test Item Value Reference Range Interpretation Comments SODIUM (BEAKER) (test code = 381) 136 meq/L 135-148 POTASSIUM-STAT [id number] 08:27:00 Test Item Value Reference Range Interpretation Comments POTASSIUM (BEAKER) (test code = 3.8 meq/L 3.6-5.5 379) HGB/HCT (H&H) - STAT [id number] 08:27:00 Test Item Value Reference Range Interpretation Comments HEMOGLOBIN (BEAKER) (test code = 13.6 g/dL 13.0-16.8 410) HEMATOCRIT (BEAKER) (test code = 40.0 % 40.0-50.0 411) BLOOD GAS, [id number] 08:27:00 Test Item Value Reference Range Interpretation Comments PH ARTERIAL (BEAKER) (test code = 7.38 7.35-7.45 383) PCO2 ARTERIAL (BEAKER) (test code 46 mmHg 35-45 H = 384) PO2 ARTERIAL (BEAKER) (test code = 528 mmHg 80-90 H 385) O2 SATURATION ARTERIAL (BEAKER) 99.9 % 96.0-97.0 H (test code = 386) HCO3 ARTERIAL (BEAKER) (test code 26 mmol/L 21-29 = 388) BASE EXCESS ARTERIAL (BEAKER) 0.4 mmol/L -2.0-3.0 (test code = 387) PATIENT TEMPERATURE (BEAKER) (test 37.0 C code = 1818) FIO2 (BEAKER) (test code = 1819) 98.0 % HEMOGLOBIN [id number] 12:23:00 Test Item Value Reference Range Interpretation Comments HEMOGLOBIN A1C (BEAKER) (test code = 5.5 % 4.3-6.1 368) RAD, CHEST, 2 [id number] 12:03:00Reason for Exam:->Pre-OpFINAL REPORT Chest x-ray, PA [...] Walker Verified Date/Time: 01/11/2017 12:03:27 Reading Location: [facility] Radiology Reading Room [facility] METABOLIC [id number] 11:26:00 Test Item Value Reference Range Interpretation Comments SODIUM (BEAKER) 136 meq/L 136-145 (test code = 381) POTASSIUM (BEAKER) 4.5 meq/L 3.5-5.1 (test code = 379) CHLORIDE (BEAKER) 102 meq/L 98-107 (test code = 382) CO2 (BEAKER) (test 28 meq/L 22-29 code = 355) BLOOD UREA NITROGEN 12 mg/dL 7-21 (BEAKER) (test code = 354) CREATININE (BEAKER) 0.95 mg/dL 0.57-1.25 (test code = 358) GLUCOSE RANDOM 98 mg/dL 70-105 (BEAKER) (test code = 652) CALCIUM (BEAKER) 9.5 mg/dL 8.4-10.2 (test code = 697) EGFR (BEAKER) (test 80 mL/min/1.73 ESTIMA PRO GFR IS code = 1092) sq m NOT ACCURATE CREATININE CLEARANCE IN PREDICTING GLOMERULAR FILTRATION RATE . ESTIMATED GFR I S NOT APPLICABLE FOR DIALYSIS PATIEN TS. PROTHROMBIN [id number] 11:12:00 Test Item Value Reference Range Interpretation Comments PROTIME (BEAKER) (test code = 13.0 seconds 11.7-14.7 759) INR (BEAKER) (test code = 370) 1.0 <=5.9 RECOMMENDED COUMADIN/WARFARIN INR THERAPY RANGESSTANDARD DOSE: 2.0 - 3.0 Includes: PROPHYLAXIS forvenous thrombosis, systemic embolization; TREATMENT for venous thrombosis and/or pulmonary embolus.HIGH RISK: Target INR is 2.5-3.5 for patients with mechanical heart valves.CBC W/PLT COUNT & AUTO DIFFERENTIAL 2017-01-11 11:05:00 Test Item Value Reference Range Interpretation Comments WHITE BLOOD CELL COUNT (BEAKER) 5.5 K/ L 3.5-10.5 (test code = 775) RED BLOOD CELL COUNT (BEAKER) 4.56 M/ L 4.63-6.08 L (test code = 761) HEMOGLOBIN (BEAKER) (test code = 13.8 GM/DL 13.7-17.5 410) HEMATOCRIT (BEAKER) (test code = 41.7 % 40.1-51.0 411) MEAN CORPUSCULAR VOLUME (BEAKER) 91.4 fL 79.0-92.2 (test code = 753) MEAN CORPUSCULAR HEMOGLOBIN 30.3 pg 25.7-32.2 (BEAKER) (test code = 751) MEAN CORPUSCULAR HEMOGLOBIN CONC 33.1 GM/DL 32.3-36.5 (BEAKER) (test code = 752) RED CELL DISTRIBUTION WIDTH 12.9 % 11.6-14.4 (BEAKER) (test code = 412) PLATELET COUNT (BEAKER) (test 279 K/CU MM 150-450 code = 756) MEAN PLATELET VOLUME (BEAKER) 9.9 fL 9.4-12.4 (test code = 754) NUCLEATED RED BLOOD CELLS 0 /100 WBC 0-0 (BEAKER) (test code = 413) NEUTROPHILS RELATIVE PERCENT 60 % (BEAKER) (test code = 429) LYMPHOCYTES RELATIVE PERCENT 22 % (BEAKER) (test code = 430) MONOCYTES RELATIVE PERCENT 13 % (BEAKER) (test code = 431) EOSINOPHILS RELATIVE PERCENT 3 % (BEAKER) (test code = 432) BASOPHILS RELATIVE PERCENT 2 % (BEAKER) (test code = 437) NEUTROPHILS ABSOLUTE COUNT 3.31 K/ L 1.78-5.38 (BEAKER) (test code = 670) LYMPHOCYTES ABSOLUTE COUNT 1.22 K/ L 1.32-3.57 L (BEAKER) (test code = 414) MONOCYTES ABSOLUTE COUNT (BEAKER) 0.69 K/ L 0.30-0.82 (test code = 415) EOSINOPHILS ABSOLUTE COUNT 0.17 K/ L 0.04-0.54 (BEAKER) (test code = 416) BASOPHILS ABSOLUTE COUNT (BEAKER) 0.10 K/ L 0.01-0.08 H (test code = 417) IMMATURE GRANULOCYTES-RELATIVE 1 % 0-1 PERCENT (BEAKER) (test code = 8455)
[2019-11-08] MEDS ORDERED: NA CHLORIDE 0.9% 1,000 ML ONE (20:14)
[2019-11-08 20:18] LABS: Absolute Lymphocytes (CBC) 0.3 K/uL (0.7-4.9); Basophils % 0.3 % (0-1.3); Hematocrit 41.5 % (39.6-49.0); Lymphocytes % 2.5 % (15.3-44.8); MPV 8.3 fL (7.6-11.3); RBC Red Blood Cell Count 4.76 M/uL (4.33-5.43)
[2019-11-08 20:32] LABS: ALT/SGPT 29 U/L (12-78); AST/SGOT 22 U/L (15-37); Albumin 3.7 g/dL (3.4-5.0); Alkaline Phosphatase 110 U/L (45-117); BUN Blood Urea Nitrogen 19 mg/dL (7-18); Bicarbonate 25 mmol/L (21-32); Bilirubin Direct 0.1 mg/dL (0-0.2); Bilirubin Total 0.5 mg/dL (0.2-1.0); Creatine Phosphokinase 94 U/L (39-308); Glucose Level 114 mg/dL (74-106); Magnesium 1.7 mg/dL (1.8-2.4); NT PRO-BNP 107 pg/mL (<125); Potassium 3.9 mmol/L (3.5-5.1); Protein, Total 7.6 g/dL (6.4-8.2); Sodium Level 138 mmol/L (136-145); Troponin (Emerg Dept Use Only) < 0.02 ng/mL (0.0-0.045)
[2019-11-08 21:02] LABS: Urine Blood NEGATIVE (NEG); Urine Glucose NEGATIVE (NEG); Urine Protein NEGATIVE (NEG)
--- NOTE | 2019-11-08 21:18 | RAD REPORT ---
EXAM DESCRIPTION: Ernie Single View11/08/2019 9:00 pm CLINICAL HISTORY: Fever COMPARISON: 2014 FINDINGS: Right upper lobe and right parahilar opacity. The left lung appears clear Heart is normal size. Postsurgical changes involve chest IMPRESSION: Right upper lobe and right perihilar opacity probably pneumonia
[2019-11-08] MEDS ORDERED: ACETAMINOPHEN 500 MG TAB ONE (21:23)
[2019-11-08 21:38] LABS: Blood Morphology Comment NOT SEEN (NOT SEEN); Platelet Estimate ADEQ
[2019-11-08] MEDS ORDERED: CEFTRIAXONE/SWI 1gm 1 GM/10 ML SYR ONE (22:25)
[2019-11-08] MEDS ORDERED: AZITHROMYCIN 250 MG TAB ONE (22:25)
--- NOTE | 2019-11-08 22:37 | ER ---
Nurse's Notes [facility] Name: Jerad Minor Age: 69 yrs Sex: Male : 1950 Arrival Date: 11/08/2019 Time: 18:42 Bed 19 Private MD: Diagnosis: Pneumonia Presentation: 11/07 18:56 Chief complaint: Patient states: Mowing in the heat today. Started to feel dizzy, weak, ll1 super hot. Tried to rest in the shade and didn't get better. His temp at home said 108, so he came in to get checked. Noticed slight hesitancy answering questions. states she noticed him having trouble finding the words he wanted to use. He was very shaky earlier also his states. Coronavirus screen: Client denies travel out of the [place] in the last 14 days. At this time, the client does not indicate any symptoms associated with coronavirus-19. Ebola Screen: Patient denies travel to an Ebola-affected area in the 21 days before illness onset. No acute neurological deficit is noted. Initial Sepsis Screen: Does the patient meet any 2 criteria? No. Patient's initial sepsis screen is negative. Risk Assessment: Do you want to hurt yourself or someone else? Patient reports no desire to harm self or others. Onset of symptoms was November 08, 2019. 18:56 Method Of Arrival: Wheelchair ll1 18:56 Acuity: QUINTON 2 ll1 Stroke Activation: Symptom onset < 3 hours Physician: Stroke Attending; Name: ; Notified At: ; Arrived At: Physician: Chief Stroke Resident; Name: ; Notified At: ; Arrived At: Physician: Stroke Resident; Name: ; Notified At: ; Arrived At: Physician: ED Attending; Name: ; Notified At: ; Arrived At: Physician: ED Resident; Name: ; Notified At: ; Arrived At: Historical: - Allergies: 18:59 No Known Allergies; ll1 - PMHx: 18:59 [place]; arterial blockage; Mycobacterium intracellulare infection of the lung; ll1 - PSHx: 18:59 cardiac stents; Toney hernia; cataract; Skin cancer; CABG; ll1 - Immunization history:: Flu vaccine is up to date. - Social history:: Smoking status: Patient denies any tobacco usage or history of. Patient uses alcohol, only on a social basis. Patient/guardian denies using street drugs. Screenin:25 Abuse screen: Denies threats or abuse. Nutritional screening: No deficits noted. jb4 Tuberculosis screening: No symptoms or risk factors identified. Fall Risk None identified. Assessment: 19:25 General: Appears in no apparent distress. comfortable, Behavior is calm, cooperative, jb4 appropriate for age. 19:25 Pain: Denies pain. Neuro: Level of Consciousness is awake, alert, obeys commands, jb4 Oriented to person, place, time, situation. Cardiovascular: Patient's skin is warm and dry. Respiratory: Airway is patent Respiratory effort is even, unlabored, Respiratory pattern is regular, symmetrical. GI: No signs and/or symptoms were reported involving the gastrointestinal system. : No signs and/or symptoms were reported regarding the genitourinary system. EENT: No signs and/or symptoms were reported regarding the EENT system. Derm: Skin is intact, Skin is pink, warm \T\ dry. Musculoskeletal: Circulation, motion, and sensation intact. Range of motion: intact in all extremities. 20:30 Reassessment: Patient appears in no apparent distress at this time. Patient and/or jb4 family updated on plan of care and expected duration. Pain level reassessed. Patient is alert, oriented x 3, equal unlabored respirations, skin warm/dry/pink. 21:30 Reassessment: Patient appears in no apparent distress at this time. Patient and/or jb4 family updated on plan of care and expected duration. Pain level reassessed. Patient is alert, oriented x 3, equal unlabored respirations, skin warm/dry/pink. 22:30 Reassessment: Patient appears in no apparent distress at this time. Patient and/or jb4 family updated on plan of care and expected duration. Pain level reassessed. Patient is alert, oriented x 3, equal unlabored respirations, skin warm/dry/pink. 23:13 Reassessment: Patient appears in no apparent distress at this time. Patient and/or jb4 family updated on plan of care and expected duration. Pain level reassessed. Patient is alert, oriented x 3, equal unlabored respirations, skin warm/dry/pink. Pt verbalized understanding of d/c and follow up instruction. Ambulated out of ED with steady gait. Vital Signs: 18:56 BP 123 / 89; Pulse 102; Resp 18; Temp 103.0; Pulse Ox 100% ; Weight 79.38 kg; Height 5 ll1 ft. 7 in. (170.18 cm); Pain 0/10; 20:06 Temp 102.6(O); jp3 21:30 BP 130 / 78; Pulse 98; Resp 16; Pulse Ox 98% on R/A; jb4 22:30 BP 115 / 64; Pulse 99; Resp 16; Temp 100.3(O); Pulse Ox 98% on R/A; jb4 23:10 BP 108 / 78; Pulse 87; Resp 16; Temp 99.2(O); Pulse Ox 98% on R/A; jb4 18:56 Body Mass Index 27.41 (79.38 kg, 170.18 cm) ll1 ED Course: 18:42 Patient arrived in ED. ds1 18:59 Triage completed. ll1 19:00 Arm band placed on. ll1 19:25 Chase Trotter PA is PHCP. [facility] 19:25 Sonu Gayle MD is Attending Physician. [facility] 19:58 Clive Norton, TYLER is Primary Nurse. jb4 20:43 Placed in gown. Bed in low position. Call light in reach. Side rails up X 1. Side rails jp3 up X2. Pillow given. Verbal reassurance given. panel monitor on. Pulse ox on. NIBP on. 20:43 EKG done, by ED staff, reviewed by Chase GUEVARA. jp3 21:00 XRAY Chest (1 view) In Process Unspecified. EDMS 23:10 No provider procedures requiring assistance completed. IV discontinued, intact, jb4 bleeding controlled, No redness/swelling at site. Pressure dressing applied. Administered Medications: 20:00 Drug: NS 0.9% 1000 ml Route: IV; Rate: 1 bolus; Site: right antecubital; jb4 21:00 Follow up: Response: No adverse reaction; IV Status: Completed infusion; IV Intake: jb4 1000ml 21:15 Drug: Tylenol 1000 mg Route: PO; jb4 23:00 Follow up: Response: No adverse reaction; Temperature is decreased jb4 22:37 Drug: Rocephin 1 grams Route: IV; Rate: calculated rate; Site: right antecubital; jb4 22:39 Follow up: Response: No adverse reaction; IV Status: Completed infusion; IV Intake: 15bzki0 22:37 Drug: AZITHromycin 500 mg Route: PO; jb4 23:00 Follow up: Response: No adverse reaction jb4 Intake: 21:00 IV: 1000ml; Total: 1000ml. jb4 22:39 IV: 10ml; Total: 1010ml. jb4 Outcome: 22:37 Discharge ordered by . aaron 23:10 Discharged to home ambulatory. jb4 23:10 Condition: stable 23:10 Discharge instructions given to patient, Instructed on discharge instructions, follow up and referral plans. medication usage, Demonstrated understanding of instructions, follow-up care, medications, Prescriptions given X 1. 23:19 Patient left the ED. jb4 Addendum: 11/11/2019 14:34 Addendum: COVID-19 Result: Negative result given to RN to notify pt. Notified pt of i w negative COVID 19 swab results. Pt advised that even with a negative test result they should remain in isolation until symptom free for 3 days without medication. Pt also advised to return to the ED for worsening symptoms. Signatures: Dispatcher [employer] EDMS Chase Trotter PA PA jmm Sanford, Demi ds1 Maegan Crawford RN RN iw Clive Norton RN RN jb4 Jose Andrade jp3 Candy Phillips, TYLER RN ll1 Corrections: (The following items were deleted from the chart) 11/07 19:28 18:56 Chief complaint: Patient states: Mowing in the heat today. Started to feel dizzy, ll1 weak, super hot. Tried to rest in the shade and didn't get better. His temp at home said 108, so he came in to get checked. ll1
--- NOTE | 2019-11-08 22:37 | EDPHYS ---
Physician Documentation [facility] Name: Jerad Minor Age: 69 yrs Sex: Male : 1950 Arrival Date: 11/08/2019 Time: 18:42 Bed 19 Private MD: ED Physician Sonu Gayle HPI: 11/07 19:43 This 69 yrs old Male presents to ER via Wheelchair with complaints of Fever, jmm Weakness - Tired. 19:43 The patient reports fever, not measured (subjective). Onset: The symptoms/episode jmm began/occurred today. Modifying factors: there are no obvious modifying factors. This is a 69 year old male with a history of cad that presents to the ED with complaints of fatigue and weakness after mowing his lawn today. Denies headache, chest pain, shortness of breath, abdominal pain, vomiting. Patient is concerned he may be heat exhausted. . Historical: - Allergies: 18:59 No Known Allergies; ll1 - PMHx: 18:59 [place]; arterial blockage; Mycobacterium intracellulare infection of the lung; ll1 - PSHx: 18:59 cardiac stents; Toney hernia; cataract; Skin cancer; CABG; ll1 - Immunization history:: Flu vaccine is up to date. - Social history:: Smoking status: Patient denies any tobacco usage or history of. Patient uses alcohol, only on a social basis. Patient/guardian denies using street drugs. ROS: 19:43 Skin: Negative for jmm 19:43 All other systems are negative. 19:43 Cardiovascular: Negative for chest pain, palpitations, and edema, Respiratory: Negative jmm for shortness of breath, cough, wheezing, and pleuritic chest pain, Abdomen/GI: Negative for abdominal pain, nausea, vomiting, diarrhea, and constipation, Neuro: Negative for headache, weakness, numbness, tingling, and seizure. 19:43 Constitutional: Positive for fever, malaise. Exam: 19:43 Constitutional: This is a well developed, well nourished patient who is awake, alert, jmm and in no acute distress. 19:43 Head/face: 19:43 Constitutional: This is a well developed, well nourished patient who is awake, alert, jmm and in no acute distress. Head/Face: atraumatic. Eyes: EOMI, no conjunctival erythema appreciated ENT: Moist Mucus Membranes Neck: Trachea midline, Supple Chest/axilla: Normal chest wall appearance and motion. Cardiovascular: Regular rate and rhythm. No edema appreciated Respiratory: Normal respirations, no respiratory distress appreciated Abdomen/GI: Non distended, soft Back: Normal ROM Skin: General appearance color normal MS/ Extremity: Moves all extremities, no obvious deformities appreciated, no edema noted to the lower extremities Neuro: Awake and alert, normal gait Psych: Behavior is normal, Mood is normal, Patient is cooperative and pleasant 23:57 ECG was reviewed by the Attending Physician. [facility] Vital Signs: 18:56 BP 123 / 89; Pulse 102; Resp 18; Temp 103.0; Pulse Ox 100% ; Weight 79.38 kg; Height 5 ll1 ft. 7 in. (170.18 cm); Pain 0/10; 20:06 Temp 102.6(O); jp3 21:30 BP 130 / 78; Pulse 98; Resp 16; Pulse Ox 98% on R/A; jb4 22:30 BP 115 / 64; Pulse 99; Resp 16; Temp 100.3(O); Pulse Ox 98% on R/A; jb4 23:10 BP 108 / 78; Pulse 87; Resp 16; Temp 99.2(O); Pulse Ox 98% on R/A; jb4 18:56 Body Mass Index 27.41 (79.38 kg, 170.18 cm) ll1 MDM: 19:43 Patient medically screened. [facility] 22:36 Data reviewed: vital signs, nurses notes. Counseling: I had a detailed discussion with [facility] the patient and/or guardian regarding: the historical points, exam findings, and any diagnostic results supporting the discharge/admit diagnosis, lab results, radiology results, the need for outpatient follow up, to return to the emergency department if symptoms worsen or persist or if there are any questions or concerns that arise at home. ED course: Patient is alert and non toxic in appearance in the ED. No signs of resp distress. Patient prescribed oral abx and otherwise given strict return precautions. Patient understood and agrees with the plan of care. . 11/07 19:52 Order name: Basic Metabolic Panel; Complete Time: 20:39 [facility] 11/07 19:52 Order name: CBC with Diff; Complete Time: 21:42 [facility] 11/07 19:52 Order name: LFT's; Complete Time: 20:40 [facility] 11/07 19:52 Order name: Magnesium; Complete Time: 20:40 [facility] 11/07 19:52 Order name: NT PRO-BNP; Complete Time: 20:40 [facility] 11/07 19:52 Order name: PT-INR; Complete Time: 20:40 [facility] 11/07 19:52 Order name: Troponin (emerg Dept Use Only); Complete Time: 20:40 [facility] 11/07 19:52 Order name: COVID-19 [facility] 11/07 19:52 Order name: CPK; Complete Time: 20:40 [facility] 11/07 19:53 Order name: Procalcitonin; Complete Time: 20:48 [facility] 11/07 19:53 Order name: Blood Culture Adult (2) [facility] 11/07 19:53 Order name: Lactate; Complete Time: 20:51 [facility] 11/07 19:53 Order name: Urine Culture [facility] 11/07 20:52 Order name: Urine Dipstick--Ancillary (enter results); Complete Time: 21:04 [facility] 11/07 19:52 Order name: XRAY Chest (1 view); Complete Time: 21:21 [facility] 11/07 19:52 Order name: EKG; Complete Time: 19:53 [facility] 11/07 19:52 Order name: Cardiac monitoring; Complete Time: 20:43 [facility] 11/07 19:52 Order name: EKG - Nurse/Tech; Complete Time: 20:43 [facility] 11/07 19:52 Order name: IV Saline Lock; Complete Time: 20:33 [facility] 11/07 19:52 Order name: Labs collected and sent; Complete Time: 20:33 [facility] 11/07 19:52 Order name: O2 Per Protocol; Complete Time: 20:33 [facility] 11/07 19:52 Order name: O2 Sat Monitoring; Complete Time: 20:33 [facility] 11/07 19:53 Order name: Urine Dipstick-Ancillary (obtain specimen); Complete Time: 21:06 [facility] 11/07 21:22 Order name: Manual Differential; Complete Time: 21:42 EDMS EC:57 Rate is 91 beats/min. Rhythm is regular. QRS [place] is Normal. [place] interval is normal. QRS jmm interval is normal. QT interval is normal. T waves are Inverted in lead aVL. T waves are Flattened in leads I, V1. No ST changes noted. Reviewed by me. Administered Medications: 20:00 Drug: NS 0.9% 1000 ml Route: IV; Rate: 1 bolus; Site: right antecubital; jb4 21:00 Follow up: Response: No adverse reaction; IV Status: Completed infusion; IV Intake: jb4 1000ml 21:15 Drug: Tylenol 1000 mg Route: PO; jb4 23:00 Follow up: Response: No adverse reaction; Temperature is decreased jb4 22:37 Drug: Rocephin 1 grams Route: IV; Rate: calculated rate; Site: right antecubital; jb4 22:39 Follow up: Response: No adverse reaction; IV Status: Completed infusion; IV Intake: [id number] 22:37 Drug: AZITHromycin 500 mg Route: PO; jb4 23:00 Follow up: Response: No adverse reaction jb4 Disposition: 11/08 17:02 Co-signature as Attending Physician, Sonu Gayle MD I agree with the assessment and [facility] plan of care. Disposition: 11/08/19 22:37 Discharged to Home. Impression: Pneumonia. - Condition is Stable. - Discharge Instructions: Community-Acquired Pneumonia, Adult. - Prescriptions for Zithromax Z- Zachary 250 mg Oral Tablet - take 1 tablet by ORAL route as directed for 5 days Day 1 - take two (2) tablets one time. Day 2, 3, 4 , 5 take one (1) tablet once daily.; 6 tablet. - Medication Reconciliation Form, Thank You Letter, Antibiotic Education, Prescription Opioid Use form. - Follow up: Private Physician; When: 2 - 3 days; Reason: Recheck today's complaints, Continuance of care, Re-evaluation by your physician. Signatures: Dispatcher [employer] [facility] Sonu Gayle MD MD cha Mickail, Joel, PA PA jmm Bryson, James, RN RN jb4 Candy Phillips RN RN ll1 Corrections: (The following items were deleted from the chart) 11/07 21:27 21:25 CBC Smear Scan ordered. [facility] 23:19 22:37 11/08/2019 22:37 Discharged to Home. Impression: Pneumonia. Condition is Stable. jb4 Forms are Medication Reconciliation Form, Thank You Letter, Antibiotic Education, Prescription Opioid Use. Follow up: Private Physician; When: 2 - 3 days; Reason: Recheck today's complaints, Continuance of care, Re-evaluation by your physician. aaron 23:57 19:43 Constitutional: Negative for fever, chills, and weight loss, Cardiovascular: aaron Negative for chest pain, palpitations, and edema, Respiratory: Negative for shortness of breath, cough, wheezing, and pleuritic chest pain, aaron 23:57 19:43 Skin: Positive for erythema, aaron walkre
[2019-11-11 01:47] VITALS: BP 123/89; O2SAT 100
[2019-11-11 01:48] VITALS: TEMP 102.6
== END 2019-11-08 23:19 | disposition home or self-care (01) ==
LOC: ER 18:41
DX: J18.9 Pneumonia, unspecified organism (principal); Z20.828 Contact with and (suspected) exposure to other viral communicable diseases
CPT/HCPCS: 96361; 93005; 87040 ×2; 85025; 87086; 80048; 36415; 83735; 82550; 85610; 80076; 83605; 81003; 84484; 84145; 83880; 71045; 96374; 99284; U0002; J0696; J7030; 87088

== ENCOUNTER 2023-12-10 19:14 | Emergency (ER) | payer OTHER ==
--- NOTE | 2023-12-10 21:22 | RAD REPORT ---
EXAMINATION: ONE VIEW CHEST XR CLINICAL INDICATION: COUGH TECHNIQUE: Frontal chest projection is submitted. Examination is limited by patient positioning and t echnique. COMPARISON: 11/08/2019 FINDINGS: 2 cm rounded cavitary lesion in the right upper lobe laterally, appearing similar to prior studies. M ild reticular opacities are present in the right middle lobe. The left lung is emphysematous. Postsurgical changes are present involving the CABG. Sternotomy wires. IMPRESSION: Cavitary lesion is seen in the right upper lobe laterally, likely chronic. Reticular opacities in the right lung base laterally probably represents atypical infection.
[2023-12-10 21:43] LABS: Absolute Basophils 0.1 K/uL (0-0.5); Absolute Eosinophils 0.2 K/uL (0-0.5); Absolute Lymphocytes (CBC) 1.9 K/uL (0.7-4.9); Absolute Monocytes 0.8 K/uL (0.1-1.3); Absolute Neutrophil 5.8 K/uL (1.8-8.0); Basophils % 0.8 % (0-1.3); Eosinophils % 2.3 % (0-4.4); Hematocrit 39.8 % (39.6-49.0); Hemoglobin 13.2 g/dL (13.6-17.9); Lymphocytes % 21.6 % (15.3-44.8); MCH 29.3 pg (27.0-35.0); MCHC 33.1 g/dL (32.0-36.0); MCV 88.4 fL (80-100); MPV 7.8 fL (7.6-11.3); Monocytes % 8.9 % (3.3-12.3); Neutrophils % 66.4 % (41.7-73.7); Platelets 365 thou/uL (152-406)
[2023-12-10 22:34] LABS: ALT/SGPT 34 U/L (16-61); AST/SGOT 64 U/L (15-37); Albumin 3.3 g/dL (3.4-5.0); Albumin/Globulin Ratio 0.8 (1.1-1.8); Alkaline Phosphatase 80 U/L (45-117); Anion Gap 10.7 mEq/L (5.0-15.0); BUN Blood Urea Nitrogen 22 mg/dL (7-18); Bicarbonate 22 mEq/L (21-32); Bilirubin Total 0.7 mg/dL (0.2-1.0); Globulin 4.2 g/dL (2.3-3.5); Glomerular Filtration Rate 59 ml/min (=/>90); Glucose Level 98 mg/dL (74-106); Magnesium 2.1 mg/dL (1.6-2.4); NT PRO-BNP 74 pg/mL (<125); Potassium 4.7 mEq/L (3.5-5.1); Protein, Total 7.5 g/dL (6.4-8.2); Sodium Level 131 mEq/L (136-145); Troponin High Sensitivity 9.1 pg/mL (<58.9)
[2023-12-10 22:35] LABS: Bilirubin Direct < 0.2 mg/dL (0-0.2); Bilirubin Indirect, Calculated 0.5 mg/dL (0.2-0.8)
[2023-12-10 22:36] LABS: Specific Gravity > 1.030 (1.005-1.030); Sqamous Epithelial None Seen /HPF (None Seen); Urine Bacteria None Seen /HPF (<20); Urine Bilirubin NEGATIVE (Negative); Urine Blood Trace (Negative); Urine Clarity Clear (Clear); Urine Color Yellow (Yellow); Urine Culture Reflex Order NOT NEEDED; Urine Glucose NEGATIVE (Negative); Urine Ketones 1+ (Negative); Urine Microscopic Reflex YN ORDER UMIC; Urine Mucus Slight /HPF (None Seen); Urine Nitrite NEGATIVE (Negative); Urine Protein TRACE (Negative); Urine RBC <5 /HPF (None Seen); Urine Urobilinogen Normal (Normal); Urine WBC <5 /HPF (<5); Urine pH 5.5 (5.0-7.0)
--- NOTE | 2023-12-11 00:18 | RAD REPORT ---
CT HEAD WITHOUT IV CONTRAST INDICATION: Confusion times 1 month. COMPARISON: None TECHNIQUE: CT images of the head were obtained without contrast. Multiplanar reformats were provided. Dose lowering techniques such as automated exposure control, iterative reconstruction, and mA and/or kV adjustment for patient size was utilized for this examination. FINDINGS: PARENCHYMA: No acute arterial territory infarct. No acute intracranial hemorrhage. No mass effect or midline shift. VENTRICLES: Normal in size for patient's age. EXTRA-AXIAL: No focal collection. Patent basilar cisterns. ORBITS: No acute findings. BONES: No acute finding. PARANASAL SINUSES/MASTOIDS/MIDDLE EARS: Clear. SOFT TISSUES: No acute findings. OTHER: None. IMPRESSION: No acute intracranial abnormality. Electronically signed by: Kristen Spencer MD 12/11/2023 12:09 AM CDT Due to temporary technical issues with the PACS/[employer] reporting system, reports are being christopher d by the in-house radiologist without review as a courtesy to ensure prompt reporting the interpreting radiologist is fully responsible for the content of the report. Transcribed Date/Time: 12/11/2023 12:18 AM
--- NOTE | 2023-12-11 00:31 | RAD REPORT ---
Clinical Indication: Bed Name: 20; COUGH Comparison: None TECHNIQUE: Sequential trans-axial images were obtained through the chest and upper abdomen after admi nistration of iodinated contrast. Coronal and sagittal reconstructions were obtained. Coronal and sagittal MIP images were performed and provided as separate series. IV CONTRAST: IV contrast dose was not provided All CT scans at this location are performed using dose optimization techniques as appropriate to perf orm the study. Radiation dose reduction technique was utilized including one or more of the following: Automated exp osure control, adjustment of the mA and/or kV according to patient size and use of iterative reconstruction technique. CT Radiation Dose DLP 1340.6 mGy-cm FINDINGS: LUNG PARENCHYMA AND PLEURA: Diffuse bronchiectasis is noted within the upper and lower lobes. Cystic bronchiectasis is noted with in the right upper and right lower lobes. Scattered peribronchial opacities are noted, consistent with bronchopneumonia. Calcified pleural plaques are noted. Irregular thick-walled cavitary lesion no mechelle in the right upper lobe. This can be seen on image 115 of series 601. No air-fluid level is noted. The whole complex measures 3.1 x 2.1 cm in cross-section. This is slightly thick-walled with c entral pleural calcification. There are no pleural effusions. There is no pneumothorax. AIRWAY: The central airway is patent. Enlargement of the trachea and bronchi are noted. MEDIASTINUM: No significant mediastinal lymphadenopathy. HEART: There is no evidence of RV strain. The cardiac chambers are otherwise unremarkable. There is trace pericardial effusion. VASCULAR STRUCTURES: The ascending aorta measures 3.2 cm in diameter with the descending aorta measur ing 2.4 cm in diameter at the level of the main pulmonary artery. The main pulmonary artery measures 2.9 cm in diameter. There are no segmental pulmonary emboli noted. The main, right and le ft pulmonary arteries are normal. The great vessels are unremarkable. The thoracic aorta is unremarkable and without dissection or aneurysm. The superior vena cava is unremarkable. OSSEOUS STRUCTURES: There are no definite acute osseous abnormalities seen. VISUALIZED UPPER ABDOMEN: The visualized upper abdomen is within normal limits. IMPRESSION: 1. No evidence of pulmonary emboli. 2. Diffuse bronchiectasis with cystic changes and cystic bronchiectasis, predominantly in the right l brian. Some areas of bronchopneumonia are noted. 3. Peripheral cavitary lesion within the right upper lobe is slightly thick-walled without air-fluid level. Electronically signed by: Mane Sarmiento MD 12/11/2023 12:27 AM CDT RP Due to temporary technical issues with the PACS/Collect reporting system, reports are being christopher d by the in-house radiologist without review as a courtesy to ensure prompt reporting the interpreting radiologist is fully responsible for the content of the report. Transcribed Date/Time: 12/11/2023 12:31 AM
--- NOTE | 2023-12-11 00:49 | ER ---
Nurse's Notes [facility] Name: Jerad Minor Age: 73 yrs Sex: Male : 1950 Arrival Date: 12/10/2023 Time: 19:14 Bed 20 Private MD: Diagnosis: Pneumonia, unspecified organism;Other symptoms and signs involving cognitive functions and awareness Presentation: 12/09 20:12 Chief complaint: Patient states: Hasn't been feeling well over the last few days. Pt's cm10 friend states that patient has had a cough X2 months. Pts friend states that patient has been having memory issues and trying to get his words out onset 1 month ago. Coronavirus screen: Client denies travel out of the [place] in the last 14 days. Ebola Screen: Patient denies travel to an Ebola-affected area in the 21 days before illness onset. No symptoms or risks identified at this time. Initial Sepsis Screen: Does the patient meet any 2 criteria? No. Patient's initial sepsis screen is negative. Does the patient have a suspected source of infection? No. Patient's initial sepsis screen is negative. Risk Assessment: Do you want to hurt yourself or someone else? Patient reports no desire to harm self or others. Onset of symptoms was December 10, 2023. 20:12 Method Of Arrival: Ambulatory cm10 20:12 Acuity: QUINTON 3 cm10 Triage Assessment: 20:17 General: Appears in no apparent distress. comfortable, Behavior is calm, cooperative. cm10 Neuro: No deficits noted. Level of Consciousness is awake, alert, obeys commands, Oriented to person, place, time, situation, Appropriate for age. Respiratory: No deficits noted. Airway is patent Respiratory effort is even, unlabored, Respiratory pattern is regular, symmetrical. 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 - Infectious Disease History:: Denies. - Social history:: Smoking status: Patient/guardian denies using tobacco, but has a distant history of tobacco abuse. Screenin:15 [facility] ED Fall Risk Assessment (Adult) History of falling in the last 3 months, me1 including since admission No falls in past 3 months (0 pts) Confusion or Disorientation No (0 pts) Intoxicated or Sedated No (0 pts) Impaired Gait No (0 pts) Mobility Assist Device Used No (0 pt) Altered Elimination No (0 pt) Score/Fall Risk Level 0 - 2 = Low Risk Maintained a safe environment, Provided non-skid footwear, Hourly rounding (assess needs \T\ fall precautionary measures) done. Abuse screen: Denies threats or abuse. Nutritional screening: No deficits noted. Tuberculosis screening: No symptoms or risk factors identified. Assessment: 21:15 General: Appears comfortable, well developed, well nourished, Behavior is calm, me1 cooperative, appropriate for age, Reports Hasn't been feeling well over the last few days. Pt's friend states that patient has had a cough X2 months. Pts friend states that patient has been having memory issues and trying to get his words out onset 1 month ago. Pain: Denies pain. Neuro: Level of Consciousness is awake, alert, obeys commands, Oriented to person, place, time, situation, Appropriate for age forgetful. Cardiovascular: Patient's skin is warm and dry. Respiratory: Reports cough that is persistent since 2 months ago Airway is patent Respiratory effort is even, unlabored, Respiratory pattern is regular, symmetrical, Breath sounds are clear bilaterally. GI: No signs and/or symptoms were reported involving the gastrointestinal system. : No signs and/or symptoms were reported regarding the genitourinary system. EENT: Throat is pink. Derm: skin on face is dry, flaky and peeling with a greenish color where it is peeling. Musculoskeletal: No signs and/or symptoms reported regarding the musculoskeletal system. Vital Signs: 20:12 BP 157 / 95; Pulse 86; Resp 16; Temp 98.2; Pulse Ox 95% on R/A; Weight 71.5 kg; Height cm10 5 ft. 11 in. ; 22:00 BP 166 / 98; Pulse 79; Resp 16; Pulse Ox 99% ; me1 23:00 BP 166 / 100; Pulse 80; Resp 17; Pulse Ox 100% ; me1 23:30 BP 157 / 100; Pulse 72; Resp 16; Pulse Ox 100% ; me1 20:12 Body Mass Index 21.98 (71.50 kg, 180.34 cm) cm10 ED Course: 19:17 Patient arrived in ED. jj6 19:54 Sonu Shipley PA is PHCP. cp 19:54 Sonu Gayle MD is Attending Physician. cp 20:17 Triage completed. cm10 20:17 Arm band placed on Patient placed in waiting room. cm10 21:10 Yoli Herring, RN is Primary Nurse. me1 21:15 Patient has correct armband on for positive identification. Bed in low position. Call me1 light in reach. Side rails up X2. Provided Education on: POC, Verbalized understanding. . Client placed on continuous cardiac and pulse oximetry monitoring. NIBP monitoring applied. hospital monitor on. Pulse ox on. NIBP on. 21:15 No provider procedures requiring assistance completed. me1 21:16 XRAY Chest (1 view) In Process Unspecified. EDMS 21:26 Basic Metabolic Panel Sent. me1 21:26 CBC with Diff Sent. me1 21:26 LFT's Sent. me1 21:26 Magnesium Sent. me1 21:26 NT PRO-BNP Sent. me1 21:26 PT-INR Sent. me1 21:26 Troponin HS Sent. me1 21:26 Initial lab(s) drawn, by hi, sent to lab. Inserted saline lock: 22 gauge in right hi1 antecubital area, using aseptic technique. 22:36 Urinalysis w/ reflexes Sent. me1 22:36 Urine collected: clean catch specimen, clear, anastasiia colored. me1 23:23 CT Head Brain wo Cont In Process Unspecified. EDMS 23:24 CT Chest For PE Angio In Process Unspecified. EDMS 12/10 00:47 Lópze Reagan MD is Referral Physician. cp 01:07 IV discontinued, intact, bleeding controlled, No redness/swelling at site. Pressure dd2 dressing applied. Administered Medications: 01:07 Drug: LevOfloxacin PO 750 mg PO once Route: PO; dd2 01:07 Follow up: Response: Medication administered at discharge. dd2 Medication: 12/09 21:15 VIS not applicable for this client. hi1 Outcome: 12/10 00:49 Discharge ordered by . cp 01:07 Discharged to home ambulatory, dd2 01:07 Condition: stable 01:07 Discharge instructions given to patient, Instructed on discharge instructions, follow up and referral plans. medication usage, Demonstrated understanding of instructions, follow-up care, medications, Prescriptions given X 3, 01:08 Patient left the ED. dd2 Signatures: Dispatcher [employer] EDMS Sonu Shipley PA PA cp Jeffries, Jennifer jj6 Rosalba Hudson RN RN cm10 Yoli Herring RN RN me1 STEPHANIE BAILEY RN RN dd2 Corrections: (The following items were deleted from the chart) 12/09 21:12 20:12 Chief complaint: Patient states: Hasn't been feeling well over the last few days. me1 Pt's friend states that patient has had a cough X2 months. Pts friend states that patient has been having memory issues and trying to get his words out onset 1 month ago. 10 22:32 20:12 Chief complaint: Patient states: Hasn't been feeling well over the last few days. me1 Pt's friend states that patient has had a cough X2 months. Pts friend states that patient has been having memory issues and trying to get his words out onset 1 month ago. me1
--- NOTE | 2023-12-11 00:49 | EDPHYS ---
Physician Documentation [facility] Name: Jerad Minor Age: 73 yrs Sex: Male : 1950 Arrival Date: 12/10/2023 Time: 19:14 Bed 20 Private MD: ED Physician Sonu Gayle HPI: 12/09 21:00 This 73 yrs old Male presents to ER via Ambulatory with complaints of Cough times 2 cp months. 21:00 The patient or guardian reports cough, that is intermittent, with productive sputum, cp flu symptoms, no appetite, bodyaches. 21:00 Onset: The symptoms/episode began/occurred 2 month(s) ago. cp 21:03 The patient's problem is reported as memory loss. Onset: The symptoms/episode cp began/occurred 1 month(s) ago. Context: the episode(s) was witnessed, by a friend, Possible contributing factors include: treatment for skin cancer. 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 - Infectious Disease History:: Denies. - Social history:: Smoking status: Patient/guardian denies using tobacco, but has a distant history of tobacco abuse. ROS: 21:05 Constitutional: Positive for body aches, Negative for chills, fever, poor PO intake, cp 21:05 Eyes: Negative for injury, pain, redness, and discharge, cp 21:05 ENT: Negative for drainage from ear(s), ear pain, sore throat, difficulty swallowing, difficulty handling secretions, 21:05 Cardiovascular: Negative for chest pain, edema, palpitations, 21:05 Respiratory: Positive for cough, "sounds productive", Negative for shortness of breath, wheezing, 21:05 Abdomen/GI: Negative for abdominal pain, vomiting, diarrhea, constipation, black/tarry stool, rectal bleeding, 21:05 Skin: Negative for rash, 21:05 Neuro: Positive for weakness, memory loss, Negative for altered mental status, headache, numbness, seizure activity, 21:05 All other systems are negative, Exam: 22:10 Constitutional: The patient appears in no acute distress, alert, awake, cp non-diaphoretic, non-toxic, well developed, well nourished, 22:10 Head/Face: Normocephalic, atraumatic. cp 22:10 Eyes: Periorbital structures: appear normal, Pupils: equal, round, and reactive to light and accomodation, Extraocular movements: intact throughout, Conjunctiva: normal, no exudate, no injection, Sclera: no appreciated abnormality, Lids and lashes: appear normal, bilaterally, 22:10 ENT: External ear(s): are unremarkable, Nose: is normal, Mouth: Lips: moist, Oral mucosa: pink and intact, moist, Posterior pharynx: Airway: no evidence of obstruction, patent, 22:10 Chest/axilla: Inspection: normal, 22:10 Cardiovascular: Rate: normal, Rhythm: regular, Edema: is not appreciated, JVD: is not appreciated, 22:10 Respiratory: the patient does not display signs of respiratory distress, Respirations: normal, no use of accessory muscles, no retractions, labored breathing, is not present, Breath sounds: decreased breath sounds, are not appreciated, stridor, is not appreciated, wheezing: is not appreciated, 22:10 Abdomen/GI: Inspection: abdomen appears normal, Palpation: abdomen is soft and non-tender, in all quadrants, 22:10 Back: pain, is absent, ROM is normal, 22:10 Neuro: Orientation: to person, place \\T\\ time. Mentation: able to follow commands, Cerebellar function: is grossly normal, Motor: moves all fours, strength is normal, Sensation: is normal, 22:40 ECG was reviewed by the Attending Physician. cp Vital Signs: 20:12 BP 157 / 95; Pulse 86; Resp 16; Temp 98.2; Pulse Ox 95% on R/A; Weight 71.5 kg; Height cm10 5 ft. 11 in. ; 22:00 BP 166 / 98; Pulse 79; Resp 16; Pulse Ox 99% ; me1 23:00 BP 166 / 100; Pulse 80; Resp 17; Pulse Ox 100% ; me1 23:30 BP 157 / 100; Pulse 72; Resp 16; Pulse Ox 100% ; me1 20:12 Body Mass Index 21.98 (71.50 kg, 180.34 cm) cm10 MDM: 21:00 Differential Diagnosis: Bronchitis Influenza Pharyngitis Viral Syndrome Pneumonia Other cp CVA. 12/10 00:48 Data reviewed: vital signs, nurses notes, lab test result(s), EKG, radiologic studies, cp CT scan, plain films, and as a result, I will discharge patient. 00:48 I considered the following discharge prescriptions or medication management in the emergency department Medications were administered in the Emergency Department. See MAR. Independent interpretation of the following test(s) in the Emergency Department EKG: See my EKG interpretation above. Counseling: I had a detailed discussion with the patient and/or guardian regarding the historical points, exam findings, and any diagnostic results supporting the discharge/admit diagnosis, lab results, radiology results, the need for outpatient follow up, a family practitioner, a neurologist, to return to the emergency department if symptoms worsen or persist or if there are any questions or concerns that arise at home. 00:49 Patient medically screened. 12/09 20:57 Order name: Basic Metabolic Panel; Complete Time: 22:36 12/10 00:37 Interpretation: Normal except: NA 131; BUN 22; GFR 59. 12/09 20:57 Order name: CBC with Diff; Complete Time: 22:36 12/10 00:38 Interpretation: Normal except: HGB 13.2; RDW 16.0. 12/09 20:57 Order name: LFT's; Complete Time: 22:36 12/10 00:59 Interpretation: Normal except: AST 64. 12/09 20:57 Order name: Magnesium; Complete Time: 22:36 12/09 20:57 Order name: NT PRO-BNP; Complete Time: 22:36 12/09 20:57 Order name: Troponin HS; Complete Time: 22:36 12/09 20:57 Order name: Urinalysis w/ reflexes; Complete Time: 22:36 12/09 20:57 Order name: XRAY Chest (1 view); Complete Time: 21:32 12/09 21:33 Interpretation: Report reviewed. 12/09 22:38 Order name: CT Head Brain wo Cont 12/09 22:38 Order name: CT Chest For PE Angio 12/09 20:57 Order name: EKG; Complete Time: 20:57 12/09 20:57 Order name: Cardiac monitoring; Complete Time: 22:36 12/09 20:57 Order name: EKG - Nurse/Tech; Complete Time: 22:36 12/09 20:57 Order name: IV Saline Lock; Complete Time: 21:26 cp 12/09 20:57 Order name: Labs collected and sent; Complete Time: 21:26 cp 12/09 20:57 Order name: O2 Per Protocol; Complete Time: 21:26 cp 12/09 20:57 Order name: O2 Sat Monitoring; Complete Time: 21:26 cp 12/09 21:44 Order name: Misc. Order: recollects green top; Complete Time: 22:36 vk EC/04 22:40 Rate is 83 beats/min. Rhythm is regular. ID interval is normal. QRS interval is normal. cp QT interval is normal. T waves are Inverted in lead aVR. Interpreted by me. Reviewed by me. Administered Medications: 12/10 01:07 Drug: LevOfloxacin PO 750 mg PO once Route: PO; dd2 01:07 Follow up: Response: Medication administered at discharge. dd2 Disposition: 12/11 00:05 Chart complete. cp Disposition Summary: 12/11/23 00:49 Discharge Ordered Notes: Location: Home cp Problem: new cp Symptoms: have improved cp Condition: Stable cp Diagnosis - Pneumonia, unspecified organism cp - Other symptoms and signs involving cognitive functions and awareness cp Followup: cp - With: López Reagan MD - When: 5 - 6 days - Reason: cognitive decline Discharge Instructions: - Discharge Summary Sheet cp - Community-Acquired Pneumonia, Adult cp - Mild Neurocognitive Disorder cp Forms: - Medication Reconciliation Form cp - Antibiotic Education cp - Prescription Opioid Use cp - Patient Portal Instructions cp - Leadership Thank You Letter cp Prescriptions: - Bromfed DM 2-30-10 mg/5 mL Oral syrup - administer 10 milliliter ORAL route every 8 hours as needed for cold symptoms; cp 240 milliliter; Refills: 0, Product Selection Permitted - albuterol sulfate 90 mcg/actuation Inhalation HFA Aerosol Inhaler - inhale 1 inhalation INHALATION route every 4 to 6 hours as needed for cough; cp administer via ventilator; 1 unit; Refills: 0, Product Selection Permitted - levofloxacin 500 mg Oral tablet - take 1 tablet ORAL route once daily for 8-10 days start morning of 12-12-2023; 9 cp tablet; Refills: 0, Product Selection Permitted Signatures: Dispatcher [employer] EDKY Sonu Shipley PA PA Rosalba Royal, RN RN cm10 Yoli Herring RN RN me1 Monica Linder DIANA, RN RN dd2 Corrections: (The following items were deleted from the chart) 12/09 22:38 22:38 Head Brain Wo Cont+CT.RAD.BRZ ordered. EDMS EDMS 22:38 Chest For PE Angio+CT.RAD.BRZ ordered. EDMS EDMS 12/10 22:40 12/09 21:00 This 73 yrs old Male presents to ER via Ambulatory with complaints of Sore cp Throat. cp
[2023-12-11] MEDS ORDERED: levoFLOXacin 750 MG TAB ONE (01:02)
[2023-12-11 02:21] VITALS: TEMP 98.2
[2023-12-11 02:25] VITALS: O2SAT 100
[2023-12-11 02:26] VITALS: BP 157/100
--- NOTE | 2023-12-13 11:58 | EKG ---
Test Date: 2023-12-10 Test Time: 22:34:04 Industrial Technologist: JIMMIE MEASUREMENT RESULTS: Intervals: Rate: 83 AR: 148 QRSD: 82 QT: 378 QTc: 444 [place]: P: 86 AR: 148 QRS: 69 T: 70 INTERPRETIVE STATEMENTS: Normal sinus rhythm Normal ECG Compared to ECG 11/08/2019 20:41:51 No significant changes Electronically Signed On 12-13-23 11:53:44 CDT by Austin Siegel
== END 2023-12-11 01:08 | disposition home or self-care (01) ==
LOC: ER 19:14
DX: J18.9 Pneumonia, unspecified organism (principal); R41.89 Other symptoms and signs involving cognitive functions and awareness
CPT/HCPCS: 93005; 85025; 81001; 80048; 36415; 83735; 80076; 84484; 83880; 70450; 71275; 71045; 99284; Q9967

== ENCOUNTER 2023-12-29 13:09 | Emergency (ER) | payer OTHER ==
--- NOTE | 2023-12-29 13:46 | RAD REPORT ---
EXAMINATION: CT HEAD WITHOUT CONTRAST CT CERVICAL SPINE WITHOUT CONTRAST CLINICAL INDICATION: Syncope. Head and neck injury status post fall. Head and neck pain TECHNIQUE: Axial CT images from the skull base to the vertex without intravenous contrast. Axial CT i mages through the cervical spine were obtained without intravenous contrast. Sagittal and coronal reformatted images were created from the data set. Coronal and sagittal reformatted images were creat ed from the data set. One or more of the following dose reduction techniques were used: Automated exposure control, adjustment of the mA and/or kV according to patient size, and/or iterative reconstr uction. Unless otherwise specified, incidental findings do not require dedicated imaging follow-up. [id number]. Comparison: December 10, [address] FINDINGS: Intracranial bleed not noted. Ventricles are normal in caliber. No significant hypodensity within the brain No extra-axial fluid collection. No fluid within the sinuses/mastoids No fracture or dislocation is seen involving the cervical spine. Slight anterior subluxation C3 on C4. Mild posterior subluxation C4 on C5, C5 on C6 and C6 on C7. Sli ght anterior subluxation C7 on T1. No significant soft tissue swelling seen. Moderate spondylosis involves the cervical spine. Cavitary lesion right upper lobe has been present since 2018 so is unlikely neoplastic. IMPRESSION: No acute intracranial abnormality noted A cervical fracture is not seen. 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
[2023-12-29 13:50] LABS: Absolute Lymphocytes (CBC) 1.1 K/uL (0.7-4.9); Absolute Monocytes 0.7 K/uL (0.1-1.3); Absolute Neutrophil 1.7 K/uL (1.8-8.0); Basophils % 0.4 % (0-1.3); Eosinophils % 0.1 % (0-4.4); Hematocrit 34.4 % (39.6-49.0); Hemoglobin 11.4 g/dL (13.6-17.9); Lymphocytes % 30.5 % (15.3-44.8); MCH 28.8 pg (27.0-35.0); MCHC 33.2 g/dL (32.0-36.0); MCV 86.8 fL (80-100); MPV 8.1 fL (7.6-11.3); Monocytes % 20.5 % (3.3-12.3); Neutrophils % 48.5 % (41.7-73.7); Nucleated Red Blood Cells % 0.1 % (0-0); Platelets 217 thou/uL (152-406); RBC Red Blood Cell Count 3.96 M/uL (4.33-5.43); Red Cell Distribution Width 16.6 % (12.1-15.2)
[2023-12-29 13:51] LABS: PT Prothrombin Time 12.3 SECONDS (9.4-12.5); Protime INR 1.1
--- NOTE | 2023-12-29 13:53 | RAD REPORT ---
Procedure: Chest Single View HISTORY: Cough COMPARISON: December 10, 2023 FINDINGS: Right upper lobe cavity unchanged Tubular nodular opacities lingula and right lower lobe unchanged probably No significant pleural effusion noted. The heart is normal size. Post surgical changes involving the chest
[2023-12-29 14:07] LABS: ALT/SGPT 45 U/L (16-61); AST/SGOT 56 U/L (15-37); Albumin 2.8 g/dL (3.4-5.0); Albumin/Globulin Ratio 0.8 (1.1-1.8); Alkaline Phosphatase 57 U/L (45-117); Anion Gap 9.8 mEq/L (5.0-15.0); BUN Blood Urea Nitrogen 21 mg/dL (7-18); Bicarbonate 25 mEq/L (21-32); Bilirubin Total 0.4 mg/dL (0.2-1.0); Globulin 3.3 g/dL (2.3-3.5); Glomerular Filtration Rate 48 ml/min (=/>90); Glucose Level 98 mg/dL (74-106); NT PRO-BNP 57 pg/mL (<125); Potassium 3.8 mEq/L (3.5-5.1); Protein, Total 6.1 g/dL (6.4-8.2); Sodium Level 131 mEq/L (136-145)
[2023-12-29 14:08] LABS: Bilirubin Direct < 0.2 mg/dL (0-0.2); Bilirubin Indirect, Calculated 0.2 mg/dL (0.2-0.8)
[2023-12-29 14:40] LABS: Blood Morphology Comment NOT SEEN (NOT SEEN); Differential Total Cells Count 100; Lymphocytes 35 % (15-42); Monocytes 15 % (0-10); Platelet Estimate ADEQ; Segmented Neutrophils 49 % (40-80)
--- NOTE | 2023-12-29 17:08 | EDPHYS ---
Physician Documentation [facility] Name: Jerad Minor Age: 73 yrs Sex: Male : 1950 Arrival Date: 12/29/2023 Time: 13:09 Bed 2 Private MD: ED Physician Sonu Gayle HPI: 12/28 17:00 This 73 yrs old Male presents to ER via EMS with complaints of Syncope. mario alberto 17:00 The patient has experienced near-syncope, almost passed out, felt dizzy, felt faint. mario alberto Onset: The symptoms/episode began/occurred just prior to arrival. Duration: This was a single episode, that lasted 20 second(s). Context: the episode(s) was witnessed, by EMS personnel, by family, by a friend, by teacher(s), ok sleeping pill accidentally this morning. Associated injury: The patient did not suffer any apparent associated injury. Associated signs and symptoms: Pertinent positives: dizziness, lightheadedness. Current symptoms: Currently, the patient is not experiencing any symptoms, the patient feels back to baseline. The patient has not experienced similar symptoms in the past. 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 - Infectious Disease History:: Denies. - Social history:: Smoking status: Patient denies any tobacco usage or history of. - Family history:: not pertinent. ROS: 17:00 Constitutional: Negative for fever, chills, and weight loss, Eyes: Negative for injury, mario alberto pain, redness, and discharge, ENT: Negative for injury, pain, and discharge, Neck: Negative for injury, pain, and swelling, Cardiovascular: Negative for chest pain, palpitations, and edema, Respiratory: Negative for shortness of breath, cough, wheezing, and pleuritic chest pain, Abdomen/GI: Negative for abdominal pain, nausea, vomiting, diarrhea, and constipation, Back: Negative for injury and pain, : Negative for injury, bleeding, discharge, and swelling, MS/Extremity: Negative for injury and deformity, Skin: Negative for injury, rash, and discoloration, Psych: Negative for depression, anxiety, suicide ideation, homicidal ideation, and hallucinations, Allergy/Immunology: Negative for hives, rash, and allergies, Endocrine: Negative for neck swelling, polydipsia, polyuria, polyphagia, and marked weight changes, Hematologic/Lymphatic: Negative for swollen nodes, abnormal bleeding, and unusual bruising, 17:00 Neuro: Positive for near syncope, weakness, Exam: 17:00 Constitutional: This is a well developed, well nourished patient who is awake, alert, mario alberto and in no acute distress. Head/Face: Normocephalic, atraumatic. Eyes: Pupils equal round and reactive to light, extra-ocular motions intact. Lids and lashes normal. Conjunctiva and sclera are non-icteric and not injected. Cornea within normal limits. Periorbital areas with no swelling, redness, or edema. ENT: Nares patent. No nasal discharge, no septal abnormalities noted. Tympanic membranes are normal and external auditory canals are clear. Oropharynx with no redness, swelling, or masses, exudates, or evidence of obstruction, uvula midline. Mucous membranes moist. Neck: Trachea midline, no thyromegaly or masses palpated, and no cervical lymphadenopathy. Supple, full range of motion without nuchal rigidity, or vertebral point tenderness. No Meningismus. Chest/axilla: Normal chest wall appearance and motion. Nontender with no deformity. No lesions are appreciated. Cardiovascular: Regular rate and rhythm with a normal S1 and S2. No gallops, murmurs, or rubs. Normal PMI, no JVD. No pulse deficits. Respiratory: Lungs have equal breath sounds bilaterally, clear to auscultation and percussion. No rales, rhonchi or wheezes noted. No increased work of breathing, no retractions or nasal flaring. Abdomen/GI: Soft, non-tender, with normal bowel sounds. No distension or tympany. No guarding or rebound. No evidence of tenderness throughout. Back: No spinal tenderness. No costovertebral tenderness. Full range of motion. Male : Normal genitalia with no discharge or lesions. Skin: Warm, dry with normal turgor. Normal color with no rashes, no lesions, and no evidence of cellulitis. MS/ Extremity: Pulses equal, no cyanosis. Neurovascular intact. Full, normal range of motion. Neuro: Awake and alert, GCS 15, oriented to person, place, time, and situation. Cranial nerves II-XII grossly intact. Motor strength 5/5 in all extremities. Sensory grossly intact. Cerebellar exam normal. Normal gait. Psych: Awake, alert, with orientation to person, place and time. Behavior, mood, and affect are within normal limits. 17:00 ECG was reviewed by the Attending Physician. 17:00 Neuro: Orientation: is normal, appropriate for stated age, no acute changes, Mentation: is normal, appropriate for stated age, no acute changes, Memory: is normal, appropriate for stated age, no acute changes, Cranial nerves: grossly normal, is grossly normal based on the patient's age, no acute changes, Cerebellar function: is grossly normal, is grossly normal based on the patient's age, no acute changes, Motor: is normal, is grossly normal based on the patient's age, no acute changes, moves all fours, strength is normal, strength is 5/5 in all extremities, 17:00 Psych: Behavior/mood is pleasant, cooperative, Affect is calm, Oriented to person, place, time, Patient has no thoughts/intents to harm self or others. Judgement / Insight is normal. Recent memory is Delusions/hallucinations Vital Signs: 13:17 BP 110 / 68; Pulse 68; Resp 24; Temp 98.5; Pulse Ox 98% on 2 lpm NC; bp 14:31 BP 105 / 71; Pulse 58; Resp 16; Temp 19; Pulse Ox 97% on R/A; hb 15:17 BP 107 / 70; Pulse 55; Resp 16; Pulse Ox 98% on R/A; hb 16:29 BP 112 / 63; Pulse 53; Resp 17; Pulse Ox 96% on R/A; hb 17:30 BP 118 / 68; Pulse 59; Resp 16; Pulse Ox 100% on R/A; hb MDM: 13:17 Medical Screening Exam initiated mario alberto 17:04 Differential Diagnosis: cardiac arrhythmia, cerebrovascular accident, drug effect, mario alberto emotional response, GI bleed, idiopathic syncope, pseudo seizure, seizure, sepsis, transient ischemic attack, vasovagal episode. Data reviewed: vital signs, nurses notes, lab test result(s), EKG, radiologic studies, CT scan, plain films. Consideration of Admission/Observation Escalation of care including admission/observation considered. I considered the following discharge prescriptions or medication management in the emergency department Medications were administered in the Emergency Department. See MAR. Independent interpretation of the following test(s) in the Emergency Department EKG: See my EKG interpretation above. Test considered but Not performed: MRI: no mri brain. Historians other than the Patient: Spouse/Significant Other: well informed. Care significantly affected by the following chronic conditions: cad, cad, mi, jose. Counseling: I had a detailed discussion with the patient and/or guardian regarding the historical points, exam findings, and any diagnostic results supporting the discharge/admit diagnosis, lab results, radiology results, the need for outpatient follow up, for definitive care, a family practitioner. 12/28 13:18 Order name: Basic Metabolic Panel; Complete Time: 16:55 mario alberto 12/28 13:18 Order name: CBC with Diff; Complete Time: 16:55 12/28 13:18 Order name: LFT's; Complete Time: 16:55 12/28 13:18 Order name: Magnesium; Complete Time: 16:55 mario alberto 12/28 13:18 Order name: NT PRO-BNP; Complete Time: 16:55 12/28 13:18 Order name: PT-INR; Complete Time: 16:55 12/28 13:18 Order name: Troponin HS; Complete Time: 16:55 mario alberto 12/28 13:18 Order name: Urinalysis w/ reflexes mario alberto 12/28 14:40 Order name: Manual Differential; Complete Time: 16:55 EDMS 12/28 13:18 Order name: XRAY Chest (1 view); Complete Time: 16:55 12/28 13:18 Order name: CT Head C Spine; Complete Time: 16:55 mario alberto 12/28 13:18 Order name: Cardiac monitoring; Complete Time: 13:18 12/28 13:18 Order name: EKG - Nurse/Tech; Complete Time: 13:18 12/28 13:18 Order name: IV Saline Lock; Complete Time: 13:18 12/28 13:18 Order name: Labs collected and sent; Complete [facility]: [facility] 12[facility] 13:18 Order name: O2 Per Protocol; Complete [facility]: [facility] 12/28 13:18 Order name: O2 Sat Monitoring; Complete Time: [facility] EC:00 Rate is 56 beats/min. Rhythm is regular. QRS [place] is Normal. [place] interval is normal. QRS mario alberto interval is normal. QT interval is normal. No Q waves. T waves are Normal. No ST changes noted. Clinical impression: Sinus bradycardia and No evidence of ischemia. Administered Medications: 13:26 Drug: NS 0.9% IV 500 ml 500 ml IV at 1 bolus once; to be given as a bolus over 30 bp minutes Volume: 500 ml; Route: IV; Rate: 1 bolus; Site: left antecubital; 14:05 Follow up: Response: No adverse reaction; IV Status: Completed infusion; IV Intake: hb 500ml 13:26 Drug: NS 0.9% IV 1000 ml IV at 125 ml/hr continuous Route: IV; Rate: 125 ml/hr; Site: bp left antecubital; 17:39 Follow up: Response: No adverse reaction; IV Status: Completed infusion; IV Intake: hb 500ml Point of Care Testing: Blood Glucose: : Blood Glucose: 98 mg/dL; bp Ranges: Critical Glucose Levels:Adult <50 mg/dl or >400 mg/dl <40 mg/dl or >180 mg/dl Disposition Summary: 12/29/23 17:07 Discharge Ordered Notes: Location: Home mario alberto Problem: new mario alberto Symptoms: have improved mario alberto Condition: Stable mario alberto Diagnosis - Adverse effect of unspecified drugs, medicaments and biological substances - mario alberto sleeping pill accidentally this morning - Altered mental status, unspecified - resolved mario alberto Followup: mario alberto - With: Private Physician - When: 2 - 3 days - Reason: Recheck today's complaints, Continuance of care, Re-evaluation by your physician Discharge Instructions: - Discharge Summary Sheet mario alberto - Near-Syncope mario alberto - Weakness mario alberto - Near-Syncope, [id number] mario alberto - Weakness, [id number] mario alberto Forms: - Medication Reconciliation Form mario alberto - Antibiotic Education mario alberto - Prescription Opioid Use mario alberto - Patient Portal Instructions mario alberto - Leadership Thank You Letter mario alberto Signatures: Dispatcher [employer] Sonu Ruiz MD MD cha Baxter, Heather, RN RN hb Nacho, Kenny, RN RN bp Corrections: (The following items were deleted from the chart) 13:18 13:18 Head C Spine MPR Wo Con+CT.RAD.BRZ ordered. EDMS EDMS
--- NOTE | 2023-12-29 17:08 | ER ---
Nurse's Notes [facility] Name: Jerad Minor Age: 73 yrs Sex: Male : 1950 Arrival Date: 12/29/2023 Time: 13:09 Bed 2 Private MD: Diagnosis: Adverse effect of unspecified drugs, medicaments and biological substances-sleeping pill accidentally this morning;Altered mental status, unspecified-resolved Presentation: 12/28 13:17 Chief complaint: EMS states: SYNCOPE AFTER EATING AT [employer]. Coronavirus screen: At this bp time, the client does not indicate any symptoms associated with coronavirus-19. Ebola Screen: No symptoms or risks identified at this time. Initial Sepsis Screen: Does the patient meet any 2 criteria? RR > 20 per min. No. Patient's initial sepsis screen is negative. Does the patient have a suspected source of infection? No. Patient's initial sepsis screen is negative. Risk Assessment: Do you want to hurt yourself or someone else? Patient reports no desire to harm self or others. Onset of symptoms is unknown. Care prior to arrival: IV initiated. 20 GA, in the left antecubital area, Glucose check: 98. 13:17 Method Of Arrival: EMS: [facility] bp 13:17 Acuity: QUINTON 3 bp Triage Assessment: 13:18 General: Appears in no apparent distress. comfortable, Behavior is calm, cooperative, bp appropriate for age. Pain: Denies pain. EENT: No deficits noted. Neuro: Level of Consciousness is awake, alert, obeys commands, Oriented to Appropriate for age Reports a syncopal episode. Cardiovascular: Rhythm is sinus rhythm. Historical: - Allergies: 15:17 No Known Allergies; hb - Home Meds: 13:18 Ecotrin 81 mg Oral 1 tab daily [Active]; sertraline 100 mg oral tablet 1.5 tabs daily bp [Active]; metoprolol tartrate 50 mg oral tablet 1 tab 2 times per day [Active]; Lipitor 40 mg Oral tab 1 tab once daily [Active]; quetiapine 50 mg oral tablet 1 tab every day at bedtime [Active]; - PMHx: 13:18 arterial blockage; [place]; Mycobacterium intracellulare infection of the lung; bp - Immunization history:: Adult Immunizations up to date. - Infectious Disease History:: Denies. - Social history:: Smoking status: Patient denies any tobacco usage or history of. - Family history:: not pertinent. Screenin:00 [facility] ED Fall Risk Assessment (Adult) History of falling in the last 3 months, bp including since admission No falls in past 3 months (0 pts) Confusion or Disorientation No (0 pts) Intoxicated or Sedated No (0 pts) Impaired Gait No (0 pts) Mobility Assist Device Used No (0 pt) Altered Elimination No (0 pt) Score/Fall Risk Level 0 - 2 = Low Risk. Abuse screen: Denies threats or abuse. Denies injuries from another. Nutritional screening: No deficits noted. Tuberculosis screening: No symptoms or risk factors identified. Assessment: 14:31 Reassessment: Patient appears in no apparent distress at this time. Patient and/or hb family updated on plan of care and expected duration. Pain level reassessed. Patient is alert, oriented x 3, equal unlabored respirations, skin warm/dry/pink. 15:17 Reassessment: No changes from previously documented assessment. Patient and/or family hb updated on plan of care and expected duration. Pain level reassessed. Patient is alert, oriented x 3, equal unlabored respirations, skin warm/dry/pink. 16:29 Reassessment: Patient appears in no apparent distress at this time. Patient and/or hb family updated on plan of care and expected duration. Pain level reassessed. Patient is alert, oriented x 3, equal unlabored respirations, skin warm/dry/pink. 17:37 Reassessment: Patient appears in no apparent distress at this time. Patient and/or hb family updated on plan of care and expected duration. Pain level reassessed. Patient is alert, oriented x 3, equal unlabored respirations, skin warm/dry/pink. Patient states feeling better. Patient states symptoms have improved. Vital Signs: 13:17 BP 110 / 68; Pulse 68; Resp 24; Temp 98.5; Pulse Ox 98% on 2 lpm NC; bp 14:31 BP 105 / 71; Pulse 58; Resp 16; Temp 19; Pulse Ox 97% on R/A; hb 15:17 BP 107 / 70; Pulse 55; Resp 16; Pulse Ox 98% on R/A; hb 16:29 BP 112 / 63; Pulse 53; Resp 17; Pulse Ox 96% on R/A; hb 17:30 BP 118 / 68; Pulse 59; Resp 16; Pulse Ox 100% on R/A; hb ED Course: 13:15 Patient arrived in ED. bp 13:15 Provided Education on: USE OF CALL LIGHT . Client placed on continuous cardiac and hb pulse oximetry monitoring. NIBP monitoring applied. mine expert on. Pulse ox on. NIBP on. 13:17 Sonu Gayle MD is Attending Physician. mario alberto 13:18 Triage completed. bp 13:18 EKG done, by ED staff, reviewed by Sonu Gayle MD. hb 13:18 Arm band placed on. bp 13:21 Kenny Griffith, TYLER is Primary Nurse. bp 13:22 Maintain EMS IV. Dressing intact. Good blood return noted. Site clean \T\ dry. Gauge \T\ bp site: 20 L AC. 13:28 CT Head C Spine In Process Unspecified. EDMS 13:33 XRAY Chest (1 view) In Process Unspecified. EDMS 14:00 Patient has correct armband on for positive identification. bp 17:38 No provider procedures requiring assistance completed. IV discontinued, intact, hb bleeding controlled, No redness/swelling at site. Pressure dressing applied. Administered Medications: 13:26 Drug: NS 0.9% IV 500 ml 500 ml IV at 1 bolus once; to be given as a bolus over 30 bp minutes Volume: 500 ml; Route: IV; Rate: 1 bolus; Site: left antecubital; 14:05 Follow up: Response: No adverse reaction; IV Status: Completed infusion; IV Intake: hb 500ml 13:26 Drug: NS 0.9% IV 1000 ml IV at 125 ml/hr continuous Route: IV; Rate: 125 ml/hr; Site: bp left antecubital; 17:39 Follow up: Response: No adverse reaction; IV Status: Completed infusion; IV Intake: hb 500ml Medication: 17:39 VIS not applicable for this client. hb Point of Care Testing: Blood Glucose: 13:18 Blood Glucose: 98 mg/dL; bp Ranges: Intake: 14:05 IV: 500ml; Total: 500ml. hb 17:39 IV: 500ml; Total: 1000ml. hb Outcome: 17:07 Discharge ordered by . mario alberto 17:38 Discharged to home via wheelchair, with family, hb 17:38 Condition: stable 17:38 Discharge instructions given to patient, Instructed on discharge instructions, follow up and referral plans. medication usage, Demonstrated understanding of instructions, follow-up care, medications, 17:39 Patient left the ED. hb Signatures: Dispatcher [employer] EDSonu Zayas MD MD cha Baxter, Heather, RN RN Kenny Ivory, RN RN bp
[2023-12-29 17:12] LABS: Urine Bilirubin NEGATIVE (Negative); Urine Blood Negative (Negative); Urine Clarity Clear (Clear); Urine Color Colorless (Yellow); Urine Glucose NEGATIVE (Negative); Urine Ketones NEGATIVE (Negative); Urine Microscopic Reflex YN NO UMIC; Urine Nitrite NEGATIVE (Negative); Urine Protein NEGATIVE (Negative); Urine Urobilinogen Normal (Normal)
[2023-12-30 00:33] VITALS: TEMP 19
[2023-12-30 00:37] VITALS: BP 118/68; O2SAT 100
--- NOTE | 2023-12-30 12:17 | EKG ---
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
== END 2023-12-29 17:39 | disposition home or self-care (01) ==
LOC: ER 13:09
DX: R55 Syncope and collapse (principal); T50.995A Adverse effect of other drugs, medicaments and biological substances, initial encounter; R53.1 Weakness; I25.2 Old myocardial infarction
CPT/HCPCS: 36415; 70450; 71045; 72125; 80048; 80076; 81003; 83735; 83880; 84484; 85025; 85610; 93005; 96360; 96361; 99285

== ENCOUNTER 2024-01-04 18:40 | Inpatient (IN) | payer OTHER ==
[2024-01-04 20:07] LABS: Absolute Lymphocytes (CBC) 1.2 K/uL (0.7-4.9); Absolute Monocytes 1.9 K/uL (0.1-1.3); Absolute Neutrophil 16.3 K/uL (1.8-8.0); Hematocrit 39.3 % (39.6-49.0); Hemoglobin 12.9 g/dL (13.6-17.9); Lymphocytes % 6.4 % (15.3-44.8); MCH 28.6 pg (27.0-35.0); MCHC 32.8 g/dL (32.0-36.0); MPV 7.7 fL (7.6-11.3); Monocytes % 9.9 % (3.3-12.3); Neutrophils % 83.7 % (41.7-73.7); Platelets 337 thou/uL (152-406); RBC Red Blood Cell Count 4.51 M/uL (4.33-5.43); Red Cell Distribution Width 16.6 % (12.1-15.2)
[2024-01-04 20:19] LABS: PT Prothrombin Time 13.9 SECONDS (9.4-12.5); PTT, Activated Partial Thromb 27.3 SECONDS (24.3-36.9); Protime INR 1.25
[2024-01-04 20:31] LABS: Albumin/Globulin Ratio 0.7 (1.1-1.8); Anion Gap 11.1 mEq/L (5.0-15.0); Bilirubin Total 0.9 mg/dL (0.2-1.0); Globulin 4.6 g/dL (2.3-3.5); Potassium 4.1 mEq/L (3.5-5.1); Protein, Total 7.6 g/dL (6.4-8.2); Troponin High Sensitivity 6.4 pg/mL (<58.9)
--- NOTE | 2024-01-04 20:38 | RAD REPORT ---
EXAMINATION: ONE VIEW CHEST XR CLINICAL INDICATION: Male, 73 years old.,MALAISE TECHNIQUE: Frontal chest projection is submitted. Examination is limited by patient positioning and t echnique. COMPARISON: 12/29/2023. FINDINGS: The lungs are well inflated. Patchy airspace right lower lung opacities. Scarring in the right upper lung again seen. No pneumothorax or sizable effusion. The heart is normal in size. Mediastinal contours are unchanged, with sequelae of prior CABG. IMPRESSION: Patchy airspace right lower lung opacities, raising concern for pneumonia.
--- NOTE | 2024-01-04 20:56 | RAD REPORT ---
EXAM: CT Head Brain Wo Cont HISTORY: CONFUSED COMPARISON: 12/10/2023 TECHNIQUE: Multiple contiguous axial images were obtained for a CT of the brain without contrast. Sag ittal and coronal reformats were performed. One or more of the following dose reduction techniques were used: Automated exposure control, adjus tment of the mA and kV according to patient size, and iterative reconstruction. Unless otherwise specified, incidental findings do not require dedicated imaging follow-up. FINDINGS: No evidence of hydrocephalus, intracranial hemorrhage, or extra-axial fluid collection. Mild brain atrophy with mild periventricular and deep white matter chronic microvascular ischemic ch anges present. The calvarium is intact. The visualized paranasal sinuses and mastoid air cells are essentially clear . IMPRESSION: No evidence of acute intracranial abnormality.
--- NOTE | 2024-01-04 21:01 | EDPHYS ---
Physician Documentation [facility] Name: Jerad Minor Age: 73 yrs Sex: Male : 1950 Arrival Date: 01/04/2024 Time: 18:40 Bed 2 Private MD: Alon Gray ED Physician Leander Barnes HPI: 01/03 19:57 This 73 yrs old Male presents to ER via Wheelchair with complaints of confusion, sp3 dehydration, Doesn't Feel Right, General Weakness. 19:57 73-year-old male with history of CVA, pneumonia, prior hyponatremia now presents to the sp3 ED for chief complaint altered mental status, confusion and generalized weakness over the last 3 to 4 days. Review of systems, history and physical limited secondary to mentation. However patient is talking and denies current headache, chest pain, shortness of breath, abdominal pain, vomiting, diarrhea or any other symptoms. He does state he feels weak. Family is at bedside who gives most of history.. Historical: - Allergies: 19:35 No Known Allergies; vc1 - Home Meds: 19:35 sertraline 150 mg oral capsule daily [Active]; Lipitor 40 mg Oral tab 1 tab once daily vc1 [Active]; quetiapine 50 mg Oral tablet 1 tab every day at bedtime [Active]; Ecotrin 81 mg Oral 1 tab daily [Active]; metoprolol tartrate 50 mg Oral tablet 1 tab 2 times per day [Active]; levothyroxine 25 mcg oral capsule daily [Active]; pantoprazole 40 mg oral tablet, delayed release (enteric coated) daily [Active]; - PMHx: 19:35 arterial blockage; ND; Mycobacterium intracellulare infection of the lung; vc1 - PSHx: 19:35 Cardiac Bypass (Mycobacterium intracellulare infection of the lung); vc1 - Immunization history:: Client reports receiving the 2nd dose of the Covid vaccine, Flu vaccine is not up to date. - Infectious Disease History:: Denies. - Social history:: Smoking status: Patient/guardian denies using tobacco, but has a distant history of tobacco abuse. ROS: 19:58 Unable to obtain ROS due to altered mental status, sp3 21:00 Constitutional: as per hpi ec2 Exam: 19:58 Constitutional: This is a well developed, well nourished patient who is awake, alert, sp3 and in no acute distress. Head/Face: Normocephalic, atraumatic. Eyes: Pupils equal round and reactive to light, extra-ocular motions intact. Lids and lashes normal. Conjunctiva and sclera are non-icteric and not injected. Cornea within normal limits. Periorbital areas with no swelling, redness, or edema. Neck: Trachea midline, no thyromegaly or masses palpated, and no cervical lymphadenopathy. Supple, full range of motion without nuchal rigidity, or vertebral point tenderness. No Meningismus. Chest/axilla: Normal chest wall appearance and motion. Nontender with no deformity. No lesions are appreciated. Cardiovascular: Regular rate and rhythm with a normal S1 and S2. No gallops, murmurs, or rubs. Normal PMI, no JVD. No pulse deficits. Respiratory: Lungs have equal breath sounds bilaterally, clear to auscultation and percussion. No rales, rhonchi or wheezes noted. No increased work of breathing, no retractions or nasal flaring. Abdomen/GI: Soft, non-tender, with normal bowel sounds. No distension or tympany. No guarding or rebound. No evidence of tenderness throughout. Back: No spinal tenderness. No costovertebral tenderness. Full range of motion. Skin: Warm, dry with normal turgor. Normal color with no rashes, no lesions, and no evidence of cellulitis. MS/ Extremity: Pulses equal, no cyanosis. Neurovascular intact. Full, normal range of motion. Psych: Awake, alert, with orientation to person, place and time. Behavior, mood, and affect are within normal limits. 19:58 Neuro: Patient confused however awake, alert, protecting his airway and no focal deficits. Cranial nerves grossly intact., Vital Signs: 19:33 BP 141 / 89; Pulse 85; Resp 14; Temp 99.2; Pulse Ox 93% on R/A; Weight 64.86 kg; Height vc1 6 ft. 1 in. ; Pain 0/10; 20:00 BP 115 / 71; Pulse 83; Resp 16; cm10 21:33 BP 121 / 82; Pulse 77; Resp 18; Pulse Ox 98% on R/A; cm10 22:41 BP 128 / 71; Pulse 69; Resp 15; Temp 99.2; Pulse Ox 99% ; Pain 0/10; bm8 19:33 Body Mass Index 18.87 (64.86 kg, 185.42 cm) vc1 19:33 Pain Scale: Adult vc1 22:41 Pain Scale: Adult bm8 Abel Coma Score: 22:41 Eye Response: spontaneous(4). Motor Response: obeys commands(6). Verbal Response: bm8 oriented(5). Total: 15. MDM: 19:26 Medical Screening Exam initiated sp3 19:59 Data reviewed: vital signs, nurses notes, old medical records, lab test result(s). ED sp3 course: 73-year-old male with PMH above now with altered mental status. Differential diagnosis includes electrolyte abnormality, hyponatremia, UTI, pneumonia, other infection, TIA/CVA spectrum, other intracranial pathology, among others. Workup will include CT scan of the head, labs, UA, swabs and general supportive care. Disposition pending workup and patient course. Patient was signed out to Dr. Barnes [facility] physician for final reevaluation and disposition.. 20:50 ED course: CBC shows leukocytosis. Metabolic profile shows slight hyponatremia with a ec2 sodium of 128, renal dysfunction with creatinine 1.39 and GFR 54. Lactic acid within normal ranges. Chest x-ray shows possible right-sided pneumonia. Will add on antibiotic coverage and admit for altered mental status, pneumonia . 21:09 ED course: EKG independently reviewed and interpreted by me, shows normal sinus rhythm, ec2 rate of 82, no acute ST segment elevations, intervals are nonactionable.. 01/03 19:08 Order name: Blood Culture Adult (2) sp3 01/03 19:08 Order name: CBC with Diff; Complete Time: 20:49 sp3 01/03 19:08 Order name: CMP sp3 01/03 19:08 Order name: Lactate w/ 2H reflex if indic.; Complete Time: 20:49 sp3 01/03 19:08 Order name: Protime (+inr); Complete Time: 20:49 sp3 01/03 19:08 Order name: Ptt, Activated; Complete Time: 20:49 sp3 01/03 19:08 Order name: Urinalysis w/ reflexes sp3 01/03 19:08 Order name: Troponin High Sensitivity sp3 01/03 20:00 Order name: Flu sp3 01/03 20:00 Order name: SARS RAPID; Complete Time: 21:10 sp3 01/03 22:02 Order name: Basic Metabolic Panel EDMS 01/03 22:02 Order name: CBC with Automated Diff EDMS 01/03 22:02 Order name: Lactate w/ 2H reflex if indic. EDMS 01/03 22:02 Order name: Magnesium EDMS 01/03 22:02 Order name: NT PRO-BNP EDMS 01/03 22:02 Order name: Phosphorus EDMS 01/03 22:02 Order name: Thyroid Stimulating Hormone EDMS 01/03 22:02 Order name: Urinalysis w/ reflexes EDMS 01/03 22:02 Order name: Lipid Profile EDMS 01/03 22:02 Order name: Lipid Profile EDMS 01/03 22:03 Order name: Sputum Culture EDMS 01/03 22:04 Order name: Procalcitonin EDMS 01/03 22:05 Order name: C-Reactive Protein EDMS 01/03 19:08 Order name: Chest Single View XRAY; Complete Time: 20:49 sp3 01/03 19:08 Order name: CT Head Brain wo Cont; Complete Time: 20:59 sp3 01/03 22:04 Order name: CT CHEST,ABD W/WO EDMS 01/03 19:08 Order name: EKG; Complete Time: 19:09 sp3 01/03 22:02 Order name: CONS Physician Consult EDMS 01/03 19:08 Order name: Cardiac monitoring; Complete Time: 20:04 sp3 01/03 19:08 Order name: EKG - Nurse/Tech; Complete Time: 21:12 sp3 01/03 19:08 Order name: IV Saline Lock - Large Bore; Complete Time: 20:04 sp3 01/03 19:08 Order name: Labs collected and sent; Complete Time: 20:04 sp3 01/03 19:08 Order name: O2 Per Protocol; Complete Time: 20:04 sp3 01/03 19:08 Order name: O2 Sat Monitoring; Complete Time: 20:04 sp3 01/03 19:08 Order name: Vital Signs; Complete Time: 20:04 sp3 Administered Medications: 21:04 CANCELLED (Physician Discretion): [id number] mg IVPB once over 1 hrs; (mix in 250 ec2 mL NS) : Drug: Rocephin IV 1 grams IV at calculated rate once; Given slow IV push per pharmacy cm10 instructions Route: IV; Rate: calculated rate; Site: left antecubital; 21:51 Follow up: Response: No adverse reaction; IV Status: Completed infusion; IV Intake: [id number] 21:30 Drug: Acetaminophen PO 1000 mg PO once Route: PO; cm10 21:51 Follow up: Response: No adverse reaction cm10 21:30 Drug: NS 0.9% IV 1000 ml IV at 1000 ml once; to be given as a bolus over 60 minutes cm10 Route: IV; Rate: 1000 ml; Site: left antecubital; 22:42 Follow up: Response: No adverse reaction; IV Status: Completed infusion; IV Intake: bm8 1000ml 21:51 Drug: vancoMYCIN IVPB 1 grams IVPB once over 2 hrs Route: IVPB; Infused Over: 2 hrs; cm10 Site: left antecubital; 22:42 Follow up: Response: No adverse reaction; IV Status: Infusion continued upon admission bm8 Disposition Summary: 01/04/24 21:00 Hospitalization Ordered Notes: Hospitalization Status: Inpatient Admission ec2 Provider: Deshawn Smith ec2 Location: Telemetry/[facility] (Inpatient) ec2 Condition: Stable ec2 Problem: new ec2 Symptoms: are unchanged ec2 Bed/Room Type: Standard ec2 Room Assignment: 211(01/04/24 22:09) rv1 Diagnosis - Pneumonia, unspecified organism ec2 - Altered mental status, unspecified ec2 - Leukocytosis ec2 - Hypo-osmolality and hyponatremia ec2 Forms: - Medication Reconciliation Form ec2 - SBAR form ec2 - Leadership Thank You Letter ec2 Signatures: Dispatcher [employer] Bry Payne MD MD sp3 Spring Duval RN RN vc1 Kathleen Lorenzo rv1 Rosalba Hudsno RN RN cm10 Leander Barnes MD MD ec2 Phu Lepe RN bm8 Corrections: (The following items were deleted from the chart) 21:04 20:50 AZITHromycin IVPB 500 mg IVPB once over 1 hrs; (mix in 250 mL NS) ordered. ec2 ec2 22:09 21:00 ec2 rv1
--- NOTE | 2024-01-04 21:01 | ER ---
Nurse's Notes [facility] Name: Jerad Minor Age: 73 yrs Sex: Male : 1950 Arrival Date: 01/04/2024 Time: 18:40 Bed 2 Private MD: Alon Gray Diagnosis: Pneumonia, unspecified organism;Altered mental status, unspecified;Leukocytosis;Hypo-osmolality and hyponatremia Presentation: 01/03 19:33 Chief complaint: Brother in law states that pt was here 12/09 dx with PNA. Since then he vc1 has been having intermittent periods of confusion. He is tired all the time and only wants to sleep. Has no appetite and not drinking water. Coronavirus screen: Client denies travel out of the [place] in the last 14 days. At this time, the client does not indicate any symptoms associated with coronavirus-19. Ebola Screen: Patient negative for fever greater than or equal to 101.5 degrees Fahrenheit, and additional compatible Ebola Virus Disease symptoms Patient denies exposure to infectious person. Patient denies travel to an Ebola-affected area in the 21 days before illness onset. No symptoms or risks identified at this time. Initial Sepsis Screen: Does the patient meet any 2 criteria? No. Patient's initial sepsis screen is negative. Does the patient have a suspected source of infection? No. Patient's initial sepsis screen is negative. Risk Assessment: Do you want to hurt yourself or someone else? Patient reports no desire to harm self or others. Onset of symptoms is unknown. 19:33 Method Of Arrival: Wheelchair vc1 19:33 Acuity: QUINTON 3 vc1 Triage Assessment: 19:39 General: Appears in no apparent distress. comfortable, slender, well groomed, well vc1 developed, Behavior is calm, cooperative, appropriate for age. Pain: Denies pain. EENT: No deficits noted. No signs and/or symptoms were reported regarding the EENT system. Neuro: Level of Consciousness is awake, obeys commands, lethargic, Oriented to person, place, Unable to give year and unable to name the president. Reports weakness. Cardiovascular: Capillary refill < 3 seconds Patient's skin is warm and dry. Respiratory: Airway is patent Respiratory effort is even, unlabored, Respiratory pattern is regular, symmetrical. GI: Abdomen is flat, non-distended. : No deficits noted. No signs and/or symptoms were reported regarding the genitourinary system. Derm: Skin is intact, is healthy with good turgor, Skin is dry, Skin is normal, Skin temperature is warm. Musculoskeletal: Circulation, motion, and sensation intact. shuffling gait. Historical: - Allergies: 19:35 No Known Allergies; vc1 - Home Meds: 19:35 sertraline 150 mg oral capsule daily [Active]; Lipitor 40 mg Oral tab 1 tab once daily vc1 [Active]; quetiapine 50 mg Oral tablet 1 tab every day at bedtime [Active]; Ecotrin 81 mg Oral 1 tab daily [Active]; metoprolol tartrate 50 mg Oral tablet 1 tab 2 times per day [Active]; levothyroxine 25 mcg oral capsule daily [Active]; pantoprazole 40 mg oral tablet, delayed release (enteric coated) daily [Active]; - PMHx: 19:35 arterial blockage; ID; Mycobacterium intracellulare infection of the lung; vc1 - PSHx: 19:35 Cardiac Bypass (Mycobacterium intracellulare infection of the lung); vc1 - Immunization history:: Client reports receiving the 2nd dose of the Covid vaccine, Flu vaccine is not up to date. - Infectious Disease History:: Denies. - Social history:: Smoking status: Patient/guardian denies using tobacco, but has a distant history of tobacco abuse. Screenin:00 [facility] ED Fall Risk Assessment (Adult) History of falling in the last 3 months, cm10 including since admission No falls in past 3 months (0 pts) Confusion or Disorientation Yes (5 pts) Intoxicated or Sedated No (0 pts) Impaired Gait No (0 pts) Mobility Assist Device Used No (0 pt) Altered Elimination No (0 pt) Score/Fall Risk Level 3 or more points = High Risk Oriented to surroundings, Maintained a safe environment, Hourly rounding (assess needs \T\ fall precautionary measures) done. Abuse screen: Denies threats or abuse. Denies injuries from another. Nutritional screening: No deficits noted. Tuberculosis screening: No symptoms or risk factors identified. Assessment: 20:00 General: Appears in no apparent distress. comfortable, Behavior is calm, cooperative. cm10 Neuro: No deficits noted. Level of Consciousness is awake, confused, Oriented to person, place, situation. Cardiovascular: No deficits noted. Patient's skin is warm and dry. Respiratory: No deficits noted. Airway is patent Respiratory effort is even, unlabored, Respiratory pattern is regular, symmetrical. 21:32 Reassessment: Patient appears in no apparent distress at this time. No changes from cm10 previously documented assessment. Patient and/or family updated on plan of care and expected duration. Pain level reassessed. 22:41 Reassessment: Patient appears in no apparent distress at this time. No changes from bm8 previously documented assessment. Patient and/or family updated on plan of care and expected duration. Pain level reassessed. Patient states feeling better. Patient states symptoms have improved. Vital Signs: 19:33 BP 141 / 89; Pulse 85; Resp 14; Temp 99.2; Pulse Ox 93% on R/A; Weight 64.86 kg; Height vc1 6 ft. 1 in. ; Pain 0/10; 20:00 BP 115 / 71; Pulse 83; Resp 16; cm10 21:33 BP 121 / 82; Pulse 77; Resp 18; Pulse Ox 98% on R/A; cm10 22:41 BP 128 / 71; Pulse 69; Resp 15; Temp 99.2; Pulse Ox 99% ; Pain 0/10; bm8 19:33 Body Mass Index 18.87 (64.86 kg, 185.42 cm) vc1 19:33 Pain Scale: Adult vc1 22:41 Pain Scale: Adult bm8 [place] Coma Score: 22:41 Eye Response: spontaneous(4). Motor Response: obeys commands(6). Verbal Response: bm8 oriented(5). Total: 15. ED Course: 18:40 Patient arrived in ED. am2 18:41 Alon Gray is Private Physician. am2 19:09 Bry Hicks MD is Attending Physician. sp3 19:22 Rosalba Hudson, TYLER is Primary Nurse. cm10 19:35 Triage completed. vc1 19:39 Arm band placed on right wrist. vc1 19:55 Initial lab(s) drawn, by me, sent to lab. First set of blood cultures drawn by me. ls5 Inserted saline lock: 20 gauge in left antecubital area, using aseptic technique. Blood collected. Flushed with 10 mL NS. 20:02 Attending Physician role handed off by Bry Hicks MD ec2 20:02 Leander Barnes MD is Attending Physician. ec2 20:04 Blood Culture Adult (2) Sent. ls5 20:05 Patient has correct armband on for positive identification. Bed in low position. Call ls5 light in reach. Side rails up X2. Pillow given. Head of bed elevated. 20:05 CBC with Diff Sent. ls5 20:05 CMP Sent. ls5 20:05 Lactate w/ 2H reflex if indic. Sent. ls5 20:05 Protime (+inr) Sent. ls5 20:05 Ptt, Activated Sent. ls5 20:06 Chest Single View XRAY In Process Unspecified. EDMS 20:12 CT Head Brain wo Cont In Process Unspecified. EDMS 20:49 SARS RAPID Sent. dd2 20:49 Flu Sent. dd2 21:00 Deshawn Smith MD is Hospitalizing Provider. ec2 22:41 Provided Education on: need for admission. Client placed on continuous cardiac and bm8 pulse oximetry monitoring. NIBP monitoring applied. traffic monitor specialist on. Pulse ox on. NIBP on. 22:41 No provider procedures requiring assistance completed. Patient admitted, IV remains in bm8 place. Patient maintains SpO2 saturation greater than 95% on room air. Administered Medications: 21:04 CANCELLED (Physician Discretion): [id number] mg IVPB once over 1 hrs; (mix in 250 ec2 mL NS) 21:29 Drug: Rocephin IV 1 grams IV at calculated rate once; Given slow IV push per pharmacy cm10 instructions Route: IV; Rate: calculated rate; Site: left antecubital; 21:51 Follow up: Response: No adverse reaction; IV Status: Completed infusion; IV Intake: [id number] 21:30 Drug: Acetaminophen PO 1000 mg PO once Route: PO; cm10 21:51 Follow up: Response: No adverse reaction cm10 21:30 Drug: NS 0.9% IV 1000 ml IV at 1000 ml once; to be given as a bolus over 60 minutes cm10 Route: IV; Rate: 1000 ml; Site: left antecubital; 22:42 Follow up: Response: No adverse reaction; IV Status: Completed infusion; IV Intake: bm8 1000ml 21:51 Drug: vancoMYCIN IVPB 1 grams IVPB once over 2 hrs Route: IVPB; Infused Over: 2 hrs; cm10 Site: left antecubital; 22:42 Follow up: Response: No adverse reaction; IV Status: Infusion continued upon admission bm8 Medication: 20:00 VIS not applicable for this client. cm10 Intake: 21:51 IV: 50ml; Total: 50ml. cm10 22:42 IV: 1000ml; Total: 1050ml. bm8 Outcome: 21:00 Decision to Hospitalize by Provider. ec2 22:41 Admitted to Med/surg accompanied by nurse, via stretcher, room 211, with chart, bm8 22:41 Condition: stable 22:41 Instructed on the need for admit, Demonstrated understanding of instructions, follow-up care, medications, 22:58 Patient left the ED. bm8 Signatures: Dispatcher [employer] EDMS Cristina Viveros am2 Bry Hicks MD MD sp3 Spring Duval, RN RN vc1 Saeed Leroy ls5 Rosalba Hudson RN RN cm10 Leander Barnes MD MD ec2 Phu Lepe RN RN bm8 STEPHANIE BAILEY RN RN dd2
[2024-01-04 21:04] LABS: SARS-CoV-2 Antigen CONTROL BLUE LINE VIS/BG OK; SARS-CoV-2 Antigen Rapid Res Negative (Negative)
[2024-01-04] MEDS ORDERED: CEFTRIAXONE 1000 MG/VIAL ONE (21:14)
[2024-01-04] MEDS ORDERED: VANCOMYCIN 1 GM/VIAL ONE (21:14)
[2024-01-04] MEDS ORDERED: ACETAMINOPHEN 500 MG TAB ONE (21:15)
[2024-01-04] MEDS ORDERED: NA CHLORIDE 0.9% 1,000 ML ONE (21:15)
[2024-01-04] MEDS ORDERED: NA CHLORIDE 0.9% 50 ML ONE (21:15)
[2024-01-04] MEDS ORDERED: NA CHLORIDE 0.9% 250 ML ONE (21:15)
[2024-01-04] MEDS ORDERED: ZOLPIDEM TARTRATE 5 MG TABLET PO PRN (21:55)
[2024-01-04] MEDS ORDERED: ACETAMINOPHEN 325 MG TABLET PO PRN (21:55)
[2024-01-04] MEDS ORDERED: ALBUTEROL INHALER 200 PUFF/6.7 GM IH PRN (22:05)
--- NOTE | 2024-01-04 22:14 | P.HP ---
Certification for Inpatient With expected LOS: <2 Midnights Practitioner: I am a practitioner with admitting privileges, knowledge of patient current condition, hospital course, and medical plan of care. Services: Services provided to patient in accordance with Admission requirements found in Title 42 Section 412.3 of the Code of Federal Regulations Patient History Date of Service: 01/04/24 Reason for admission: pnemonia History of Present Illness: 73-year-old man presented to the emergency department with altered mental status and productive cough for unknown amount of days. The patient is alert and oriented x 2 (name and place only). He is a poor historian-appears acutely confused, and will answer some but not all questions. The patient states he has a past medical history of skin cancer (unknown remission status), lung infection (unknown if inactive), depression, hypertension, HDL, and hypothyroidism. He is a former smoker but quit in 1983. Head CT was performed and revealed no abno rmalities. However, chest x-ray performed revealed patchy airspaces in right lower lung suggestive of pneumonia. The patient's curb 65 score is 3. The patient was giving vancomycin and ceftriaxone after blood cultures x 2 was collected in the emergency department. Allergies No Known Allergies Allergy (Unverified 01/06/17 09:19) Home medications list reviewed: Yes Home Medications: Albuterol Sulfate [Proair Hfa] 8.5 gm IH TID PRN #1 [email or web address] 08/04/17 Aspirin [Ecotrin 81 MG] 81 mg PO DAILY 08/04/17 Atorvastatin Calcium [Lipitor] 40 mg PO BEDTIME 08/04/17 Benzonatate [Tessalon Perle*] 200 mg PO TID PRN #30 cap 08/04/17 Cefuroxime [Ceftin*] 500 mg PO BID #40 tab 08/04/17 Cholecalciferol (Vitamin D3) [Vitamin D 1000 Iu Tab*] 1,000 unit PO DAILY 08/04/17 Folic Acid 1 mg PO DAILY 08/04/17 Metoprolol Succinate 12.5 mg PO BID 08/04/17 Quetiapine [Seroquel*] 50 mg PO BEDTIME 08/04/17 Sertraline [Zoloft*] 50 mg PO DAILY 08/04/17 - Past Medical/Surgical History Diabetic: No -: CAD -: Mycobacterium intracellulare infection of the lung -: Squamous cell CA -: depression -: HTN -: HDL -: hypothryroidism -: CABG -: cataract sx [id number] -: Bilateral Hernia -: Cardiac Stent - Family History Father -: Heart disease, Cancer Notes: abdominal aneurysm Mother -: Hypertension, Other (see notes) Notes: Dementia,Arthritis - Social History Smoking Status: Former smoker (quit in 1983) Alcohol use: No CD- Drugs: No Caffeine use: Yes Review of Systems General: Weakness Respiratory: Cough, Shortness of Breath, Sputum Cardiovascular: Chest Pain Gastrointestinal: No Distention Neurological: Confusion Physical Examination - Vital Signs Temperature: 99 F Blood Pressure: 121/82 Pulse: 77 Respirations: 18 Pulse Ox (%): 94 - Physical Exam General: Alert, Oriented x2 HEENT: Atraumatic, Normocephalic Neck: JVD not distended Respiratory: Crackles/rales, Other (dullness to percussion in right lower lung quadrant) Cardiovascular: No gallops, No rubs, No murmurs Gastrointestinal: Normal bowel sounds Musculoskeletal: No clubbing, No tenderness Neurological: Normal strength at 5/5 x4 extr, Sensation intact - Studies Laboratory Data (last 24 hrs) 01/04/24 01/04/24 01/04/24 19:55 19:55 19:55 WBC 19.50 H Hgb 12.9 L Hct 39.3 L Plt Count 337 PT 13.9 H INR 1.25 APTT 27.3 Sodium 128 L Potassium 4.1 BUN 20 H Creatinine 1.39 H Glucose 133 H Total Bilirubin 0.9 AST 24 ALT 37 Alkaline Phosphatase 88 Microbiology Data (last 24 hrs): 01/04/24 20:40 Nasopharnyx Influenza Type A Antigen Screen - Final 01/04/24 20:40 Nasopharnyx Influenza Type B Antigen Screen - Final Assessment and Plan - Problems (Diagnosis) (1) Pneumonia Onset Date: 08/04/17 Current Visit: No Status: Acute Qualifiers: Laterality: right Lung location: lower lobe of lung - Plan Pneumonia- Admit to floor with telemetry Ceftriaxone twice daily plus azithromycin once daily (patient coming from home) CT chest ordered to rule out obstruction Oxygen via nasal cannula Blood cultures, urine cultures, sputum cultures pending Lab work pending Pulmonary consult ordered - Advance Directives Does patient have a Living Will: No Does patient have a Durable POA for Healthcare: No - Code Status/Comfort Care Code Status: Full Code
[2024-01-05] MEDS: AZITHROMYCIN IV 500 MG in NA CHLORIDE 0.9% 250 ML IVPB SCH (01:06)
[2024-01-05] MEDS: HEPARIN 5000 UNIT/ML 1 ML VIAL SQ SCH (01:07)
[2024-01-05 01:54] LABS: Sqamous Epithelial <5 /HPF (None Seen); Urine Bacteria None Seen /HPF (<20); Urine Bilirubin NEGATIVE (Negative); Urine Blood Negative (Negative); Urine Clarity Clear (Clear); Urine Color Yellow (Yellow); Urine Culture Reflex Order NOT NEEDED; Urine Glucose NEGATIVE (Negative); Urine Ketones NEGATIVE (Negative); Urine Microscopic Reflex YN ORDER UMIC; Urine Mucus 3+ /HPF (None Seen); Urine Nitrite NEGATIVE (Negative); Urine Protein 1+ (Negative); Urine RBC <5 /HPF (None Seen); Urine Urobilinogen Normal (Normal); Urine WBC <5 /HPF (<5); Urine pH 6.5 (5.0-7.0)
[2024-01-05 01:55] LABS: Specific Gravity > 1.030 (1.005-1.030)
[2024-01-05 04:43] VITALS: BMI 20.8
[2024-01-05 05:51] LABS: Absolute Lymphocytes (CBC) 1.9 K/uL (0.7-4.9); Absolute Monocytes 1.7 K/uL (0.1-1.3); Absolute Neutrophil 12.5 K/uL (1.8-8.0); Eosinophils % 0.2 % (0-4.4); Hematocrit 34.5 % (39.6-49.0); Hemoglobin 11.7 g/dL (13.6-17.9); MCH 29.3 pg (27.0-35.0); MCV 86.2 fL (80-100); MPV 7.5 fL (7.6-11.3); Monocytes % 10.4 % (3.3-12.3); Neutrophils % 77.4 % (41.7-73.7); Platelets 279 thou/uL (152-406); RBC Red Blood Cell Count 4.01 M/uL (4.33-5.43); Red Cell Distribution Width 16.5 % (12.1-15.2)
[2024-01-05 06:24] LABS: Anion Gap 7.6 mEq/L (5.0-15.0); Magnesium 1.8 mg/dL (1.6-2.4); Phosphorus 2.9 mg/dL (2.5-4.9); Potassium 4.6 mEq/L (3.5-5.1); Thyroid Stimulating Hormone 3.63 uIU/mL (0.358-3.740)
--- NOTE | 2024-01-05 07:48 | RAD REPORT ---
EXAM; Thorax W/ Con CLINICAL INDICATION: Chest pain TECHNIQUE: Routine CT scan of the chest with 100 cc Isovue-370 intravenous contrast. One or more of t he following dose reduction techniques were used: Automated exposure control, adjustment of the mA and/or kV according to patient size, and/or iterative reconstruction. Unless otherwise specified, inc idental findings do not require dedicated imaging follow-up. [id number]. COMPARISON: December 10, 2023 FINDINGS: Marked tree-in-bud opacities right lower lobe have progressed since the prior exam. Mild to moderate tree-in-bud opacities lingula. Bronchiectasis is present. Several cavities right lung. Mild to moderate mediastinal and hilar lymphadenopathy likely reactive. No pleural effusion. No pericardial effusion.. Cholelithiasis IMPRESSION: Marked tree-in-bud opacities right lower lobe. Mild tree in bud opacities lingula. 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
[2024-01-05] MEDS: CEFTRIAXONE 1,000 MG in NA CHLORIDE 0.9% 50 ML IVPB SCH (09:27)
--- NOTE | 2024-01-05 11:47 | P.CNS ---
Date of Consult: 01/05/24 Reason for Consult: Pneumonia Chief Complaint: Expressive dysphasia History of Present Illness: Patient is 73 years of age to the hospital as he had difficulty speaking he recent history of cough congestions that have abated going on for about a week has any pulmonary complaint was found to have right lower lobe pneumonia and is never smoked he of coronary artery disease Allergies No Known Allergies Allergy (Unverified 01/06/17 09:19) Home Medications: Albuterol Sulfate [Proair Hfa] 8.5 gm IH TID PRN #1 hfa.aer.[id number] 08/04/17 Aspirin [Ecotrin 81 MG] 81 mg PO DAILY 08/04/17 Atorvastatin Calcium [Lipitor] 40 mg PO BEDTIME 08/04/17 Benzonatate [Tessalon Perle*] 200 mg PO TID PRN #30 cap 08/04/17 Cefuroxime [Ceftin*] 500 mg PO BID #40 tab 08/04/17 Cholecalciferol (Vitamin D3) [Vitamin D 1000 Iu Tab*] 1,000 unit PO DAILY 08/04/17 Folic Acid 1 mg PO DAILY 08/04/17 Metoprolol Succinate 12.5 mg PO BID 08/04/17 Quetiapine [Seroquel*] 50 mg PO BEDTIME 08/04/17 Sertraline [Zoloft*] 50 mg PO DAILY 08/04/17 - Past Medical/Surgical History Diabetic: No -: CAD -: Mycobacterium intracellulare infection of the lung -: Squamous cell CA -: depression -: HTN -: HDL -: hypothryroidism -: CABG -: cataract sx [id number] -: Bilateral Hernia -: Cardiac Stent - Family History Father Medical History: Heart disease, Cancer Notes: abdominal aneurysm Mother Medical History: Hypertension, Other (see notes) Notes: Dementia,Arthritis - Social History Smoking Status: Former smoker Alcohol use: Yes CD- Drugs: No Caffeine use: No Place of Residence: Home Review of Systems 10-point ROS is otherwise unremarkable General: Weakness Physical Examination Temp Pulse Resp BP Pulse Ox 97.3 F 76 18 147/80 H 93 01/05/24 08:00 01/05/24 08:00 01/05/24 08:00 01/05/24 08:00 01/05/24 08:00 General: Alert, Oriented x3 Neck: Supple Respiratory: Crackles/rales Cardiovascular: No edema (Callus on the right lower lobe), Regular rate/rhythm Gastrointestinal: Normal bowel sounds, Soft and benign Musculoskeletal: No clubbing, No swelling Laboratory Data (last 24 hrs) 01/04/24 01/04/24 01/04/24 19:55 19:55 19:55 WBC 19.50 H Hgb 12.9 L Hct 39.3 L Plt Count 337 PT 13.9 H INR 1.25 APTT 27.3 Sodium 128 L Potassium 4.1 BUN 20 H Creatinine 1.39 H Glucose 133 H Total Bilirubin 0.9 AST 24 ALT 37 Alkaline Phosphatase 88 - Problems (1) Pneumonia Onset Date: 08/04/17 Current Visit: No Status: Acute Plan: Patient is 73 years of age of poor historian has some difficulty speaking admitted with right lower lobe pneumonia preceding history of cough congestion CT scan shows infiltrate in the right lower lobe labs show an elevated white count which has been declining procalcitonin level is elevated vital signs oxygenation satisfactory compared with his previous x-ray looks like he has got a progressive pneumonia on the right side worsening in the right lower lobe continue with levofloxacin cultures for AFB history of Mycobacterium avium infection chronic right upper lobe changes Qualifiers: Laterality: right Lung location: lower lobe of lung (2) Dysphasia Current Visit: Yes Status: Acute Plan: Patient has some expressive dysphasia/check ultrasound of his carotids CT scan shows chronic microvascular changes
[2024-01-05] MEDS: ASPIRIN EC 81 MG TAB PO SCH (12:11)
[2024-01-05] MEDS: levoFLOXacin 750 MG TAB PO SCH (12:11)
--- NOTE | 2024-01-05 13:34 | RAD REPORT ---
EXAMINATION: CAROTID DUPLEX ULTRASOUND CLINICAL INDICATION: Ro Carotid artery disease TECHNIQUE: Real-time grayscale, color flow and spectral Doppler sonographic images were obtained of t he extracranial carotid system using a linear transducer. COMPARISON: 01/04/2024, 12/29/2023 FINDINGS: RIGHT: Common carotid artery: 108 cm/s Internal carotid artery: 88 cm/s External carotid artery: 76 cm/s Right ICA/CCA ratio: 0.8 Plaque mild hard plaque at the carotid bulb. Vertebral artery Antegrade LEFT: Common carotid artery: 130 cm/s Internal carotid artery: 82 cm/s External carotid artery: Poorly visualized Left ICA/CCA ratio: 0.6 Plaque mild hard plaque at the carotid bulb Vertebral artery Antegrade IMPRESSION: No hemodynamically significant stenosis (greater than 50%) within the extracranial internal carotid a rteries. Mild hard plaque is seen involving both carotid bulbs. The degrees of stenosis, if any, are quantified according to the consensus statement of the Society o f Radiologists in Ultrasound (SRUS). Please refer to Artemio E, Amaduo C, Shirlene G et al. Carotid Artery Stenosis: Waller-Scale and Doppler US Diagnosis--Society of Radiologists in Ultrasound Consensus Conference. Radiology. 2003;229(2):340-6.
--- NOTE | 2024-01-05 14:47 | EKG ---
Test Date: 2024-01-04 Test Time: 21:02:42 Financial Management: JIMMIE MEASUREMENT RESULTS: Intervals: Rate: 82 GA: 152 QRSD: 84 QT: 370 QTc: 432 [place]: P: 70 GA: 152 QRS: 45 T: 87 INTERPRETIVE STATEMENTS: Normal sinus rhythm Septal infarct, age undetermined Abnormal ECG Compared to ECG 12/29/2023 13:13:56 Myocardial infarct finding now present Sinus bradycardia no longer present Electronically Signed On 01-05-24 14:45:47 CDT by Augustin Zaman
--- NOTE | 2024-01-05 15:26 | P.PN ---
Subjective Date of Service: 01/05/24 Chief Complaint: Expressive dysphasia Patient reports generalized weakness. He denies any fever He admitted to cough productive of yellow to brown sputum. He denies chest pain. Physical Examination - Vital Signs Temperature: 98.2 F Blood Pressure: 149/88 Pulse: 78 Respirations: 18 Pulse Ox (%): 91 - Studies Laboratory Data (last 24 hrs) 01/04/24 01/04/24 01/04/24 19:55 19:55 19:55 WBC 19.50 H Hgb 12.9 L Hct 39.3 L Plt Count 337 PT 13.9 H INR 1.25 APTT 27.3 Sodium 128 L Potassium 4.1 BUN 20 H Creatinine 1.39 H Glucose 133 H Total Bilirubin 0.9 AST 24 ALT 37 Alkaline Phosphatase 88 Microbiology Data (last 24 hrs): 01/04/24 19:55 Blood - Blood Anaerobic Blood Culture - Final 01/04/24 21:33 Blood - Blood Anaerobic Blood Culture - Final 01/04/24 20:40 Nasopharnyx Influenza Type A Antigen Screen - Final 01/04/24 20:40 Nasopharnyx Influenza Type B Antigen Screen - Final Assessment And Plan - Plan Physical examination General: Alert and oriented x3, NAD, HEENT: Conjunctiva not pale, anicteric sclera Neck: Supple, no elevated JVD Heart: Heart sounds 1 and 2 normal, regular rhythm, normal rate, no pedal edema Lungs: Bilateral crackles, adequate breath sounds bilaterally, mild scattered rhonchi. Abdomen: Soft, nondistended, nontender, normal bowel sounds. Extremities: No tenderness, no deformity Skin: Normal skin turgor, no rash, no nodules or ulcers. Neuro: No focal motor deficit. Normal speech. Psychiatry: Normal mood, no agitation. Assessment and plan Pneumonia Bronchiectasis Chronic interstitial lung disease History of MAC Leukocytosis. Chest CT demonstrated tree-in-bud infiltrates. Reported expressive aphasia. Speech therapy consult for swallow evaluation Pulmonary input appreciated. IV antibiotics transition to oral Levaquin. Chest physiotherapy. Bronchodilators. Monitor CBC to follow leukocytosis. Hypertension Resume home antihypertensive-metoprolol. Coronary artery disease Continue aspirin and statin DVT prophylaxis: Heparin SQ Advanced directive: Full code
[2024-01-05] MEDS: ATORVASTATIN 40 MG TAB PO SCH (21:10)
[2024-01-05] MEDS: METOPROLOL XL 25 MG TAB PO SCH (21:10)
[2024-01-05] MEDS: ONDANSETRON 4 MG (ODT) TAB PO PRN (21:14)
[2024-01-05] MEDS ORDERED: METOCLOPRAMIDE 10 MG/2mL INJ IV PRN (22:56)
[2024-01-05] MEDS: FAMOTIDINE 20 MG/2 ML VIAL IV PRN (23:11)
[2024-01-06 06:01] LABS: Absolute Basophils 0.1 K/uL (0-0.5); Absolute Eosinophils 0.1 K/uL (0-0.5); Absolute Lymphocytes (CBC) 2.1 K/uL (0.7-4.9); Absolute Monocytes 1.5 K/uL (0.1-1.3); Absolute Neutrophil 11.8 K/uL (1.8-8.0); Basophils % 0.5 % (0-1.3); Eosinophils % 0.3 % (0-4.4); Hematocrit 37.4 % (39.6-49.0); Hemoglobin 12.9 g/dL (13.6-17.9); Lymphocytes % 13.5 % (15.3-44.8); MCH 29.6 pg (27.0-35.0); MCHC 34.4 g/dL (32.0-36.0); MCV 86.1 fL (80-100); Monocytes % 9.8 % (3.3-12.3); Neutrophils % 75.9 % (41.7-73.7); Platelets 358 thou/uL (152-406); RBC Red Blood Cell Count 4.35 M/uL (4.33-5.43); Red Cell Distribution Width 16.5 % (12.1-15.2)
[2024-01-06 06:03] LABS: Anion Gap 8.5 mEq/L (5.0-15.0); Potassium 4.5 mEq/L (3.5-5.1)
[2024-01-06] MEDS: NACHLORIDE 0.45% 1,000 ML IV SCH (07:30)
[2024-01-06] MEDS: VITAMIN D 1000 UNIT TAB PO SCH (09:00)
[2024-01-06] MEDS: SERTRALINE HCL 50 MG TAB PO SCH (09:55)
[2024-01-06] MEDS: ASPIRIN EC 81 MG TAB PO SCH (09:56)
--- NOTE | 2024-01-06 12:39 | P.PN ---
Subjective Date of Service: 01/06/24 Chief Complaint: Progressive pneumonia Subjective: Improving (Patient is improving denies any fever chills has a productive cough denies any weight loss history of Mycobacterium AVM infection treated years ago speech has improved somewhat) Review of Systems Unremarkable General: Weakness Physical Examination - Vital Signs Temperature: 97.9 F Blood Pressure: 140/84 Pulse: 85 Respirations: 16 Pulse Ox (%): 93 - Physical Exam General: Alert, Oriented x3 Respiratory: Clear to auscultation bilaterally, Crackles/rales (Right lower lobe) Cardiovascular: No edema, Regular rate/rhythm, Normal S1 S2 - Studies Microbiology Data (last 24 hrs): 01/04/24 21:33 Blood - Blood Anaerobic Blood Culture - Final 01/04/24 19:55 Blood - Blood Anaerobic Blood Culture - Final Assessment And Plan - Current Problems (Diagnosis) (1) Pneumonia Onset Date: 08/04/17 Current Visit: No Status: Acute Plan: Patient is 73 years of age admitted with expressive dysphasia. This seems to be improving over he appears to have progressive changes in his right lung denies any fever chills or weight loss he does have a productive cough serial x-rays compared to send of at least 3 sputum's for AFB and culture continue with p.o. levofloxacin patient's white count is declining labs reviewed mild hyponatremia patient's vital signs oxygenation stable discharge a.m. after sputum cultures follow-up with me next week Qualifiers: Laterality: right Lung location: lower lobe of lung (2) Dysphasia Current Visit: Yes Status: Acute Plan: Patient has some expressive dysphasia/check ultrasound of his carotids CT scan s hows chronic microvascular changes
--- NOTE | 2024-01-06 14:08 | P.PN ---
Date of Service: 01/06/24 Subjective Awake sitting in the chair, conversing well Needing two sputum cultures prior to discharge if possible PT to evaluate mobility SW consulted for HH needs No new complaints ROS 10 point ROS as noted above, otherwise negative Physical examination General: AAO x3, NAD, Conversing well HEENT: Conjunctiva not pale, anicteric sclera Neck: Supple, no elevated JVD Heart: S1 S2 present, RRR, no pedal edema Lungs: Bilateral crackles, adequate breath sounds bilaterally, mild scattered rhonchi. Abdomen: Soft and benign on palpation, ND/NT, normal bowel sounds. Extremities: No tenderness, no deformity Skin: Normal skin turgor, no rash Neuro: No focal motor deficit. Normal speech. Psychiatry: Normal mood, no agitation. Vitals Reviewed Problem list Pneumonia Bronchiectasis Chronic interstitial lung disease History of MAC Leukocytosis. Hypertension Coronary artery disease Decreased PO intake Assessment and Plan Pneumonia Bronchiectasis Chronic interstitial lung disease History of MAC Leukocytosis -Chest CT demonstrated tree-in-bud infiltrates -Reported expressive aphasia -Speech therapy consult for swallow evaluation -Pulmonary input appreciated -Chest physiotherapy -Bronchodilators -Monitor CBC to follow leukocytosis. -Dr Muñoz consulted, Sputum cultures x2 prior to discharge if possible -Levaquin PO Hypertension -Resume home antihypertensive-metoprolol. Coronary artery disease -Continue aspirin and statin Decreased PO intake -Family reports only a few -Calorie count ordered DVT prophylaxis: Heparin SQ Advanced directive: Full code <Suze Blanchard - Last Filed: 01/06/24 14:42> Patient seen and examined with Santo. Plan of care discussed with Ms. Blanchard and I agree with the plan as documented. Patient with bronchiectasis with high risk for bacterial pneumonia. History of MAC, and need to rule out possible reactivation or reinfection. Pulmonary Dr. Muñoz has evaluated patient and recommended 3 sputum samples. Continue oral Levaquin. Chest physiotherapy. Patient [id number] is concerned the patient weakness and easy fatigability. PT consulted to evaluate to aid with disposition. Check oxygen saturations with exertion for home oxygen. <phyllis rose - Last Filed: 01/06/24 18:08>
--- NOTE | 2024-01-07 11:06 | P.PN ---
Subjective Date of Service: 01/07/24 Chief Complaint: Progressive pneumonia Subjective: Improving (Patient is improving has some cough and congestion denies any fever chills) Review of Systems General: Weakness Respiratory: Cough Physical Examination - Vital Signs Temperature: 98.1 F Blood Pressure: 116/71 Pulse: 71 Respirations: 16 Pulse Ox (%): 96 - Physical Exam General: Alert, Oriented x3 HEENT: Atraumatic Neck: Supple Cardiovascular: No edema, Regular rate/rhythm Gastrointestinal: Normal bowel sounds, Soft and benign Assessment And Plan - Current Problems (Diagnosis) (1) Pneumonia Onset Date: 08/04/17 Current Visit: No Status: Acute Plan: Patient has a pneumonia on the left side that has worsened increasing tree-in-bud changes in the left lower lobe cultures have been ordered patient's white count is declining patient has had no fever vital signs all stable will await for sputum cultures to decide on mode of treatment Qualifiers: Pneumonia type: due to unspecified organism Laterality: right Lung location: lower lobe of lung Qualified Code(s): J18.9 - Pneumonia, unspecified organism (2) Dysphasia Current Visit: Yes Status: Acute Plan: Patient has some expressive dysphasia/check ultrasound of his carotids CT scan shows chronic microvascular changes
[2024-01-07 12:28] LABS: Absolute Eosinophils 0.1 K/uL (0-0.5); Absolute Lymphocytes (CBC) 1.1 K/uL (0.7-4.9); Absolute Monocytes 1.1 K/uL (0.1-1.3); Absolute Neutrophil 6.3 K/uL (1.8-8.0); Basophils % 0.4 % (0-1.3); Eosinophils % 0.9 % (0-4.4); Hematocrit 36.9 % (39.6-49.0); Hemoglobin 12.2 g/dL (13.6-17.9); Lymphocytes % 12.6 % (15.3-44.8); MCH 28.7 pg (27.0-35.0); MCHC 33.2 g/dL (32.0-36.0); MCV 86.6 fL (80-100); MPV 7.9 fL (7.6-11.3); Neutrophils % 73.1 % (41.7-73.7); Platelets 397 thou/uL (152-406); RBC Red Blood Cell Count 4.26 M/uL (4.33-5.43); Red Cell Distribution Width 15.9 % (12.1-15.2)
[2024-01-07 12:43] LABS: Anion Gap 8.3 mEq/L (5.0-15.0); Potassium 4.3 mEq/L (3.5-5.1)
[2024-01-07 13:07] LABS: Band Neutrophils 1 % (0-1); Blood Morphology Comment NOT SEEN (NOT SEEN); Differential Total Cells Count 100; Eosinophils 1 % (0-3); Lymphocytes 14 % (15-42); Monocytes 11 % (0-10); Platelet Estimate ADEQ; Segmented Neutrophils 73 % (40-80)
--- NOTE | 2024-01-07 14:06 | P.PN ---
Date of Service: 01/07/24 Subjective Awake lying comfortably in bed no new complaints, on Room Air Evaluation for inpatient rehab ROS 10 point ROS as noted above, otherwise negative Physical examination General: Alert and oriented x3, NAD, Conversing well HEENT: Atraumatic, normocephalic, MMM Neck: Supple, no elevated JVD Heart: S1 S2 present, RRR, no pedal edema Lungs: Clear bilateral breath sounds, on RA Abdomen: Soft on palpation, ND/NT, normal bowel sounds. Extremities: No tenderness, no deformity Skin: Normal skin turgor, no rash Neuro: No focal motor deficit. Normal speech. Psychiatry: Normal mood, no agitation. Vitals Reviewed Problem list left sided Pneumonia Bronchiectasis Chronic interstitial lung disease History of MAC Leukocytosis. Hypertension Coronary artery disease Decreased PO intake Assessment and Plan left sided Pneumonia Bronchiectasis Chronic interstitial lung disease History of MAC Leukocytosis- resolved -Chest CT demonstrated tree-in-bud infiltrates -Reported expressive aphasia -Speech therapy consult for swallow evaluation -Pulmonary input appreciated -Chest physiotherapy -Sputum cultures -continue Bronchodilators -WBC 8.6 -Dr Muñoz consulted, Sputum cultures x2 prior to discharge if possible -continue Levaquin PO Hyponatremia -Na 127 -1200 fluid restriction Hypertension -Resume home antihypertensive-metoprolol. Coronary artery disease -Continue aspirin and statin Decreased PO intake -Family reports only a few -Calorie count ordered DVT prophylaxis: Heparin SQ Advanced directive: Full code Dispo evaluation for IPR <SantoSuze - Last Filed: 01/07/24 13:52> Patient seen and examined Plan of care discussed with Ms. Blanchard. Patient reports generalized weakness. He reported nonproductive. He has not been able to provide sputum sample for AFB testing. He was evaluated by PT, patient noted to have decreased performance status. He will benefit from inpatient rehab. Social service evaluating for inpatient rehab placement. Case discussed with Dr. Muñoz who is recommending bronchoscopy for sample if patient cannot provide sputum sample. Continue Levaquin <phyllis rose - Last Filed: 01/07/24 17:19>
--- NOTE | 2024-01-08 07:41 | P.DS ---
Admission Date: 01/04/24 Discharge Date: 01/08/24 Disposition: TRANSFER TO INPATIENT REHAB Discharge Condition: GOOD Reason for Admission: Progressive pneumonia Brief History of Present Illness: Diagnosis Right sided Pneumonia Bronchiectasis Chronic interstitial lung disease History of MAC Leukocytosis. Hypertension Coronary artery disease Decreased PO intake HPI 01/04/2024 Jerad Minor is a 73-year-old man presented to the emergency department with altered mental status and productive cough for unknown amount of days. The patient is alert and oriented x 2 (name and place only). He is a poor histo arnoldo-appears acutely confused, and will answer some but not all questions. The patient states he has a past medical history of skin cancer (unknown remission status), lung infection (unknown if inactive), depression, hypertension, HDL, and hypothyroidism. He is a former smoker but quit in 1983. Head CT was performed and revealed no abnormalities. However, chest x-ray performed revealed patchy airspaces in right lower lung suggestive of pneumonia. The patient's curb 65 score is 3. The patient was giving vancomycin and ceftriaxone after blood cultures x 2 was collected in the emergency department. Hospital Course: Jerad Minor is a pleasant 73 year old male with a past medical history significant for MAC, bronchiectasis, chronic interstitial lung disease, coronary artery disease, hypertension who was admitted to the [facility] on 01/04/24 for Right lower lobe pneumonia. Jerad presented to the ED with chief complaint of productive cough and AMS. On evaluation of Chest xray and Chest CT, right lower lobe pneumonia was revealed. He was afebrile and remained on RA this admission. Dr. Muñoz was consulted. Jerad has a history of MAC and now being evaluated for recurrance of MAC. One sputum culture was obtained growing gram positive in prs and chs. Continued evaluation will take place outpatient with Dr. Muñoz. Jerad was evaluated by physical therapy and deemed appropriate for inpatient rehab for continued strengthening. He is tolerating PO diet and IV levaquin, urinating without difficulty, and hemodynamically stable for discharge. He has a strong family support with his brother in law and daughter. On 01/08/24, Jerad was seen on morning rounds and deemed medically stable for discharge to inpatient rehab. Jerad was discharged with instructions to schedule follow-up appointments with PCP and Dr. Muñoz. Jerad was provided prescriptions for levaquin and ambien. Physical examination General: AAO x2, NAD, Conversing well HEENT: Atraumatic, normocephalic, MMM Neck: Supple, no elevated JVD Heart: normal S1 S2 present, Normal sinus rhythm, no pedal edema Lungs: Clear bilateral breath sounds, nonlabored breathing,on RA Abdomen: Soft and benign on palpation, ND/NT, normal bowel sounds Extremities: No tenderness, no deformity Skin: no rash Neuro: No focal motor deficit. Normal speech. Psychiatry: Normal mood, no agitation. Vital Signs/Physical Exam: Temp Pulse Resp BP Pulse Ox 97 F 77 16 122/73 95 01/08/24 04:00 01/08/24 04:00 01/08/24 04:00 01/08/24 04:00 01/08/24 04:00 Laboratory Data at Discharge: WBC 8.60 thou/uL (4.3-10.9) 01/07/24 12:01 Hgb 12.2 g/dL (13.6-17.9) L 01/07/24 12:01 Hct 36.9 % (39.6-49.0) L 01/07/24 12:01 Plt Count 397 thou/uL (152-406) 01/07/24 12:01 PT 13.9 SECONDS (9.4-12.5) H 01/04/24 19:55 INR 1.25 01/04/24 19:55 APTT 27.3 SECONDS (24.3-36.9) 01/04/24 19:55 Sodium 127 mEq/L (136-145) L 01/07/24 12:01 Potassium 4.3 mEq/L (3.5-5.1) 01/07/24 12:01 BUN 17 mg/dL (7-18) 01/07/24 12:01 Creatinine 1.10 mg/dL (0.70-1.30) 01/07/24 12:01 Glucose 112 mg/dL (74-106) H 01/07/24 12:01 Phosphorus 2.9 mg/dL (2.5-4.9) 01/05/24 05:34 Magnesium 1.8 mg/dL (1.6-2.4) 01/05/24 05:34 Total Bilirubin 0.9 mg/dL (0.2-1.0) 01/04/24 19:55 AST 24 U/L (15-37) 01/04/24 19:55 ALT 37 U/L (16-61) 01/04/24 19:55 Alkaline Phosphatase 88 U/L (45-117) 01/04/24 19:55 Triglycerides 64 mg/dL (<150) 01/05/24 05:34 Cholesterol 84 mg/dL (<200) 01/05/24 05:34 HDL Cholesterol 36 mg/dL (40-60) L 01/05/24 05:34 Cholesterol/HDL Ratio 2.33 01/05/24 05:34 Home Medications: Aspirin [Ecotrin 81 MG] 81 mg PO DAILY 08/04/17 Atorvastatin Calcium [Lipitor] 40 mg PO BEDTIME 08/04/17 Benzonatate [Tessalon Perle*] 200 mg PO TID PRN #30 cap 08/04/17 Cholecalciferol (Vitamin D3) [Vitamin D 1000 Iu Tab*] 1,000 unit PO DAILY 08/04/17 Metoprolol Succinate 12.5 mg PO BID 08/04/17 Quetiapine [Seroquel*] 50 mg PO BEDTIME 08/04/17 Sertraline [Zoloft*] 50 mg PO DAILY 08/04/17 Zolpidem Tartrate [Ambien*] 5 mg PO BEDTIME PRN PRN 01/08/24 levoFLOXacin [Levaquin*] 750 mg PO DAILY 10 Days #0 tab 01/08/24 Physician Discharge Instructions: PROBLEM: Pneumonia GOAL: Clear understanding of disease process INSTRUCTIONS: Diet: AHA Activity: Fall precautions 1. Please call and schedule a follow-up appointment with your PCP in 3-5 days - Please follow-up with your PCP for medication refills/adjustments 2. Please call and schedule a follow-up appointment with Dr. Muñoz in one week -sputum culture sent -will need to collect another sputum culture, order is in 3. Continue heart healthy diet, see [employer] recommendations below, fluid restriction at 1200 ml daily 4. activity restrictions fall precautions 5. Return to the ED if symptoms worsen # New medications # Speech therapy recommendations Regular food with small bites and sips thin liquids, alternate solids and liquids Diet: AHA Activity: Fall precautions Followup: Alon Gray FNP [Primary Care Provider] - 1-2 Weeks Sony Muñoz MD [ACTIVE - CAN ADMIT] -
[2024-01-08 08:17] VITALS: O2SAT 97
[2024-01-08 08:36] LABS: Anion Gap 9.3 mEq/L (5.0-15.0); Potassium 4.3 mEq/L (3.5-5.1)
--- NOTE | 2024-01-08 10:37 | P.PN ---
Subjective Date of Service: 01/08/24 Chief Complaint: Pneumonia Subjective: Improving (Patient is improving denies any chest congestion cough fever or chills) Review of Systems Unremarkable Physical Examination - Vital Signs Temperature: 97.5 F Blood Pressure: 138/83 Pulse: 76 Respirations: 16 Pulse Ox (%): 98 - Physical Exam General: Alert, Oriented x3 Respiratory: Clear to auscultation bilaterally Cardiovascular: No edema, Normal pulses Assessment And Plan - Current Problems (Diagnosis) (1) Pneumonia Onset Date: 08/04/17 Current Visit: No Status: Acute Plan: Patient admitted with progressive pneumonia is clinically improving no fever white count has declined to normal cultures have been sent plan for discharge on levofloxacin follow-up with me in 2 weeks with a pre-clinic chest x-ray continue with levofloxacin for another week 750 mg daily Qualifiers: Pneumonia type: due to unspecified organism Laterality: right Lung location: lower lobe of lung Qualified Code(s): J18.9 - Pneumonia, unspecified organism (2) Dysphasia Current Visit: Yes Status: Acute Plan: Patient has some expressive dysphasia/check ultrasound of his carotids CT scan shows chronic microvascular changes
--- NOTE | 2024-01-08 11:12 | RAD REPORT ---
EXAMINATION: ONE VIEW CHEST XR CLINICAL INDICATION: pneumonia TECHNIQUE: Frontal chest projection is submitted. Examination is limited by patient positioning and t echnique. COMPARISON: 01/04/2024 FINDINGS: Emphysematous changes are present. Ill-defined opacity in the right lung base appears mildly improved since 01/04/2024 study. Poorly defined 2 cm opacity in the right upper lung laterally with internal lucency appears mildly more conspicuous likely thin-walled cavity. The heart is normal in si ze. Postsurgical changes of prior CABG noted. IMPRESSION: Emphysematous changes are present with mild improvement in right lung base infiltrate since prior destin dy.
[2024-01-08 11:18] LABS: Hematocrit 37.7 % (39.6-49.0); Hemoglobin 12.3 g/dL (13.6-17.9); MCH 28.4 pg (27.0-35.0); MCHC 32.7 g/dL (32.0-36.0); MCV 86.8 fL (80-100); MPV 7.5 fL (7.6-11.3); Platelets 446 thou/uL (152-406); RBC Red Blood Cell Count 4.35 M/uL (4.33-5.43); Red Cell Distribution Width 16.1 % (12.1-15.2)
[2024-01-08 16:46] VITALS: TEMP 97.5
[2024-01-08] MEDS: CALCIUM CARBONATE CHEW 500MG TAB PO PRN (16:57)
[2024-01-08 20:01] VITALS: BP 123/79
[2024-01-08] MEDS ORDERED: CALCIUM CARBONATE CHEW 500MG TAB PO SCH (21:00)
== END 2024-01-08 21:40 | DRG 193 ==
LOC: ER 18:40 → ERHOLD 21:55 → 2ND 22:28
PROVIDERS: ADMIT Internal Medicine; ATTEND Internal Medicine
DX: J18.9 Pneumonia, unspecified organism (principal); G93.41 Metabolic encephalopathy; E87.1 Hypo-osmolality and hyponatremia; I10 Essential (primary) hypertension; E78.5 Hyperlipidemia, unspecified; J47.9 Bronchiectasis, uncomplicated; E03.9 Hypothyroidism, unspecified; C44.90 Unspecified malignant neoplasm of skin, unspecified; I25.10 Atherosclerotic heart disease of native coronary artery without angina pectoris; I25.2 Old myocardial infarction; R47.02 Dysphasia; Z95.5 Presence of coronary angioplasty implant and graft; Z95.1 Presence of aortocoronary bypass graft; Z11.52 Encounter for screening for COVID-19; Z79.82 Long term (current) use of aspirin; Z86.73 Personal history of transient ischemic attack (TIA), and cerebral infarction without residual deficits; Z79.890 Hormone replacement therapy; Z87.891 Personal history of nicotine dependence; Z79.899 Other long term (current) drug therapy
CPT/HCPCS: 36415; 70450; 71045; 71260; 80048; 80053; 80061; 81001; 83605; 83735; 83880; 84100; 84145; 84443; 84484; 85025; 85027; 85610; 85730; 86140; 87040; 87070; 87205; 87804; 87811; 92610; 93005; 93880; 94760; 96365; 96367; 97116; 97161; 99285; J0696; J1644; J7030; J7050; Q0162; Q9967